=== PATIENT | female | born 1995 | race African-American/Black ===

== ENCOUNTER 2020-01-11 21:43 | Emergency (ER) | payer OTHER ==
[2020-01-11 22:11] LABS: BILIRUBIN,URINE NEGATIVE (NEGATIVE); GLUCOSE, URINE (UA) NEGATIVE (NEGATIVE); KETONES,URINE (UA) NEGATIVE (NEGATIVE); LEUKOCYTE ESTERASE, URINE NEGATIVE (NEGATIVE); NITRITE,URINE NEGATIVE (NEGATIVE); OCCULT BLOOD,URINE NEGATIVE (NEGATIVE); PROTEIN,URINE NEGATIVE (NEGATIVE); UROBILINOGEN,URINE 0.2 (NORMAL) E.U./dL (NORMAL)
[2020-01-11 22:16] LABS: CLARITY,URINE CLEAR (CLEAR); HCG UR QUAL NEGATIVE
[2020-01-11 22:24] LABS: RBC,URINE None Seen /HPF (0-5)
[2020-01-11 22:25] LABS: BACTERIA,URINE None Seen /HPF (None Seen); SQUAMOUS EPITHELIAL CELL,UR MANY Squamous (<= Few)
--- NOTE | 2020-01-11 22:37 | ED Physician Documentation ---
PD HPI FEMALE - Stated complaint Stated Complaint: FEM /CRAMPING - Chief complaint Chief Complaint: Abd Pain - History obtained from History obtained from: Patient - Additional information Additional information: Patient comes emergency department complaining of lower abdominal crampy discomfort and nausea for about the last week. She denies any dysuria. She states she has a little bit of low back pain. She denies localization of the pain to one side or the other. No fevers. The patient states that she began her last menstrual period on December 26 and ended on the . She states that on that day, she had sexual intercourse with her partner and that her symptoms began a few days after that. The patient states thatShe is concerned that she may be , due to the feeling of nausea and tiredness. She states she took a test at home and this was negative. She states she has had urinary tract infections before and that this does not feel like 1 of those. She states she has not been vomiting and has not had any diarrhea. If anything, she states she has had some mild constipation recently, which she defines as harder stools, but still going regularly. Patient states that she is otherwise healthy. She has not had any known or direct sick contacts. No other complaints at this time. Review of Systems Ten Systems: 10 systems reviewed and negative Constitutional: reports: Reviewed and negative Eyes: reports: Reviewed and negative Ears: reports: Reviewed and negative Nose: reports: Reviewed and negative Throat: reports: Reviewed and negative Cardiac: reports: Reviewed and negative Respiratory: reports: Reviewed and negative GI: reports: Abdominal Pain, Nausea : reports: Reviewed and negative Skin: reports: Reviewed and negative Musculoskeletal: reports: Reviewed and negative Neurologic: reports: Reviewed and negative Psychiatric: reports: Reviewed and negative Endocrine: reports: Reviewed and negative Immunocompromised: reports: Reviewed and negative PD PAST MEDICAL HISTORY - Past Medical History Past Medical History: No - Past Surgical History Past Surgical History: Yes General: Hiatal hernia repair - Allergies Allergies/Adverse Reactions: Allergies Allergy/AdvReac Type Severity Reaction Status Date / Time sulfamethoxazole Allergy Anaphylaxis Verified 01/11/20 21:52 [From Bactrim] trimethoprim [From Bactrim] Allergy Anaphylaxis Verified 01/11/20 21:52 - Social History Does the pt smoke?: No Smoking Status: Never smoker Does the pt drink ETOH?: Yes Does the pt have substance abuse?: No - Immunizations Immunizations are current?: No - POLST Patient has POLST: No PD ED PE NORMAL - Vitals Vital signs reviewed: Yes - General General: Alert and oriented X 3, No acute distress - HEENT HEENT: PERRL - Neck Neck: Supple, no meningeal sign - Cardiac Cardiac: RRR, No murmur - Respiratory Respiratory: Clear bilaterally - Abdomen Abdomen: Soft, Non distended, Other (Mild diffuse tenderness lower abdomen; no rebound or guarding) - Derm Derm: Warm and dry - Extremities Extremities: No deformity - Neuro Neuro: Alert and oriented X 3 - Psych Psych: Normal mood, Normal affect Results - Vitals Vitals: Vital Signs - 24 hr 01/11/20 21:48 Temperature 37.2 C Heart Rate 85 Respiratory 16 Rate Blood Pressure 138/66 H O2 Saturation 99 Oxygen O2 Source Room air - Labs Labs: Laboratory Tests 01/11/20 21:02 Urine Color LIGHT YELLOW Urine Clarity CLEAR Urine pH 7.0 Ur Specific [place] <=1.005 Urine Protein NEGATIVE Urine Glucose (UA) NEGATIVE Urine Ketones NEGATIVE Urine Occult Blood NEGATIVE Urine Nitrite NEGATIVE Urine Bilirubin NEGATIVE Urine Urobilinogen 0.2 (NORMAL) Ur Leukocyte Esterase NEGATIVE Urine RBC None Seen Urine WBC 0-3 Ur Squamous Epith Cells MANY Squamous H Urine Bacteria None Seen Urine Culture Comments NOT INDICATED Urine HCG, Qual NEGATIVE PD MEDICAL DECISION MAKING - ED course Complexity details: reviewed results, re-evaluated patient, considered diffe carlottatial, d/w patient ED course: Patient was worked up with urinalysis and test, both of which were found to be negative.I discussed with the patient that at this point, it is very unlikely that she would have any hormones of in her system whatsoever, as she is only 2-1/2 weeks out from First day of her last.. I have discussed with her that she may have 1 of the viral illnesses that is going around and causing GI upset. Some of the discomfort may be from the constipation she has had recently. She does not have a urinary tract infection and does not feel that she has an STD and does not wish to be tested at this time. We have discussed that if she develops copious foul-smelling discharge especially with fever, she should be reevaluated and tested. However, at this time, she feels her discharge is within normal limits. We have also discussed retesting for if she misses her period. Departure - Departure Disposition: 01 Home, Self Care Clinical Impression: Abdominal pain Qualifiers: Abdominal location: lower abdomen, unspecified Qualified Code(s): R10.30 - Lower abdominal pain, unspecified Condition: Good Instructions: ED Abdominal Pain Unkn Cause Comments: Your urinalysis and test are both negative. It is too early at this point, given your last menstrual period and 26 December, for hormones to be in your system, even if you are in the early stages of a . In general, it would be another week before a fertilized egg would be implanted in your uterine lining, and it is only at this point that hormones are produced. If you miss your next., And continue to have symptoms, then you should take another test, [place]. At this point in time, there is no evidence of an STD. However, if you begin to develop heavy vaginal discharge that smells bad, or if you begin to notice increasing pain throughout your pelvis, especially with fever, then you should be checked. There are many viral gastrointestinal illnesses going around right now and these can sometimes cause just a vague sense of intestinal discomfort and nausea. If this is the cause of your symptoms, it will blow over on its own in the next week.
[2020-01-11 22:46] VITALS: BP 128/82
== END 2020-01-11 22:45 | disposition home or self-care (01) ==
LOC: ED 21:43
DX: R10.30 Lower abdominal pain, unspecified (principal)
CPT/HCPCS: 81001; 81025; 87086; 99282; 99283

== ENCOUNTER 2020-06-30 15:36 | Emergency (ER) | payer OTHER ==
[2020-06-30 15:55] VITALS: BP 109/64
[2020-06-30 17:21] LABS: BILIRUBIN,URINE NEGATIVE (NEGATIVE); GLUCOSE, URINE (UA) NEGATIVE (NEGATIVE); KETONES,URINE (UA) NEGATIVE (NEGATIVE); LEUKOCYTE ESTERASE, URINE NEGATIVE (NEGATIVE); NITRITE,URINE NEGATIVE (NEGATIVE); OCCULT BLOOD,URINE NEGATIVE (NEGATIVE); PH,URINE 6.5 PH (5.0-7.5); PROTEIN,URINE NEGATIVE (NEGATIVE); UROBILINOGEN,URINE 0.2 (NORMAL) E.U./dL (NORMAL)
[2020-06-30 17:27] LABS: CLARITY,URINE CLEAR (CLEAR); HCG UR QUAL NEGATIVE
--- NOTE | 2020-06-30 18:05 | ED Physician Documentation ---
History of Present Illness - Stated complaint Stated Complaint: FEMALE - Chief complaint Chief Complaint: Abd Pain - Additonal information Additional information: 24-year-old female presents to the emergency department for evaluation of ab normal vaginal discharge. She reports that approximately 5 days ago she completed a weeklong prescription of Flagyl for bacterial vaginosis. She did follow-up at the [facility] but a repeat pelvic exam was not completed. She felt that the symptoms had improved until yesterday when she began having pelvic cramping and discolored discharge. She denies dysuria, fevers or flank pain. Review of Systems Constitutional: denies: Fever, Chills Nose: denies: Rhinorrhea / runny nose, Reviewed and negative Throat: denies: Dental pain / toothache, Oral lesions / sores, Sore throat Cardiac: denies: Chest pain / pressure, Palpitations, Pedal edema Respiratory: denies: Dyspnea, Cough GI: denies: Abdominal Pain, Nausea, Vomiting : reports: Discharge. denies: Dysuria, Frequency, LMP, Vaginal bleeding, Irregular menses Skin: denies: Rash Musculoskeletal: denies: Neck pain, Back pain PD PAST MEDICAL HISTORY - Past Surgical History Past Surgical History: Yes General: Hiatal hernia repair - Allergies Allergies/Adverse Reactions: Allergies Allergy/AdvReac Type Severity Reaction Status Date / Time sulfamethoxazole Allergy Anaphylaxis Verified 06/30/20 15:55 [From Bactrim] trimethoprim [From Bactrim] Allergy Anaphylaxis Verified 06/30/20 15:55 - Social History Does the pt smoke?: No Smoking Status: Never smoker Does the pt drink ETOH?: Yes Does the pt have substance abuse?: No - Immunizations Immunizations are current?: No - POLST Patient has POLST: No PD ED PE NORMAL - General General: Alert and oriented X 3, No acute distress - Cardiac Cardiac: RRR, No murmur - Respiratory Respiratory: No respiratory distress - Abdomen Abdomen: Normal bowel sounds, Soft - Female Female : Telecommunicator Supervisor present, Other (Normal female external exam. No discharge. Speculum pelvic exam reveals no discharge. No CMT or adnexal tenderness.) Results - Vitals Vitals: Vital Signs - 24 hr 06/30/20 15:51 Temperature 36.5 C Heart Rate 72 Respiratory 16 Rate Blood Pressure 109/64 O2 Saturation 100 Oxygen O2 Source Room air - Labs Labs: Laboratory Tests 06/30/20 17:08 Urine Color YELLOW Urine Clarity CLEAR Urine pH 6.5 Ur Specific [place] 1.010 Urine Protein NEGATIVE Urine Glucose (UA) NEGATIVE Urine Ketones NEGATIVE Urine Occult Blood NEGATIVE Urine Nitrite NEGATIVE Urine Bilirubin NEGATIVE Urine Urobilinogen 0.2 (NORMAL) Ur Leukocyte Esterase NEGATIVE Ur Microscopic Review NOT INDICATED Urine Culture Comments NOT INDICATED Urine HCG, Qual NEGATIVE PD MEDICAL DECISION MAKING - ED course Complexity details: d/w patient ED course: 24-year-old female comes to the ER for evaluation of what she reported as vaginal discharge. She recently completed a course of Flagyl for bacterial vaginosis. Her urine today is unremarkable she is not and it shows no signs of infection. I did do a pelvic exam. She had no abnormal vaginal discharge. There was nothing to suggest yeast infection. There was no CMT or adnexal tenderness. A wet prep was sent. But I will defer any further antibiotics or treatment unless that wet prep is positive. Given how busy the emergency department is at this time she will be discharged without final results but I will follow-up on them tomorrow Departure - Departure Disposition: 01 Home, Self Care Clinical Impression: Vaginal discharge Condition: Stable Record reviewed to determine appropriate education?: Yes Comments: Katey your pelvic exam was essentially normal. You did not appear to have any abnormal vaginal discharge. I have sent what is called a wet prep to the lab to check for yeast or a return of bacterial vaginosis. You will be notified tomorrow if it is positive and you require further treatment.
== END 2020-06-30 18:30 | disposition home or self-care (01) ==
LOC: ED 15:36
DX: N89.8 Other specified noninflammatory disorders of vagina (principal)
CPT/HCPCS: 81001; 81003; 81025; 87086; 87210; 99282; 99283

== ENCOUNTER 2020-07-16 11:26 | Emergency (ER) | payer OTHER ==
--- NOTE | 2020-07-16 12:14 | ED Physician Documentation ---
History of Present Illness - Stated complaint Stated Complaint: FEMALE - Chief complaint Chief Complaint: General - History obtained from History obtained from: Patient - Additonal information Additional information: 24yo Woman presents to the emergency department with 2 weeks worth of grayish thick vaginal discharge associated with vaginal itching and mild dysuria. Also had some spots of vaginal bleeding off cycle. Has had BV in the past and this feels similar. She says she had negative testing for STDs within a month and a half. 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 : None HEENT: None Psych: None Musculoskeletal: None Derm: None - Past Surgical History Past Surgical History: Yes General: Hiatal hernia repair - Present Medications Home Medications: Ambulatory Orders Medication Instructions Recorded Confirmed metroNIDAZOLE [Flagyl] 500 mg PO BID #14 tablet 07/16/20 - Allergies Allergies/Adverse Reactions: Allergies Allergy/AdvReac Type Severity Reaction Status Date / Time sulfamethoxazole Allergy Anaphylaxis Verified 06/30/20 15:55 [From Bactrim] trimethoprim [From Bactrim] Allergy Anaphylaxis Verified 06/30/20 15:55 - Social History Does the pt smoke?: No Smoking Status: Never smoker Does the pt drink ETOH?: Yes ETOH Use: Wine, Beer, Liquor Does the pt have substance abuse?: No - Immunizations Immunizations are current?: Yes - POLST Patient has POLST: No PD ED PE NORMAL - Vitals Vital signs reviewed: Yes - General General: Alert and oriented X 3, No acute distress - Abdomen Abdomen: Soft, Non tender - Female Female : Other (Pelvic exam done with Argelia Andrade RN present and chaperoning. She has some folliculitis from waxing, thin white discharge in the vault with mild cervicitis but no cervical motion or adnexal tenderness.) - Back Back: No CVA TTP - Neuro Neuro: Alert and oriented X 3, Normal speech Results - Vitals Vitals: Vital Signs - 24 hr 07/16/20 11:32 Temperature 36.9 C Heart Rate 68 Respiratory 16 Rate Blood Pressure 106/60 O2 Saturation 100 Oxygen O2 Source Room air - Labs Labs: Microbiology 07/16/20 12:34 Wet Prep - Final Vaginal Laboratory Tests 07/16/20 12:25 Urine Color YELLOW Urine Clarity CLOUDY Urine pH 7.0 Ur Specific [place] 1.020 Urine Protein NEGATIVE Urine Glucose (UA) NEGATIVE Urine Ketones NEGATIVE Urine Occult Blood NEGATIVE Urine Nitrite NEGATIVE Urine Bilirubin NEGATIVE Urine Urobilinogen 0.2 (NORMAL) Ur Leukocyte Esterase MODERATE H Urine RBC 0-5 Urine WBC >25 H Ur Squamous Epith Cells MANY Squamous H Urine Bacteria Many H Ur Microscopic Review INDICATED Urine Culture Comments NOT INDICATED Urine HCG, Qual NEGATIVE Departure - Departure Disposition: 01 Home, Self Care Clinical Impression: Bacterial vaginosis Condition: Good Record reviewed to determine appropriate education?: Yes Instructions: ED Vaginosis Bacterial Prescriptions: metroNIDAZOLE [Flagyl] 500 mg PO BID #14 tablet Comments: Call your doctor to arrange a follow-up appointment, make the next available appointment. In the interim, return anytime if worse or if new symptoms develop.
[2020-07-16 12:32] LABS: BILIRUBIN,URINE NEGATIVE (NEGATIVE); GLUCOSE, URINE (UA) NEGATIVE (NEGATIVE); KETONES,URINE (UA) NEGATIVE (NEGATIVE); LEUKOCYTE ESTERASE, URINE MODERATE (NEGATIVE); NITRITE,URINE NEGATIVE (NEGATIVE); OCCULT BLOOD,URINE NEGATIVE (NEGATIVE); PROTEIN,URINE NEGATIVE (NEGATIVE); UROBILINOGEN,URINE 0.2 (NORMAL) E.U./dL (NORMAL)
[2020-07-16 12:35] LABS: CLARITY,URINE CLOUDY (CLEAR); HCG UR QUAL NEGATIVE
[2020-07-16 12:38] LABS: BACTERIA,URINE Many /HPF (None Seen); RBC,URINE 0-5 /HPF (0-5); SQUAMOUS EPITHELIAL CELL,UR MANY Squamous (<= Few)
[2020-07-16 13:11] VITALS: BP 111/66
[2020-07-16 16:35] LABS: CANDIDA GROUP DNA POSITIVE (NEGATIVE); CANDIDA KRUSEI DNA NEGATIVE (NEGATIVE); TRICHOMONAS VAGINALIS DNA NEGATIVE (NEGATIVE)
== END 2020-07-16 13:15 | disposition home or self-care (01) ==
LOC: ED 11:26
DX: N76.0 Acute vaginitis (principal); B96.89 Other specified bacterial agents as the cause of diseases classified elsewhere
CPT/HCPCS: 81001; 81003; 81025; 81599; 87086; 87210; 87491; 87591; 87661; 87801; 99283; 99284

== ENCOUNTER 2020-09-23 13:23 | Emergency (ER) | payer OTHER ==
[2020-09-23] MEDS ORDERED: cephALEXin 250 MG CAPSULE PO STA (13:47)
[2020-09-23] MEDS ORDERED: predniSONE 20 MG TABLET PO STA (13:47)
[2020-09-23] MEDS ORDERED: FLUCONAZOLE 100 MG TABLET PO STA (13:47)
--- NOTE | 2020-09-23 13:49 | ED Physician Documentation ---
History of Present Illness - Stated complaint Stated Complaint: SWOLLEN LIPS - Chief complaint Chief Complaint: Heent - History obtained from History obtained from: Patient - Additonal information Additional information: She is on day 5 of ciprofloxacin for UTI, still has mild dysuria but now has some discharge as well feeling like a yeast infection and she noted a sore on the left side of the upper lip. She has had that sore before, a few months ago she had a UTI and was on the same attic, but at that time she was also getting Flagyl for bacterial vaginosis and something for yeast infection as well. This time she is only on the Cipro so she is convinced that the lip sore is due to the Cipro. 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 : None HEENT: None Psych: None Musculoskeletal: None Derm: None - Past Surgical History Past Surgical History: Yes General: Hiatal hernia repair - Present Medications Home Medications: Ambulatory Orders Medication Instructions Recorded Confirmed metroNIDAZOLE [Flagyl] 500 mg PO BID #14 tablet 07/16/20 Cephalexin [Keflex] 500 mg PO Q6H #20 capsule 09/23/20 predniSONE [Deltasone] 60 mg PO DAILY 5 Days #15 tablet 09/23/20 - Allergies Allergies/Adverse Reactions: Allergies Allergy/AdvReac Type Severity Reaction Status Date / Time sulfamethoxazole Allergy Anaphylaxis Verified 09/23/20 13:30 [From Bactrim] trimethoprim [From Bactrim] Allergy Anaphylaxis Verified 09/23/20 13:30 - Social History Does the pt smoke?: No Smoking Status: Never smoker Does the pt drink ETOH?: Yes Does the pt have substance abuse?: No - Immunizations Immunizations are current?: Yes - POLST Patient has POLST: No PD ED PE NORMAL - Vitals Vital signs reviewed: Yes - General General: Alert and oriented X 3, No acute distress - HEENT HEENT: Other (There is ulcerated lesion measuring about 3 mm x 1 cm to the inner upper lip with mild swelling. No fluctuance.) - Derm Derm: No rash - Neuro Neuro: Alert and oriented X 3, Normal speech Results - Vitals Vitals: Vital Signs - 24 hr 09/23/20 13:30 Temperature 36.5 C Heart Rate 80 Respiratory 18 Rate Blood Pressure 114/84 H O2 Saturation 100 Oxygen O2 Source Room air PD MEDICAL DECISION MAKING - ED course ED course: 25-year-old woman with apparent medication reaction causing lip sore to Cipro. Also symptoms of a yeast infection. She is administered Diflucan here for that and prednisone and her antibiotics were changed. Departure - Departure Disposition: 01 Home, Self Care Clinical Impression: Vaginal discharge Medication reaction Qualifiers: Encounter type: initial encounter Qualified Code(s): T50.905A - Adverse effect of unspecified drugs, medicaments and biological substances, initial encounter Condition: Good Record reviewed to determine appropriate education?: Yes Prescriptions: predniSONE [Deltasone] 60 mg PO DAILY 5 Days #15 tablet Cephalexin [Keflex] 500 mg PO Q6H #20 capsule Comments: Probably better to avoid ciprofloxacin in the future. Returning if worse. I am changing your antibiotics for the next few days given persistent UTI symptoms.
[2020-09-23 14:02] VITALS: BP 107/71
== END 2020-09-23 14:02 | disposition home or self-care (01) ==
LOC: ED 13:23
DX: N89.8 Other specified noninflammatory disorders of vagina (principal); K13.0 Diseases of lips; T50.905A Adverse effect of unspecified drugs, medicaments and biological substances, initial encounter
CPT/HCPCS: 99282; 99283; A9270; J7512

== ENCOUNTER 2020-09-25 13:24 | Emergency (ER) | payer OTHER ==
[2020-09-25 13:34] VITALS: BP 100/56
[2020-09-25] MEDS ORDERED: LIDOCAINE VISCOUS 2% 15 ML UDC MM STA (13:54)
--- NOTE | 2020-09-25 13:57 | ED Physician Documentation ---
PD HPI SKIN - Stated complaint Stated Complaint: MOUTH/LIP SWELLING - Chief complaint Chief Complaint: Allergic Rx - History obtained from History obtained from: Patient (Recently on Cipro for UTI, the last time she was on Cipro she developed an oral ulcer and lip swelling. This happened again. 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 HEENT: None Psych: None Musculoskeletal: None Derm: None - Past Surgical History Past Surgical History: Yes General: Hiatal hernia repair - Present Medications Home Medications: Ambulatory Orders Medication Instructions Recorded Confirmed metroNIDAZOLE [Flagyl] 500 mg PO BID #14 tablet 07/16/20 Cephalexin [Keflex] 500 mg PO Q6H #20 capsule 09/23/20 predniSONE [Deltasone] 60 mg PO DAILY 5 Days #15 tablet 09/23/20 Compounded Mixture 1 ml TOP Q2H PRN #50 ml 09/25/20 - Allergies Allergies/Adverse Reactions: Allergies Allergy/AdvReac Type Severity Reaction Status Date / Time sulfamethoxazole Allergy Anaphylaxis Verified 09/25/20 13:30 [From Bactrim] trimethoprim [From Bactrim] Allergy Anaphylaxis Verified 09/25/20 13:30 - Social History Does the pt smoke?: No Smoking Status: Never smoker Does the pt drink ETOH?: Yes Does the pt have substance abuse?: No - Immunizations Immunizations are current?: Yes - POLST Patient has POLST: No PD ED PE NORMAL - Vitals Vital signs reviewed: Yes - General General: Alert and oriented X 3, No acute distress (Ulcer on the inner surface of the upper left lip. The swelling has improved significantly. Bedside ultrasound shows no fluid collection.) - Neck Neck: Supple, no meningeal sign, No bony TTP - Neuro Neuro: Alert and oriented X 3, Normal speech Results - Vitals Vitals: Vital Signs - 24 hr 09/25/20 13:30 Temperature 36.5 C Heart Rate 70 Respiratory 16 Rate Blood Pressure 100/56 L O2 Saturation 100 Oxygen O2 Source Room air Departure - Departure Disposition: Home, Self Care Clinical Impression: Oral ulcer Condition: Good Record reviewed to determine appropriate education?: Yes Instructions: ED Berta Sore Prescriptions: Compounded Mixture 1 ml TOP Q2H PRN #50 ml PRN Reason: mouth pain Comments: Should start improving soon, the mixture will help with the pain and inflammation. Return if worsening. Forms: Activity restrictions
== END 2020-09-25 14:03 | disposition home or self-care (01) ==
LOC: ED 13:24
DX: K12.1 Other forms of stomatitis (principal)
CPT/HCPCS: 99282; 99283

== ENCOUNTER 2020-12-05 13:30 | Emergency (ER) | payer OTHER ==
--- NOTE | 2020-12-05 13:58 | ED Physician Documentation ---
PD HPI FEMALE - Stated complaint Stated Complaint: LOW BACK/ABD PX - Chief complaint Chief Complaint: UTI - History obtained from History obtained from: Patient - Additional information Additional information: She has frequent UTIs, she estimates 8/year. Has a pending what sounds like a VCUG with urology next month. Recent course of Macrobid for UTI and about 5 days after stopping Macrobid, about 5 days ago developed urinary frequency, dysuria, right flank pain, foul-smelling urine. No fevers. 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 : None HEENT: None Psych: None Musculoskeletal: None Derm: None - Past Surgical History Past Surgical History: Yes General: Hiatal hernia repair - Present Medications Home Medications: Ambulatory Orders Medication Instructions Recorded Confirmed HYDROcod/ACETAM 5/325 [[place] 5/325] 1 - 2 tab PO Q6H PRN #15 tablet 12/05/20 Phenazopyridine HCl [Pyridium] 200 mg PO TID PRN #6 tablet 12/05/20 cephALEXin [Keflex] 500 mg PO Q6H #40 capsule 12/05/20 - Allergies Allergies/Adverse Reactions: Allergies Allergy/AdvReac Type Severity Reaction Status Date / Time ciprofloxacin [From Cipro] Allergy Edema Verified 12/05/20 14:55 sulfamethoxazole Allergy Anaphylaxis Verified 12/05/20 13:39 [From Bactrim] trimethoprim [From Bactrim] Allergy Anaphylaxis Verified 12/05/20 13:39 - Social History Does the pt smoke?: No Smoking Status: Never smoker Does the pt drink ETOH?: Yes Does the pt have substance abuse?: No - Immunizations Immunizations are current?: Yes - POLST Patient has POLST: No PD ED PE NORMAL - Vitals Vital signs reviewed: Yes - General General: Alert and oriented X 3, No acute distress - Abdomen Abdomen: Soft, Non tender - Back Back: Other (Mild right flank tenderness) - Neuro Neuro: Alert and oriented X 3, Normal speech Results - Vitals Vitals: Vital Signs - 24 hr 12/05/20 12/05/20 12/05/20 13:39 14:13 14:29 Temperature 36.6 C 36.2 C L Heart Rate 74 67 Respiratory 16 18 Rate Blood Pressure 99/55 L 99/63 O2 Saturation 99 98 Oxygen O2 Source Room air - Labs Labs: Laboratory Tests 12/05/20 13:51 Urine Color YELLOW Urine Clarity CLOUDY Urine pH 6.0 Ur Specific [place] 1.025 Urine Protein 100 H Urine Glucose (UA) NEGATIVE Urine Ketones 15 H Urine Occult Blood MODERATE H Urine Nitrite POSITIVE H Urine Bilirubin NEGATIVE Urine Urobilinogen 0.2 (NORMAL) Ur Leukocyte Esterase MODERATE H Urine RBC 11-25 H Urine WBC 11-25 H Urine WBC Clumps PRESENT Ur Squamous Epith Cells MANY Squamous H Urine Bacteria Many H Ur Microscopic Review INDICATED Urine Culture Comments NOT INDICATED Urine HCG, Qual NEGATIVE PD MEDICAL DECISION MAKING - ED course ED course: 25-year-old woman with pyelonephritis. Her allergy list showed cephalexin and Bactrim as allergies. Subsequently she took a first dose of Cipro and then verified that she was allergic to Cipro with a reaction of lip swelling and has had Keflex in the past without issue. Departure - Departure Disposition: 01 Home, Self Care Clinical Impression: Pyelonephritis Condition: Good Record reviewed to determine appropriate education?: Yes Instructions: Pyelonephritis Dc Prescriptions: cephALEXin [Keflex] 500 mg PO Q6H #40 capsule HYDROcod/ACETAM 5/325 [[place] 5/325] 1 - 2 tab PO Q6H PRN #15 tablet PRN Reason: Pain Phenazopyridine HCl [Pyridium] 200 mg PO TID PRN #6 tablet PRN Reason: dysuria Comments: We will culture your urine, the results should be done in 48-72 hours. If an antibiotic change is necessary we will call you. Return if worse in the meantime, especially if you develop increasing flank pain, fevers, or cannot keep down the medication. Forms: Activity restrictions
[2020-12-05 14:16] LABS: BILIRUBIN,URINE NEGATIVE (NEGATIVE); GLUCOSE, URINE (UA) NEGATIVE (NEGATIVE); KETONES,URINE (UA) 15 mg/dL (NEGATIVE); LEUKOCYTE ESTERASE, URINE MODERATE (NEGATIVE); NITRITE,URINE POSITIVE (NEGATIVE); OCCULT BLOOD,URINE MODERATE (NEGATIVE); PROTEIN,URINE 100 mg/dL (NEGATIVE); UROBILINOGEN,URINE 0.2 (NORMAL) E.U./dL (NORMAL)
[2020-12-05 14:18] LABS: CLARITY,URINE CLOUDY (CLEAR); HCG UR QUAL NEGATIVE
[2020-12-05] MEDS ORDERED: CIPROFLOXACIN 250 MG TABLET PO STA (14:21)
[2020-12-05 14:29] VITALS: BP 99/63
[2020-12-05 14:53] LABS: BACTERIA,URINE Many /HPF (None Seen); SQUAMOUS EPITHELIAL CELL,UR MANY Squamous (<= Few); WBC CLUMPS,URINE PRESENT
[2020-12-05] MEDS ORDERED: PHENAZOPYRIDINE 100 MG TABLET PO STA (15:04)
== END 2020-12-05 15:16 | disposition home or self-care (01) ==
LOC: ED 13:30
DX: N12 Tubulo-interstitial nephritis, not specified as acute or chronic (principal); Z88.1 Allergy status to other antibiotic agents
CPT/HCPCS: 81001; 81025; 99283; A9270; 81003; 87086

== ENCOUNTER 2021-04-18 15:19 | Emergency (ER) | payer OTHER ==
[2021-04-18 15:30] VITALS: BP 112/70
[2021-04-18] MEDS ORDERED: PHENAZOPYRIDINE 100 MG TABLET PO STA (15:38)
--- NOTE | 2021-04-18 15:39 | ED Physician Documentation ---
PD HPI ABD PAIN - Stated complaint Stated Complaint: FEMALE - Chief complaint Chief Complaint: UTI - History obtained from History obtained from: Patient (25-year-old woman with frequent UTIs has been worked up by urology without positive findings. 4 days of typical symptoms including dysuria, low back pain, mild nausea, cloudy urine. 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 HEENT: None Psych: None Musculoskeletal: None Derm: None - Past Surgical History Past Surgical History: Yes General: Hiatal hernia repair - Present Medications Home Medications: Ambulatory Orders Medication Instructions Recorded Confirmed Nitrofurantoin [Macrobid] 1 cap PO BID #10 cap 04/18/21 Phenazopyridine HCl [Pyridium] 200 mg PO TID PRN #6 tablet 04/18/21 - Allergies Allergies/Adverse Reactions: Allergies Allergy/AdvReac Type Severity Reaction Status Date / Time ciprofloxacin [From Cipro] Allergy Edema Verified 04/18/21 15:26 sulfamethoxazole Allergy Anaphylaxis Verified 04/18/21 15:26 [From Bactrim] trimethoprim [From Bactrim] Allergy Anaphylaxis Verified 04/18/21 15:26 - Social History Does the pt smoke?: No Smoking Status: Never smoker Does the pt drink ETOH?: Yes Does the pt have substance abuse?: No - Immunizations Immunizations are current?: Yes - POLST Patient has POLST: No PD ED PE NORMAL - Vitals Vital signs reviewed: Yes - General General: Alert and oriented X 3, No acute distress - Abdomen Abdomen: Soft, Non tender - Back Back: No CVA TTP - Derm Derm: Normal color, Warm and dry - Neuro Neuro: Alert and oriented X 3, Normal speech Results - Vitals Vitals: Vital Signs - 24 hr 04/18/21 15:27 Temperature 36.9 C Heart Rate 75 Respiratory 16 Rate Blood Pressure 112/70 O2 Saturation 100 Oxygen O2 Source Room air - Labs Labs: Laboratory Tests 04/18/21 15:35 Urine Color YELLOW Urine Clarity SL. CLOUDY Urine pH 7.0 Ur Specific [place] 1.020 Urine Protein NEGATIVE Urine Glucose (UA) NEGATIVE Urine Ketones NEGATIVE Urine Occult Blood NEGATIVE Urine Nitrite POSITIVE H Urine Bilirubin NEGATIVE Urine Urobilinogen 1 (NORMAL) Ur Leukocyte Esterase SMALL H Urine RBC None Seen Urine WBC 11-25 H Ur Squamous Epith Cells FEW Squamous Urine Bacteria Moderate H Ur Microscopic Review INDICATED Urine Culture Comments INDICATED Urine HCG, Qual NEGATIVE Departure - Departure Disposition: 01 Home, Self Care Clinical Impression: Cystitis Condition: Good Record reviewed to determine appropriate education?: Yes Instructions: ED UTI Cystitis Female Prescriptions: Nitrofurantoin [Macrobid] 1 cap PO BID #10 cap Phenazopyridine HCl [Pyridium] 200 mg PO TID PRN #6 tablet PRN Reason: dysuria Comments: Follow-up with the urologist next month as scheduled. Return for new or worsening symptoms. We will culture your urine, the results should be done in 48-72 hours. If an antibiotic change is necessary we will call you. Return if worse in the meantime, especially if you develop increasing flank pain, fevers, or cannot keep down the medication. Discharge Date/Time: 04/18/21 16:03
--- OUTSIDE RECORDS SUMMARY | 2021-04-18 15:47 | EXTERNAL MEDICAL SUMMARY RPT | Continuity of Care Document ---
:1995 Demographics Phone Unavailable Preferred Language Unknown Marital Status Unknown Jew Affiliation Unknown Race Unknown Ethnic Group Unknown Author Organization [facility] Address [address] [phone] Phone Allergies Encounters Medications Problems Results
[2021-04-18 15:50] LABS: BILIRUBIN,URINE NEGATIVE (NEGATIVE); GLUCOSE, URINE (UA) NEGATIVE (NEGATIVE); KETONES,URINE (UA) NEGATIVE (NEGATIVE); LEUKOCYTE ESTERASE, URINE SMALL (NEGATIVE); NITRITE,URINE POSITIVE (NEGATIVE); OCCULT BLOOD,URINE NEGATIVE (NEGATIVE); PROTEIN,URINE NEGATIVE (NEGATIVE); UROBILINOGEN,URINE 1 (NORMAL) E.U./dL (NORMAL)
[2021-04-18 15:52] LABS: CLARITY,URINE SL. CLOUDY (CLEAR); HCG UR QUAL NEGATIVE
[2021-04-18] MEDS ORDERED: NITROFURANTOIN MACRO 100 MG CAPSULE PO STA (15:57)
[2021-04-18 16:23] LABS: BACTERIA,URINE Moderate /HPF (None Seen); RBC,URINE None Seen /HPF (0-5); SQUAMOUS EPITHELIAL CELL,UR FEW Squamous (<= Few)
== END 2021-04-18 16:03 | disposition home or self-care (01) ==
LOC: ED 15:19
DX: N30.90 Cystitis, unspecified without hematuria (principal)
CPT/HCPCS: 81001; 81025; 87086; 99283; 99284; A9270; 81003; 87077; 87181

== ENCOUNTER 2021-07-25 16:07 | Emergency (ER) | payer OTHER ==
--- NOTE | 2021-07-25 16:46 | XRAY Report ---
PROCEDURE: Chest 1 View X-Ray INDICATIONS: dyspnea TECHNIQUE: One view of the chest was acquired. COMPARISON: None. FINDINGS: Surgical changes and devices: None. Lungs and pleura: No pleural effusions or pneumothorax. Lungs are clear. Mediastinum: Mediastinal contours appear normal. Heart size is normal. Bones and chest wall: No suspicious bony lesions. Overlying soft tissues appear unremarkable. IMPRESSION: Chest without acute cardiopulmonary abnormalities. No focal consolidations. Reviewed by: Vamsi Luis MD on 07/25/2021 4:45 PM PDT Approved by: Vamsi Luis MD on 07/25/2021 4:45 PM PDT Station ID: [id number]
[2021-07-25 16:52] LABS: BASOPHILS % (AUTO) 0.2 %; EOSINOPHILS % (AUTO) 0.5 %; HCT - HEMATOCRIT 35.6 % (37.0-47.0); HGB - HEMOGLOBIN 11.3 g/dL (12.0-16.0); LYMPHOCYTES # (AUTO) 1.5 10^3/uL (1.5-3.5); LYMPHOCYTES % (AUTO) 37.1 %; MEAN CORPUSCULAR HEMOGLOBIN 29.4 pg (27.0-31.0); MEAN CORPUSCULAR HGB CONC 31.7 g/dL (32.0-36.0); MEAN CORPUSCULAR VOLUME 92.7 fL (81.0-99.0); MEAN PLATELET VOLUME 9.5 fL (7.9-10.8); MONOCYTES # (AUTO) 0.3 10^3/uL (0.0-1.0); MONOCYTES % (AUTO) 7.3 %; NEUTROPHILS # (AUTO) 2.3 10^3/uL (1.5-6.6); NEUTROPHILS % (AUTO) 54.9 %; PLT - PLATELET COUNT 265 10^3/uL (130-450); RED BLOOD COUNT 3.84 10^6/uL (4.20-5.40); WHITE BLOOD COUNT 4.1 x10^3/uL (4.8-10.8)
[2021-07-25 17:04] LABS: ALBUMIN 4.4 g/dL (3.2-5.5); ALBUMIN/GLOBULIN RATIO 1.1 (1.0-2.2); BILIRUBIN,TOTAL 0.7 mg/dL (0.2-1.0); CALCIUM 9.6 mg/dL (8.5-10.3); CREATININE 0.7 mg/dL (0.4-1.0); POTASSIUM 3.3 mmol/L (3.5-5.0); TOTAL PROTEIN 8.4 g/dL (6.7-8.2)
--- NOTE | 2021-07-25 17:21 | ED Physician Documentation ---
PD HPI CHEST PAIN - Stated complaint Stated Complaint: SOA/CHEST PX - Chief complaint Chief Complaint: Cardiac - History obtained from History obtained from: Patient - History of Present Illness Timing - onset: Today Timing - onset during: Light activity Timing - details: Abrupt onset Pain level max: 5 Pain level now: 2 Quality: Pressure, Sharp Location: Left chest Radiation: No: Jaw, Neck, Back, Abdominal, Left upper extremity, Right upper extremity Improved by: Rest Worsened by: Exertion Associated symptoms: Shortness of air. No: Diaphoresis, Nausea, Vomiting, Feeling faint / dizzy, Palpitations Similar symptoms before: Has not had sx before Recently seen: Not recently seen - Additional information Additional information: Patient is a 25-year-old female who states that she felt tired after walking up a flight of stairs today, felt like there was a sharp pain in her chest and felt like she was short of air with exertion. Nothing made it better or worse. She states there is now a dull pressure in the chest. Initially it was sharp. No recent travel, no recent surgeries. No history of blood clots. Better with rest, worse with exertion. 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 HEENT: None Psych: None Musculoskeletal: None Derm: None - Past Surgical History Past Surgical History: Yes General: Hiatal hernia repair - Present Medications Home Medications: Ambulatory Orders Medication Instructions Recorded Confirmed Albuterol Sulf [Ventolin Hfa 1 - 2 puffs INH Q4HR PRN #1 inhaler 07/25/21 Inhaler] Nitrofurantoin [Macrobid] 1 cap PO DAILY 07/25/21 - Allergies Allergies/Adverse Reactions: Allergies Allergy/AdvReac Type Severity Reaction Status Date / Time ciprofloxacin [From Cipro] Allergy Edema Verified 07/25/21 16:25 sulfamethoxazole Allergy Anaphylaxis Verified 07/25/21 16:25 [From Bactrim] trimethoprim [From Bactrim] Allergy Anaphylaxis Verified 07/25/21 16:25 - Social History Does the pt smoke?: No Smoking Status: Never smoker Does the pt drink ETOH?: Yes Does the pt have substance abuse?: No - Immunizations Immunizations are current?: Yes - POLST Patient has POLST: No PD ED PE NORMAL - Vitals Vital signs reviewed: Yes - General General: Alert and oriented X 3, No acute distress - HEENT HEENT: Moist mucous membranes - Neck Neck: Supple, no meningeal sign - Cardiac Cardiac: RRR - Respiratory Respiratory: No respiratory distress, Clear bilaterally - Abdomen Abdomen: Soft, Non tender, Non distended - Derm Derm: Warm and dry - Extremities Extremities: No edema, No calf tenderness / cord - Neuro Neuro: Alert and oriented X 3 - Psych Psych: Normal mood, Normal affect Results - Vitals Vitals: Oxygen O2 Source Room air - EKG (time done) 1614 Rate: Rate (enter#) (71) Rhythm: NSR [place]: Normal Intervals: Normal [place] QRS: Normal Ischemia: Normal ST segments - Labs Labs: Laboratory Tests 07/25/21 07/25/21 07/25/21 16:47 16:47 16:47 WBC 4.1 L RBC 3.84 L Hgb 11.3 L Hct 35.6 L MCV 92.7 MCH 29.4 MCHC 31.7 L RDW 13.0 Plt Count 265 MPV 9.5 Neut # (Auto) 2.3 Lymph # (Auto) 1.5 [place] # (Auto) 0.3 Eos # (Auto) 0.0 Baso # (Auto) 0.0 Absolute Nucleated RBC 0.00 Nucleated RBC % 0.0 D-Dimer 299.9 H Sodium 138 Potassium 3.3 L Chloride 101 Carbon Dioxide 26 Anion Gap 11.0 BUN 8 Creatinine 0.7 Estimated GFR (MDRD) 122 Glucose 87 Calcium 9.6 Total Bilirubin 0.7 AST 20 ALT 16 Alkaline Phosphatase 71 Troponin I High Sens Total Protein 8.4 H Albumin 4.4 Globulin 4.0 Albumin/Globulin Ratio 1.1 Lipase 30 07/25/21 16:47 WBC RBC Hgb Hct MCV MCH MCHC RDW Plt Count MPV Neut # (Auto) Lymph # (Auto) [place] # (Auto) Eos # (Auto) Baso # (Auto) Absolute Nucleated RBC Nucleated RBC % D-Dimer Sodium Potassium Chloride Carbon Dioxide Anion Gap BUN Creatinine Estimated GFR (MDRD) Glucose Calcium Total Bilirubin AST ALT Alkaline Phosphatase Troponin I High Sens < 2.3 L Total Protein Albumin Globulin Albumin/Globulin Ratio Lipase - Rads (name of study) cxr Radiology: Final report received, EMP read contemporaneously, See rad report (no acute abnormality) ct pulmonary angio Radiology: Final report received, EMP read contemporaneously, See rad report (no acute abnormality, no PE) PD MEDICAL DECISION MAKING - ED course Complexity details: reviewed results, re-evaluated patient, considered differential, d/w patient ED course: 25-year-old female with chest pain of unclear etiology. No acute findings on laboratory testing, chest x-ray, CT pulmonary angiogram or EKG. Feels slightly better with an inhaler. No evidence of pericarditis or myocarditis. We will have the patient follow-up with her doctor for further care. Patient counseled regarding signs and symptoms for which I believe and urgent re-evaluation would be necessary. Patient with good understanding of and agreement to plan and is comfortable going home at this time This document was made in part using voice recognition software. While efforts are made to proofread this document, sound alike and grammatical errors may occur. Departure - Departure Disposition: 01 Home, Self Care Clinical Impression: Chest pain Qualifiers: Chest pain type: unspecified Qualified Code(s): R07.9 - Chest pain, unspecified Condition: Good Instructions: ED Chest Pain Atypical Unkn Cause Follow-Up: your,doctor in 3 days [Other] Prescriptions: Albuterol Sulf [Ventolin Hfa Inhaler] 1 - 2 puffs INH Q4HR PRN #1 inhaler PRN Reason: Shortness Of Air/Wheezing Comments: The cause of your symptoms is unclear. Your testing does not show any acute abnormalities. Please follow-up with your doctor for further care. Return if you worsen. [facility] to [facility] in [place]. Discharge Date/Time: 07/25/21 21:52
[2021-07-25] MEDS ORDERED: IOPAMIDOL-300 100 ML VIAL ONE (18:23)
[2021-07-25] MEDS ORDERED: ONDANSETRON 4 MG/2 ML VIAL IVP STA (19:26)
[2021-07-25] MEDS ORDERED: IOPAMIDOL-300 100 ML VIAL IVP ONE (19:31)
[2021-07-25] MEDS ORDERED: ALBUTEROL 1 PUFF INH STA (19:49)
--- NOTE | 2021-07-25 20:22 | CT Report ---
PROCEDURE: ANGIO CHEST W/WO INDICATIONS: elevated d-dimer, pleuritic cp CONTRAST: IV CONTRAST: Isovue 300 ml: 80 PO CONTRAST: *NO PO CONTRAST TECHNIQUE: After the administration of intravenous contrast, images were acquired from the pulmonary apices to t he posterior costophrenic angles. 3-dimensional maximum intensity projection (MIP) coronal and sagit huyen reformats were then acquired through the thorax. For radiation dose reduction, the following was used: automated exposure control, adjustment of mA and/or kV according to patient size. COMPARISON: Chest x-ray 07/25/2021 FINDINGS: Image quality: Excellent. Pulmonary arteries: Pulmonary arteries are normal in size, and demonstrate no intraluminal filling d efects to suggest central pulmonary embolism. Lungs and pleura: Lungs are clear. No pleural effusions or pneumothorax. Central and peripheral ai rways are patent. Mediastinum: Heart size is normal, without pericardial effusion. No mediastinal or hilar adenopathy . Thoracic aorta is normal in caliber and enhancement. Esophagus is normal in caliber, without hiat al hernia. Bones and chest wall: No suspicious bony lesions. Ribs and thoracic spine appear intact throughout. No axillary or supraclavicular adenopathy. The thyroid is normal in size and there are no incident al findings. Abdomen: Visualized upper abdominal solid organs appear normal in the early arterial phase of enhanc ement. IMPRESSION: Lungs are clear. 2. No pulmonary embolism. CLINICAL RECOMMENDATION STATEMENTS: In patients <35 years with an ITN detected on CT, MRI, or extrathyroidal ultrasound, the Committee re commends further evaluation with dedicated thyroid ultrasound if the nodule is ?1 cm and has no suspi cious imaging features, and if the patient has normal life expectancy. In patients ?35 years with an ITN detected on CT, MRI, or extrathyroidal ultrasound, the Committee re commends further evaluation with dedicated thyroid ultrasound if the nodule is ?1.5 cm and has no jeremias picious imaging features, and if the patient has normal life expectancy. (ACR, 2014) Reviewed by: Lottie Coleman MD on 07/25/2021 8:21 PM PDT Approved by: Lottie Coleman MD on 07/25/2021 8:21 PM PDT Station ID: [id number]
[2021-07-25 21:54] VITALS: BP 118/69
== END 2021-07-25 21:52 | disposition home or self-care (01) ==
LOC: ED 16:07
DX: R07.1 Chest pain on breathing (principal)
CPT/HCPCS: 36415; 71045; 71275; 80053; 83690; 84484; 85025; 85379; 93005; 94640; 96374; 99284; Q9967

== ENCOUNTER 2021-12-08 16:02 | Emergency (ER) | payer OTHER ==
[2021-12-08 16:46] LABS: BASOPHILS % (AUTO) 0.5 %; EOSINOPHILS # (AUTO) 0.1 10^3/uL (0.0-0.7); EOSINOPHILS % (AUTO) 1.4 %; HCT - HEMATOCRIT 35.4 % (37.0-47.0); HGB - HEMOGLOBIN 11.4 g/dL (12.0-16.0); LYMPHOCYTES # (AUTO) 1.4 10^3/uL (1.5-3.5); LYMPHOCYTES % (AUTO) 32.3 %; MEAN CORPUSCULAR HEMOGLOBIN 29.5 pg (27.0-31.0); MEAN CORPUSCULAR HGB CONC 32.2 g/dL (32.0-36.0); MEAN CORPUSCULAR VOLUME 91.7 fL (81.0-99.0); MEAN PLATELET VOLUME 9.4 fL (7.9-10.8); MONOCYTES # (AUTO) 0.4 10^3/uL (0.0-1.0); MONOCYTES % (AUTO) 9.8 %; NEUTROPHILS # (AUTO) 2.5 10^3/uL (1.5-6.6); NEUTROPHILS % (AUTO) 55.8 %; PLT - PLATELET COUNT 250 10^3/uL (130-450); RED BLOOD COUNT 3.86 10^6/uL (4.20-5.40); RED CELL DISTRIBUTION WIDTH 13.2 % (12.0-15.0); WHITE BLOOD COUNT 4.4 x10^3/uL (4.8-10.8)
[2021-12-08 17:04] LABS: ALBUMIN 4.1 g/dL (3.2-5.5); ALBUMIN/GLOBULIN RATIO 1.1 (1.0-2.2); BILIRUBIN,TOTAL 0.4 mg/dL (0.2-1.0); CALCIUM 8.7 mg/dL (8.5-10.3); CREATININE 0.7 mg/dL (0.4-1.0); POTASSIUM 3.4 mmol/L (3.5-5.0); TOTAL PROTEIN 7.7 g/dL (6.7-8.2)
[2021-12-08 18:06] LABS: BILIRUBIN,URINE NEGATIVE (NEGATIVE); GLUCOSE, URINE (UA) NEGATIVE (NEGATIVE); KETONES,URINE (UA) NEGATIVE (NEGATIVE); LEUKOCYTE ESTERASE, URINE TRACE (NEGATIVE); NITRITE,URINE NEGATIVE (NEGATIVE); OCCULT BLOOD,URINE LARGE (NEGATIVE); PROTEIN,URINE TRACE mg/dL (NEGATIVE); UROBILINOGEN,URINE 0.2 (NORMAL) E.U./dL (NORMAL)
[2021-12-08 18:10] LABS: CLARITY,URINE CLEAR (CLEAR); HCG UR QUAL NEGATIVE
[2021-12-08 18:25] LABS: BACTERIA,URINE Few /HPF (None Seen); RBC,URINE 0-5 /HPF (0-5); SQUAMOUS EPITHELIAL CELL,UR MANY Squamous (<= Few); WBC,URINE 0-3 /HPF (0-5)
--- NOTE | 2021-12-08 18:57 | ED Physician Documentation ---
History of Present Illness - Stated complaint Stated Complaint: ABD AND BACK PAIN - Chief complaint Chief Complaint: Abd Pain - Additonal information Additional information: 26-year-old female presents the emergency department for evaluation of painful menorrhagia. She started her menstrual cycle yesterday. Reports that she is passing more blood clots than normal and having more cramps. She did take 400 of ibuprofen without relief. Patient states that over the last few months her periods have become heavier and more painful. She is not on any OCP, nor did she have an IUD in place. Denies any chest pain nausea vomiting fevers shortness of air or urinary discomfort. No pertinent past surgical history. Review of Systems Constitutional: reports: Reviewed and negative Eyes: reports: Reviewed and negative Ears: reports: Reviewed and negative Nose: reports: Reviewed and negative Throat: reports: Reviewed and negative Cardiac: reports: Reviewed and negative Respiratory: reports: Reviewed and negative GI: reports: Abdominal Pain, Nausea. 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 HEENT: None Psych: None Musculoskeletal: None Derm: None - Past Surgical History Past Surgical History: Yes General: Hiatal hernia repair - Present Medications Home Medications: Ambulatory Orders Medication Instructions Recorded Confirmed Albuterol Sulf [Ventolin Hfa 1 - 2 puffs INH Q4HR PRN #1 inhaler 07/25/21 Inhaler] Nitrofurantoin [Macrobid] 1 cap PO DAILY 07/25/21 - Allergies Allergies/Adverse Reactions: Allergies Allergy/AdvReac Type Severity Reaction Status Date / Time ciprofloxacin [From Cipro] Allergy Edema Verified 12/08/21 16:25 sulfamethoxazole Allergy Anaphylaxis Verified 12/08/21 16:25 [From Bactrim] trimethoprim [From Bactrim] Allergy Anaphylaxis Verified 12/08/21 16:25 - Social History Does the pt smoke?: No Smoking Status: Never smoker Does the pt drink ETOH?: Yes Does the pt have substance abuse?: No - Immunizations Immunizations are current?: Yes - POLST Patient has POLST: No PD ED PE NORMAL - General General: Alert and oriented X 3, No acute distress - HEENT HEENT: PERRL - Neck Neck: Supple, no meningeal sign, No adenopathy - Cardiac Cardiac: RRR, No murmur - Respiratory Respiratory: No respiratory distress - Abdomen Abdomen: Normal bowel sounds, Soft. No: Non tender (Pelvic cramping lower abdomen. non focal. 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 Eye Opening: Spontaneous Motor: Obeys Commands Verbal: Oriented GCS Score: 15 Results - Vitals Vitals: Vital Signs - 24 hr 12/08/21 12/08/21 16:21 18:11 Temperature 36.1 C L Heart Rate 71 69 Respiratory 16 20 Rate Blood Pressure 118/59 L 118/71 O2 Saturation 100 100 Oxygen O2 Source Room air - Labs Labs: Laboratory Tests 12/08/21 12/08/21 12/08/21 16:41 16:41 Unknown WBC 4.4 L RBC 3.86 L Hgb 11.4 L Hct 35.4 L MCV 91.7 MCH 29.5 MCHC 32.2 RDW 13.2 Plt Count 250 MPV 9.4 Neut # (Auto) 2.5 Lymph # (Auto) 1.4 L [place] # (Auto) 0.4 Eos # (Auto) 0.1 Baso # (Auto) 0.0 Absolute Nucleated RBC 0.00 Nucleated RBC % 0.0 Sodium 133 L Potassium 3.4 L Chloride 99 L Carbon Dioxide 26 Anion Gap 8.0 BUN 8 Creatinine 0.7 Estimated GFR (MDRD) 121 Glucose 94 Calcium 8.7 Total Bilirubin 0.4 AST 24 ALT 19 Alkaline Phosphatase 61 Total Protein 7.7 Albumin 4.1 Globulin 3.6 Albumin/Globulin Ratio 1.1 Lipase 40 Urine Color LT RED Urine Clarity CLEAR Urine pH 6.0 Ur Specific [place] <=1.005 Urine Protein TRACE Urine Glucose (UA) NEGATIVE Urine Ketones NEGATIVE Urine Occult Blood LARGE H Urine Nitrite NEGATIVE Urine Bilirubin NEGATIVE Urine Urobilinogen 0.2 (NORMAL) Ur Leukocyte Esterase TRACE H Urine RBC 0-5 Urine WBC 0-3 Ur Squamous Epith Cells MANY Squamous H Urine Bacteria Few Ur Microscopic Review INDICATED Urine Culture Comments NOT INDICATED Urine HCG, Qual NEGATIVE - Rads (name of study) pelvic US Radiology: Final report received (No torsion. Left ovarian appears shifted tow ards the right adnexa. 2 x 3 cm hemorrhagic left ovarian cyst.) PD MEDICAL DECISION MAKING - ED course Complexity details: reviewed results, re-evaluated patient, considered differential, d/w patient ED course: 26-year-old female presents emergency department for evaluation of a painful menstrual cycle. Symptoms began 2 days ago with the onset of her menses. She reports that over the last few months her cycles have become heavier and more painful. She is taken 400 of ibuprofen without relief of symptoms. She has no fevers, no vomiting. On exam there was some mild nonfocal lower pelvic tenderness. Negative McBurney's. Screening labs were without acute worrisome abnormalities including CBC and electrolytes. She is not . Pelvic ultrasound reveals no ovarian torsion. She does have a left ovarian hemorrhagic cyst measuring 2.8 cm in greatest diameter. Patient was given Toradol here in the emergency department. We discussed that the routine treatment of menorrhagia usually includes conservative therapy with ibuprofen. If not markedly better may benefit from trial of OCP. Patient will schedule with [facility] in follow-up. Emergent return precautions otherwise discussed. Departure - Departure Disposition: 01 Home, Self Care Clinical Impression: Menorrhagia Qualifiers: Menorrhagia type: with regular cycle Qualified Code(s): N92.0 - Excessive and frequent menstruation with regular cycle Condition: Stable Record reviewed to determine appropriate education?: Yes Instructions: ED Cramping Menstrual Comments: Fariba you were seen in the emergency department today for increasingly painful and heavier menstrual cycles. Your screening labs today did not show any worrisome findings. We did do a pelvic ultrasound that did not show findings of a uterine fibroid. You do have a left ovarian cyst. Typically initial management of painful menstrual cycles is [id number] medication such as ibuprofen 600 mg with food 3 times a day or 500 mg of tylenol 3 times a day. If you find that the ibuprofen or Tylenol does not improve the symptoms with your cycles. You may benefit from follow-up with your OB. Sometimes starting oral contraceptive therapy can help reduce painful and lengthy menstrual cycles. Return to the ER if you have fevers, uncontrolled vomiting severe or different abdominal pain.
[2021-12-08] MEDS ORDERED: KETOROLAC 30 MG/ML VIAL IVP STA (20:21)
--- NOTE | 2021-12-08 20:23 | Ultrasound Report ---
PROCEDURE: Pelvic w/Transvag+Doppler Comp INDICATIONS: pelvic pain, R TECHNIQUE: Real-time scanning was performed of the pelvic organs, with image documentation. Additional endovagi nal scanning was necessary due to incomplete visualization of the adnexal and endometrial structures by transabdominal scanning. COMPARISON: None. FINDINGS: No pathologic free abdominal or pelvic fluid. Uterus: Uterus is normal in size at 6.7 x 3.0 x 4.4 cm. The endometrium measures 4.9 mm in combined thickness. Ovaries: Right ovary measures 3.0 x 2.0 x 3.9 cm, volume 12.4 cc. Thel left ovary measures 4.1 x 2.8 x 3.7 cm, volume 21.9 cc. There is a focus of complex echogenicity within the left ovary measuring 2 .2 x 1.8 x 2.8 cm. Vascular flow is present within the ovaries bilaterally. Free fluid is noted withi n the cul-de-sac. IMPRESSION: Complex focus of echogenicity within the left ovary suggestive of hemorrhagic cyst. Reviewed by: Lottie Coleman MD on 12/08/2021 8:22 PM PST Approved by: Lottie Coleman MD on 12/08/2021 8:22 PM PST Station ID: [id number]
[2021-12-08 20:30] VITALS: BP 117/64
== END 2021-12-08 20:40 | disposition home or self-care (01) ==
LOC: ED 16:02
DX: N92.0 Excessive and frequent menstruation with regular cycle (principal)
CPT/HCPCS: 36415; 80053; 81001; 81003; 81025; 83690; 85025; 87086; 93975; 96374; 99282

== ENCOUNTER 2021-12-25 16:18 | Emergency (ER) | payer OTHER ==
[2021-12-25 16:38] LABS: BILIRUBIN,URINE NEGATIVE (NEGATIVE); CLARITY,URINE CLOUDY (CLEAR); GLUCOSE, URINE (UA) NEGATIVE (NEGATIVE); KETONES,URINE (UA) NEGATIVE (NEGATIVE); LEUKOCYTE ESTERASE, URINE LARGE (NEGATIVE); NITRITE,URINE POSITIVE (NEGATIVE); OCCULT BLOOD,URINE SMALL (NEGATIVE); PROTEIN,URINE 30 mg/dL (NEGATIVE); UROBILINOGEN,URINE 0.2 (NORMAL) E.U./dL (NORMAL)
[2021-12-25 16:39] LABS: HCG UR QUAL NEGATIVE
[2021-12-25 16:52] LABS: BACTERIA,URINE Many /HPF (None Seen); SQUAMOUS EPITHELIAL CELL,UR MANY Squamous (<= Few); WBC CLUMPS,URINE PRESENT; WBC,URINE >25 /HPF (0-5)
[2021-12-25] MEDS ORDERED: IBUPROFEN 600 MG TABLET PO STA (16:59)
[2021-12-25] MEDS ORDERED: PHENAZOPYRIDINE 100 MG TABLET PO STA (16:59)
[2021-12-25] MEDS ORDERED: cephALEXin 250 MG CAPSULE PO STA (16:59)
[2021-12-25] MEDS ORDERED: CEPHALEXIN 250 MG Prepack 8 CAP BOTTLE PO STA (17:31)
[2021-12-25] MEDS ORDERED: PHENAZOPYRIDINE 100 MG TABLETS (Prepack) PO PRN (17:31)
--- NOTE | 2021-12-25 17:35 | ED Physician Documentation ---
PD HPI FEMALE - Stated complaint Stated Complaint: FEMALE - Chief complaint Chief Complaint: UTI - History obtained from History obtained from: Patient - History of Present Illness Associated symptoms: Dysuria, Urinary frequency. No: Fever, Vaginal discharge, Genital sore/lesion Contributing factors: No: , Exposed to STD Similar symptoms before: Diagnosis (several prior UTIs, treated and symptoms resolved between episodes.) Recently seen: Clinic (seen at [facility] clinic and had UA c/w UTI and given fosfomycin single dose. SHe states has not had improvement in symptoms now 3 days later. HAs not heard on her urine culture result since [facility] closed for weekend and holiday tomorrow.) Review of Systems Constitutional: denies: Fever, Chills : reports: Dysuria, Frequency Skin: reports: Other (she also has had a small lump left suprascauplar area for week or more that has gotten tender and red. 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 : None HEENT: None Psych: None Musculoskeletal: None Derm: None - Past Surgical History Past Surgical History: Yes General: Hiatal hernia repair - Present Medications Home Medications: Ambulatory Orders Medication Instructions Recorded Confirmed Albuterol Sulf [Ventolin Hfa 1 - 2 puffs INH Q4HR PRN #1 inhaler 07/25/21 Inhaler] Nitrofurantoin [Macrobid] 1 cap PO DAILY 07/25/21 Phenazopyridine HCl [Pyridium] 100 mg PO TID PRN #15 tablet 12/25/21 cephALEXin [Keflex] 500 mg PO TID 5 Days #15 cap 12/25/21 - Allergies Allergies/Adverse Reactions: Allergies Allergy/AdvReac Type Severity Reaction Status Date / Time ciprofloxacin [From Cipro] Allergy Edema Verified 12/25/21 16:22 sulfamethoxazole Allergy Anaphylaxis Verified 12/25/21 16:22 [From Bactrim] trimethoprim [From Bactrim] Allergy Anaphylaxis Verified 12/25/21 16:22 - Social History Does the pt smoke?: No Smoking Status: Never smoker Does the pt drink ETOH?: Yes Does the pt have substance abuse?: No - Immunizations Immunizations are current?: Yes - POLST Patient has POLST: No PD ED PE NORMAL - Vitals Vital signs reviewed: Yes - General General: Alert and oriented X 3, Well developed/nourished - Female Female : Deferred - Back Back: No CVA TTP - Derm Derm: Normal color, Warm and dry, Other (left suprascapular area with 1.5 cm diameter area of raised swelling and tenderness, with central pointing. SMall induration without obvious fluctuance. Bedside U/S though, shows small fluid collection 4 mm diameter.) - Extremities Extremities: Normal ROM s pain Results - Vitals Vitals: Vital Signs - 24 hr 12/25/21 12/25/21 16:19 17:42 Temperature 36 C L Heart Rate 65 64 Respiratory 14 18 Rate Blood Pressure 112/70 110/72 O2 Saturation 99 98 Oxygen O2 Source Room air - Labs Labs: Laboratory Tests 12/25/21 16:29 Urine Color YELLOW Urine Clarity CLOUDY Urine pH 6.0 Ur Specific [place] 1.025 Urine Protein 30 H Urine Glucose (UA) NEGATIVE Urine Ketones NEGATIVE Urine Occult Blood SMALL H Urine Nitrite POSITIVE H Urine Bilirubin NEGATIVE Urine Urobilinogen 0.2 (NORMAL) Ur Leukocyte Esterase LARGE H Urine RBC 6-10 H Urine WBC >25 H Urine WBC Clumps PRESENT Ur Squamous Epith Cells MANY Squamous H Urine Bacteria Many H Ur Microscopic Review INDICATED Urine Culture Comments NOT INDICATED Urine HCG, Qual NEGATIVE Procedures - Abscess I&D (location) left thoracic suprascapular area Preparation: Confirmed with ultrasound, Marcaine 0.5% Incision: Incised with scalpel, Purulent drainage (with plug of thicker materail c/w sebaceum.) Other: Pt tolerated well PD MEDICAL DECISION MAKING - ED course Complexity details: considered differential (UA is c/w UTI and she has had urine test/culture few days ago at [facility], so she will be able to find out culture result sooner waiting for that clinic to open AM than for us to get new culture. We do not have access to [facility] labs at this time. ), d/w patient Departure - Departure Disposition: 01 Home, Self Care Clinical Impression: Infected sebaceous cyst of skin UTI (urinary tract infection) Qualifiers: Urinary tract infection type: acute cystitis Hematuria presence: without hematuria Qualified Code(s): N30.00 - Acute cystitis without hematuria Condition: Stable Record reviewed to determine appropriate education?: Yes Instructions: ED UTI Cystitis Female Follow-Up: COLT ROSARIO DO [Primary Care Provider] - Prescriptions: cephALEXin [Keflex] 500 mg PO TID 5 Days #15 cap Phenazopyridine HCl [Pyridium] 100 mg PO TID PRN #15 tablet PRN Reason: Abdominal Pain Comments: Regarding the urinary tract infection, stay well-hydrated and use Tylenol or ibuprofen if needed for discomfort. Consider some ibuprofen actually 3 times a day for the next several days to reduce inflammation of the urethra. You can also use phenazopyridine to help with urinary discomfort. We will try cephalexin antibiotic 3 times a day for the next 6 days for the infection. [facility] [place] see if they have the culture results from last week to help direct antibiotic choice further. Regarding the upper back abscess, use some warm moist towels to the area periodically to help promote further drainage and try to massage around it to promote drainage tonight and tomorrow. It should improve better with the purulence out from the incision and also with the antibiotics for the bladder as well. I transmitted your prescriptions to [facility] pharmacy. Forms: Activity restrictions Discharge Date/Time: 12/25/21 17:45
[2021-12-25 17:43] VITALS: BP 110/72
== END 2021-12-25 17:45 | disposition home or self-care (01) ==
LOC: ED 16:18
DX: L72.3 Sebaceous cyst (principal); N30.00 Acute cystitis without hematuria
CPT/HCPCS: 10060; 81001; 81025; 99282; 99283; A9270; 81003; 87086

== ENCOUNTER 2022-01-19 08:00 | Outpatient (CLI) | payer OTHER | END 2022-01-19 23:59 | LOC: LAB.N 08:00 | PROVIDERS: ATTEND Family Medicine | DX: N39.0 Urinary tract infection, site not specified (principal) | CPT/HCPCS: 87086 ==

== ENCOUNTER 2022-02-20 14:24 | Emergency (ER) | payer OTHER ==
--- OUTSIDE RECORDS SUMMARY | 2022-02-20 14:35 | EXTERNAL MEDICAL SUMMARY RPT | Continuity of Care Document ---
:1995 Author Organization [place] Address [address] [place] [address] Phone Care Team Providers Name Role Phone Deon VELÁZQUEZ Unavailable Unavailable Allergies No information. Encounters No information. Medications date description facility 20220118 cephalexin All 20220118 fluconazole All Problems date description facility 20220213 Dysuria [facility] 20220118 Urine C&S All 20220118 Urinary tract infectious disease All 20220118 Urinary tract infection, site not speci fied All Procedures date description facility 20220213 [facility] 20220118 POC URINALYSIS DIP All 20220118 Urine C&S All Results test status date ordered by attending specimen misael e Urobilinogen_Presence_ unknown 20220118 unknown unknown unknown in_Urine_by_Test_strip Specific_gravity_of_Ur unknown 20220118 unknown unknown unknown ine_by_Test_strip pH_of_Urine_by_Test_st unknown [id number] unknown unknown unknown rip Nitrite_Presence_in_Ur unknown [id number] unknown unknown unknown ine_by_Test_strip Leukocyte_esterase_Pre unknown [id number] unknown unknown unknown sence_in_Urine_by_Test_ strip Ketones_Mass_volume_in unknown [id number] unknown unknown unknown _Urine_by_Test_strip Glucose_Mass_volume_in unknown [id number] unknown unknown unknown _Urine_by_Test_strip Color_of_Urine unknown [id number] unknown unknown unknown Bilirubin.total_Presen unknown [id number] unknown unknown unknown ce_in_Urine_by_Test_str ip Appearance_of_Urine unknown [id number] unknown unknown unk nown urinalysis_routine unknown [id number] unknown unknown unkn own appearance_urine unknown [id number] unknown unknown unknow n leukocyte_esterase_uri unknown [id number] unknown unknown unknown ne_by_dipstick urobilinogen_urine_sem unknown [id number] unknown unknown unknown iquantitative_dipstick_ specific_gravity_urine unknown [id number] unknown unknown unknown pH_urine_semiquantitat unknown 20220118 unknown unknown unknown vanessa nitrite_urine_semiquan unknown 20220118 unknown unknown unknown titative ketones_urine_by_test_ unknown 20220118 unknown unknown unknown strip bilirubin_urine unknown 20220118 unknown unknown unknown urine_color unknown 20220118 unknown unknown unknown Albumin_Presence_in_Ur unknown 20220118 unknown unknown unknown ine RBC_urine_dipstick unknown 20220118 unknown unknown unkn own Erythrocytes_area_in_U unknown 20220118 unknown unknown unknown rine_sediment_by_Micros copy_high_power_field glucose_urine_semiquan unknown 20220118 unknown unknown unknown titative protein_urine_semiquan unknown 20220118 unknown unknown unknown titative_dipstick_ DIPSTICK_URINE_STRIP_L unknown 20220118 unknown unknown unknown OT_NUMBER facility observation status value reference units lab abnor mal line range code notes All Urobilinogen unknown negative unknown _5818 unkno wn unknown _Presence_in_ -0 Urine_by_Test _strip All Specific_gra unknown 1.015 unknown _5811 unknown unknown vity_of_Urine -5 _by_Test_stri p All pH_of_Urine_ unknown 6 unknown _5803 unknown unknown by_Test_strip -2 All Nitrite_Pres unknown negative unknown _5802 unkno wn unknown ence_in_Urine -4 _by_Test_stri p All Leukocyte_es unknown 2+ unknown _5799 unknown unknown terase_Presen -2 ce_in_Urine_b y_Test_strip All Ketones_Mass unknown negative unknown _5797 unkno wn unknown _volume_in_Ur -6 ine_by_Test_s trip All Glucose_Mass unknown negative unknown _5792 unkno wn unknown _volume_in_Ur -7 ine_by_Test_s trip All Color_of_Uri unknown yellow unknown _5778 unknown unknown ne -6 All Bilirubin.to unknown negative unknown _5770 unkno wn unknown tal_Presence_ -3 in_Urine_by_T est_strip All Appearance_o unknown clear unknown _5767 unknown unknown f_Urine -9 All urinalysis_r unknown Clean unknown _47 unknown unknown outine Catch All appearance_u unknown clear unknown _328 unknown unknown rine All leukocyte_es unknown 2+ unknown _327 unknown unknown terase_urine_ by_dipstick All urobilinogen unknown negative unknown _326 unkno wn unknown _urine_semiqu antitative_di pstick_ All specific_gra unknown 1.015 unknown _325 unknown unknown vity_urine All pH_urine_sem unknown 6 unknown _324 unknown unknown iquantitative All nitrite_urin unknown negative unknown _323 unkno wn unknown e_semiquantit ative All ketones_urin unknown negative unknown _322 unkno wn unknown e_by_test_str ip All bilirubin_ur unknown negative unknown _319 unkno wn unknown ine All urine_color unknown yellow unknown _2751 unknown unknown All Albumin_Pres unknown negative unknown _1753 unkno wn unknown ence_in_Urine -3 All RBC_urine_di unknown 1+ unknown _1700 unknown unknown pstick 005 All Erythrocytes unknown 1+ unknown _1394 unknown unknown _area_in_Urin 5-1 e_sediment_by _Microscopy_h igh_power_fie ld All glucose_urin unknown negative unknown _123 unkno wn unknown e_semiquantit ative All protein_urin unknown negative unknown _118 unkno wn unknown e_semiquantit ative_dipstic k_ All DIPSTICK_URI unknown [id number] unknown _1014 unknown unknown NE_STRIP_LOT_ 00 NUMBER Vital Signs date measurement value source 20220118 weight_standard 136 lb 20220118 weight_metric 61.69 kg 20220118 temperature_standard 98.8 F 20220118 temperature_metric 37.11 C 20220118 respiration_rate 16 /min 20220118 heart_rate 67 /min 20220118 BP_systolic 104 mm[Hg] 20220118 BP_diastolic 64 mm[Hg] 20220213 weight_standard 110.98 lb 20220213 weight_metric 50.34 kg 20220213 respiration_rate 16 /min 20220213 height_standard 59 in 20220213 height_metric 149.86 cm 20220213 heart_rate 72 /min 20220213 BP_systolic 102 mm[Hg] 20220213 BP_diastolic 70 mm[Hg] 20220213 BMI 22.4 kg/m2
[2022-02-20 15:04] LABS: BILIRUBIN,URINE NEGATIVE (NEGATIVE); LEUKOCYTE ESTERASE, URINE TRACE (NEGATIVE); OCCULT BLOOD,URINE NEGATIVE (NEGATIVE); PROTEIN,URINE 100 mg/dL (NEGATIVE)
[2022-02-20 15:12] LABS: HCG UR QUAL NEGATIVE
[2022-02-20 15:36] LABS: CLARITY,URINE CLEAR (CLEAR)
[2022-02-20 15:39] LABS: BACTERIA,URINE Rare /HPF (None Seen); RBC,URINE 0-5 /HPF (0-5); SQUAMOUS EPITHELIAL CELL,UR FEW Squamous (<= Few)
[2022-02-20] MEDS ORDERED: FLUCONAZOLE 100 MG TABLET PO STA (16:16)
--- NOTE | 2022-02-20 16:21 | ED Physician Documentation ---
History of Present Illness - Stated complaint Stated Complaint: female gu - Chief complaint Chief Complaint: UTI - History obtained from History obtained from: Patient - Additonal information Additional information: Patient comes to the emergency department chief complaint of vaginal pain and burningAfter being on amoxicillin for 4 days for urinary tract infection. Patient states that she has a history of frequent UTIs and has had yeast infections before and this feels the same. She reports some mild increase in discharge. No fevers or chills. She states she still has some back pain. She has been taking ibuprofen for the symptoms. No abdominal pain. No other complaints at this time. Review of Systems Ten Systems: 10 systems reviewed and negative Constitutional: reports: Reviewed and negative Eyes: reports: Reviewed and negative Ears: reports: Reviewed and negative Nose: reports: Reviewed and negative Throat: reports: Reviewed and negative Cardiac: reports: Reviewed and negative Respiratory: reports: Reviewed and negative GI: reports: Reviewed and negative : reports: Discharge, Other (Vaginal discomfort) Skin: reports: Reviewed and negative Musculoskeletal: reports: Back pain Neurologic: reports: Reviewed and negative Psychiatric: reports: Reviewed and negative Endocrine: reports: Reviewed and negative Immunocompromised: reports: Reviewed and negative PD PAST MEDICAL HISTORY - Past Medical History Cardiovascular: None Respiratory: None Neuro: None Endocrine/Autoimmune: None GI: None [employer]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 : Chronic bladder infection HEENT: None Psych: None Musculoskeletal: None Derm: None - Past Surgical History Past Surgical History: Yes General: Hiatal hernia repair - Present Medications Home Medications: Ambulatory Orders Medication Instructions Recorded Confirmed Phenazopyridine HCl [Pyridium] 100 mg PO TID PRN #15 tablet 12/25/21 02/20/22 Amoxicillin 500 mg PO TID 02/20/22 02/20/22 Fluconazole [Diflucan] 1 tablet PO ONCE 1 Days #1 tablet 02/20/22 - Allergies Allergies/Adverse Reactions: Allergies Allergy/AdvReac Type Severity Reaction Status Date / Time ciprofloxacin [From Cipro] Allergy Edema Verified 02/20/22 14:31 sulfamethoxazole Allergy Anaphylaxis Verified 02/20/22 14:31 [From Bactrim] trimethoprim [From Bactrim] Allergy Anaphylaxis Verified 02/20/22 14:31 - Social History Does the pt smoke?: No Smoking Status: Never smoker Does the pt drink ETOH?: Yes Does the pt have substance abuse?: No - Immunizations Immunizations are current?: Yes - POLST Patient has POLST: No PD ED PE NORMAL - Vitals Vital signs reviewed: Yes - General General: Alert and oriented X 3, No acute distress, Well developed/nourished - HEENT HEENT: Atraumatic, PERRL, EOMI, Moist mucous membranes - Neck Neck: Supple, no meningeal sign - Cardiac Cardiac: RRR, No murmur, Strong equal pulses - Respiratory Respiratory: No respiratory distress, Clear bilaterally - Abdomen Abdomen: Soft, Non tender, Non distended - Derm Derm: Normal color, Warm and dry, No rash - Extremities Extremities: No deformity, No edema - Neuro Neuro: Alert and oriented X 3, 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, Normal speech - Psych Psych: Normal mood, Normal affect Results - Vitals Vitals: Vital Signs - 24 hr 02/20/22 14:28 Temperature 36.6 C Heart Rate 73 Respiratory 16 Rate Blood Pressure 119/64 O2 Saturation 100 Oxygen O2 Source Room air - Labs Labs: Laboratory Tests 02/20/22 14:41 Urine Color ORANGE Urine Clarity CLEAR Urine pH 5.0 Ur Specific [place] 1.020 Urine Protein 100 H Urine Glucose (UA) Urine Ketones Urine Occult Blood NEGATIVE Urine Nitrite Urine Bilirubin NEGATIVE Urine Urobilinogen Ur Leukocyte Esterase TRACE H Urine RBC 0-5 Urine WBC 11-25 H Ur Squamous Epith Cells FEW Squamous Urine Bacteria Rare Ur Microscopic Review INDICATED Urine Culture Comments INDICATED Urine HCG, Qual NEGATIVE PD MEDICAL DECISION MAKING - ED course Complexity details: considered differential, d/w patient ED course: The patient was given a dose of Diflucan here and instructed to sheepskin pickler another dose of the pharmacy to take in a couple of days. We have discussed that she may also use vaginal suppository if she would like. She should finish her antibiotic course. We have discussed the usual indications for return. Departure - Departure Disposition: 01 Home, Self Care Clinical Impression: Vaginal candidiasis Condition: Stable Instructions: ED Vaginal Infec Fungal [place] Prescriptions: Fluconazole [Diflucan] 1 tablet PO ONCE 1 Days #1 tablet Comments: You have been given your first dose of Diflucan here in the emergency department, and should take your second dose in 2 days. Forms: Activity restrictions
[2022-02-20 16:26] VITALS: BP 122/77
[2022-02-20 18:12] LABS: BACTERIAL VAGINOSIS DNA NEGATIVE (NEGATIVE); CANDIDA GLABRATA DNA POSITIVE (NEGATIVE); CANDIDA GROUP DNA NEGATIVE (NEGATIVE); CANDIDA KRUSEI DNA NEGATIVE (NEGATIVE); TRICHOMONAS VAGINALIS DNA NEGATIVE (NEGATIVE)
[2022-02-20 23:22] LABS: CHLAMYDIA TRACHOMATIS DNA NEGATIVE (NEGATIVE); NEISSERIA GONORRHOEAE DNA NEGATIVE (NEGATIVE)
== END 2022-02-20 16:35 | disposition home or self-care (01) ==
LOC: ED 14:24
DX: B37.3 Candidiasis of vulva and vagina (principal)
CPT/HCPCS: 81001; 81025; 81514; 87077; 87086; 87491; 87591; 99282; 99283; A9270; 81003; 87661

== ENCOUNTER 2022-03-02 16:20 | Emergency (ER) | payer OTHER ==
[2022-03-02 16:36] VITALS: BP 130/81
--- OUTSIDE RECORDS SUMMARY | 2022-03-02 16:42 | EXTERNAL MEDICAL SUMMARY RPT | Continuity of Care Document ---
:1995 Author Organization [place] Address [address] [place] [address] Phone Care Team Providers Name Role Phone MD Unavailable Unavailable Allergies No information. Encounters No information. Medications date description facility 20220118 cephalexin All 20220118 fluconazole All Problems date description facility 20220213 [facility] 20220118 Urine C&S All 20220118 Urinary tract infectious disease All 20220118 Urinary tract infection, site not speci fied All Procedures date description facility 20220213 [facility] 20220118 POC URINALYSIS DIP All 20220118 Urine C&S All Results test status date ordered by attending specimen misael e Urobilinogen_Presence_ unknown 20220118 unknown unknown unknown in_Urine_by_Test_strip Specific_gravity_of_Ur unknown [id number] unknown unknown unknown ine_by_Test_strip pH_of_Urine_by_Test_st unknown [id number] unknown unknown unknown rip Nitrite_Presence_in_Ur unknown [id number] unknown unknown unknown ine_by_Test_strip Leukocyte_esterase_Pre unknown 81608212 unknown unknown unknown sence_in_Urine_by_Test_ strip Ketones_Mass_volume_in unknown [id number] unknown unknown unknown _Urine_by_Test_strip Glucose_Mass_volume_in unknown 45668209 unknown unknown unknown _Urine_by_Test_strip Color_of_Urine unknown 78211062 unknown unknown unknown Bilirubin.total_Presen unknown 44100880 unknown unknown unknown ce_in_Urine_by_Test_str ip Appearance_of_Urine unknown [id number] unknown unknown unk nown urinalysis_routine unknown 20919780 unknown unknown unkn own appearance_urine unknown 25546953 unknown unknown unknow n leukocyte_esterase_uri unknown 07824452 unknown unknown unknown ne_by_dipstick urobilinogen_urine_sem unknown 15439644 unknown unknown unknown iquantitative_dipstick_ specific_gravity_urine unknown 24273922 unknown unknown unknown pH_urine_semiquantitat unknown 19819460 unknown unknown unknown vanessa nitrite_urine_semiquan unknown 20220118 [...] unknown e_semiquantit ative_dipstic k_ All DIPSTICK_URI unknown 285429 unknown _1014 unknown unknown NE_STRIP_LOT_ 00 NUMBER [...]
[2022-03-02 16:57] LABS: BILIRUBIN,URINE NEGATIVE (NEGATIVE); GLUCOSE, URINE (UA) NEGATIVE (NEGATIVE); KETONES,URINE (UA) 15 mg/dL (NEGATIVE); LEUKOCYTE ESTERASE, URINE NEGATIVE (NEGATIVE); NITRITE,URINE NEGATIVE (NEGATIVE); OCCULT BLOOD,URINE LARGE (NEGATIVE); PROTEIN,URINE NEGATIVE (NEGATIVE); UROBILINOGEN,URINE 0.2 (NORMAL) E.U./dL (NORMAL)
[2022-03-02 16:59] LABS: CLARITY,URINE SL. CLOUDY (CLEAR); HCG UR QUAL NEGATIVE
[2022-03-02 17:01] LABS: BASOPHILS % (AUTO) 0.4 %; EOSINOPHILS % (AUTO) 0.4 %; HGB - HEMOGLOBIN 11.8 g/dL (12.0-16.0); LYMPHOCYTES # (AUTO) 1.4 10^3/uL (1.5-3.5); LYMPHOCYTES % (AUTO) 27.1 %; MEAN CORPUSCULAR HEMOGLOBIN 28.9 pg (27.0-31.0); MEAN CORPUSCULAR HGB CONC 31.9 g/dL (32.0-36.0); MEAN CORPUSCULAR VOLUME 90.5 fL (81.0-99.0); MEAN PLATELET VOLUME 9.8 fL (7.9-10.8); MONOCYTES # (AUTO) 0.3 10^3/uL (0.0-1.0); MONOCYTES % (AUTO) 6.6 %; NEUTROPHILS # (AUTO) 3.4 10^3/uL (1.5-6.6); NEUTROPHILS % (AUTO) 65.3 %; PLT - PLATELET COUNT 267 10^3/uL (130-450); RED BLOOD COUNT 4.09 10^6/uL (4.20-5.40); RED CELL DISTRIBUTION WIDTH 13.4 % (12.0-15.0); WHITE BLOOD COUNT 5.2 x10^3/uL (4.8-10.8)
[2022-03-02 17:07] LABS: BACTERIA,URINE Few /HPF (None Seen); RBC,URINE TNTC /HPF (0-5); SQUAMOUS EPITHELIAL CELL,UR MANY Squamous (<= Few); WBC,URINE 0-3 /HPF (0-5)
[2022-03-02 17:18] LABS: ALBUMIN 4.4 g/dL (3.2-5.5); ALBUMIN/GLOBULIN RATIO 1.1 (1.0-2.2); BILIRUBIN,TOTAL 0.6 mg/dL (0.2-1.0); CALCIUM 9.2 mg/dL (8.5-10.3); CREATININE 0.8 mg/dL (0.4-1.0); POTASSIUM 3.7 mmol/L (3.5-5.0); TOTAL PROTEIN 8.4 g/dL (6.7-8.2)
--- NOTE | 2022-03-02 17:41 | ED Physician Documentation ---
History of Present Illness - Stated complaint Stated Complaint: FEMALE - Chief complaint Chief Complaint: Abd Pain - History obtained from History obtained from: Patient - History of Present Illness Pain level max: 0 Pain level now: 0 - Additonal information Additional information: Patient is a 26-year-old female who presents to the emergency department with abdominal pain. She states that she has chronic urinary tract infections. She states that she has been on several antibiotics recently. She is now complaining of lower pelvic pain. Had a CT scan today at the [facility]. She states the results will be available in 24 to 48 hours. No fevers. No chills. Mild diarrhea. No constipation. She states that she is still having dysuria despite the recent antibiotics. She states the bacterial vaginitis is felt similar in the past. Review of Systems Constitutional: denies: Fever, Chills Respiratory: denies: Cough GI: reports: Diarrhea (Mild). denies: Vomiting, Hematemesis, Bloody / black stool : reports: Dysuria. 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 : Chronic bladder infection HEENT: None Psych: None Musculoskeletal: None Derm: None - Past Surgical History Past Surgical History: Yes General: Hiatal hernia repair - Present Medications Home Medications: Ambulatory Orders Medication Instructions Recorded Confirmed Phenazopyridine HCl [Pyridium] 100 mg PO TID PRN #15 tablet 12/25/21 02/20/22 Amoxicillin 500 mg PO TID 02/20/22 02/20/22 Fluconazole [Diflucan] 1 tablet PO ONCE 1 Days #1 tablet 02/20/22 - Allergies Allergies/Adverse Reactions: Allergies Allergy/AdvReac Type Severity Reaction Status Date / Time ciprofloxacin [From Cipro] Allergy Edema Verified 03/02/22 16:33 sulfamethoxazole Allergy Anaphylaxis Verified 03/02/22 16:33 [From Bactrim] trimethoprim [From Bactrim] Allergy Anaphylaxis Verified 03/02/22 16:33 - Social History Does the pt smoke?: No Smoking Status: Never smoker Does the pt drink ETOH?: Yes Does the pt have substance abuse?: No - Immunizations Immunizations are current?: Yes - POLST Patient has POLST: No PD ED PE NORMAL - Vitals Vital signs reviewed: Yes - General General: Alert and oriented X 3, No acute distress - HEENT HEENT: Moist mucous membranes - Neck Neck: Supple, no meningeal sign - Cardiac Cardiac: RRR - Respiratory Respiratory: No respiratory distress, Clear bilaterally - Abdomen Abdomen: Soft, Non distended, Other (Mild diffuse tenderness to palpation without peritoneal signs.) - Female Female : Pt declined - Derm Derm: Warm and dry - Neuro Neuro: Alert and oriented X 3 Results - Vitals Vitals: Vital Signs - 24 hr 03/02/22 16:33 Temperature 36.5 C Heart Rate 72 Respiratory 16 Rate Blood Pressure 130/81 H O2 Saturation 99 Oxygen O2 Source Room air - Labs Labs: Laboratory Tests 03/02/22 03/02/22 03/02/22 16:45 16:57 16:57 WBC 5.2 RBC 4.09 L Hgb 11.8 L Hct 37.0 MCV 90.5 MCH 28.9 MCHC 31.9 L RDW 13.4 Plt Count 267 MPV 9.8 Neut # (Auto) 3.4 Lymph # (Auto) 1.4 L Winston # (Auto) 0.3 Eos # (Auto) 0.0 Baso # (Auto) 0.0 Absolute Nucleated RBC 0.00 Nucleated RBC % 0.0 Sodium 136 Potassium 3.7 Chloride 101 Carbon Dioxide 23 Anion Gap 12.0 BUN 8 Creatinine 0.8 Estimated GFR (MDRD) 104 Glucose 89 Calcium 9.2 Total Bilirubin 0.6 AST 22 ALT 15 Alkaline Phosphatase 65 Total Protein 8.4 H Albumin 4.4 Globulin 4.0 Albumin/Globulin Ratio 1.1 Lipase 39 Urine Color YELLOW Urine Clarity SL. CLOUDY Urine pH 7.0 Ur Specific Riesel <=1.005 Urine Protein NEGATIVE Urine Glucose (UA) NEGATIVE Urine Ketones 15 H Urine Occult Blood LARGE H Urine Nitrite NEGATIVE Urine Bilirubin NEGATIVE Urine Urobilinogen 0.2 (NORMAL) Ur Leukocyte Esterase NEGATIVE Urine RBC TNTC H Urine WBC 0-3 Ur Squamous Epith Cells MANY Squamous H Urine Bacteria Few Ur Microscopic Review INDICATED Urine Culture Comments NOT INDICATED Urine HCG, Qual NEGATIVE C. glabrata (PCR) C. krusei (PCR) Loraine species DNA T. vaginalis (PCR) Bact Vaginosis (PCR) 03/02/22 17:44 WBC RBC Hgb Hct MCV MCH MCHC RDW Plt Count MPV Neut # (Auto) Lymph # (Auto) Winston # (Auto) Eos # (Auto) Baso # (Auto) Absolute Nucleated RBC Nucleated RBC % Sodium Potassium Chloride Carbon Dioxide Anion Gap BUN Creatinine Estimated GFR (MDRD) Glucose Calcium Total Bilirubin AST ALT Alkaline Phosphatase Total Protein Albumin Globulin Albumin/Globulin Ratio Lipase Urine Color Urine Clarity Urine pH Ur Specific R[place] Urine Protein Urine Glucose (UA) Urine Ketones Urine Occult Blood Urine Nitrite Urine Bilirubin Urine Urobilinogen Ur Leukocyte Esterase Urine RBC Urine WBC Ur Squamous Epith Cells Urine Bacteria Ur Microscopic Review Urine Culture Comments Urine HCG, Qual C. glabrata (PCR) POSITIVE A C. krusei (PCR) NEGATIVE Loraine species DNA NEGATIVE T. vaginalis (PCR) NEGATIVE Bact Vaginosis (PCR) NEGATIVE PD MEDICAL DECISION MAKING - ED course Complexity details: reviewed results, re-evaluated patient, considered differential, d/w patient ED course: Patient with continued dysuria, her urinalysis appears contaminated. She declines a pelvic examination, but did agree to self swab for gonorrhea, chlamydia and bacterial vaginitis/bacterial vaginosis. We will call her with the results. Her vaginal swab is positive for Loraine glabrata, at this species has a low vaginal virulence, therefore we will await the remainder of her swabs before determining treatment. This document was made in part using voice recognition software. While efforts are made to proofread this document, sound alike and grammatical errors may occur. Departure - Departure Disposition: 01 Home, Self Care Clinical Impression: Abdominal pain Qualifiers: Abdominal location: unspecified location Qualified Code(s): R10.9 - Unspecified abdominal pain Condition: Good Instructions: ED Abdominal Pain Female Non-Specific Abdominal Pain Follow-Up: CLEO DICK MD [Primary Care Provider] - Within 3 Days Comments: We will follow-up with you regarding the results of your testing when the resul ts are back. If any prescriptions are needed, I will send them to [facility] in [place]. Most of your testing should be back tonight, but may not be back until tomorrow. Discharge Date/Time: 03/02/22 17:54
[2022-03-02 19:49] LABS: BACTERIAL VAGINOSIS DNA NEGATIVE (NEGATIVE); CANDIDA GLABRATA DNA POSITIVE (NEGATIVE); CANDIDA GROUP DNA NEGATIVE (NEGATIVE); CANDIDA KRUSEI DNA NEGATIVE (NEGATIVE); TRICHOMONAS VAGINALIS DNA NEGATIVE (NEGATIVE)
[2022-03-02 23:00] LABS: CHLAMYDIA TRACHOMATIS DNA NEGATIVE (NEGATIVE); NEISSERIA GONORRHOEAE DNA NEGATIVE (NEGATIVE)
== END 2022-03-02 17:54 | disposition home or self-care (01) ==
LOC: ED 16:20
DX: R10.9 Unspecified abdominal pain (principal); B37.3 Candidiasis of vulva and vagina
CPT/HCPCS: 36415; 80053; 81001; 81003; 81025; 81514; 83690; 85025; 87086; 87491; 87591; 87661; 99282; 99283

== ENCOUNTER 2022-03-22 08:00 | Outpatient (CLI) | payer OTHER ==
[2022-03-22 22:16] LABS: BACTERIAL VAGINOSIS DNA NEGATIVE (NEGATIVE); CANDIDA GLABRATA DNA POSITIVE (NEGATIVE); CANDIDA GROUP DNA NEGATIVE (NEGATIVE); CANDIDA KRUSEI DNA NEGATIVE (NEGATIVE); TRICHOMONAS VAGINALIS DNA NEGATIVE (NEGATIVE)
[2022-03-22 23:18] LABS: CHLAMYDIA TRACHOMATIS DNA NEGATIVE (NEGATIVE); NEISSERIA GONORRHOEAE DNA NEGATIVE (NEGATIVE)
== END 2022-03-23 21:31 | disposition home or self-care (01) ==
LOC: LAB.N 08:00
PROVIDERS: ATTEND Nurse Practitioner
DX: N39.0 Urinary tract infection, site not specified (principal); N89.8 Other specified noninflammatory disorders of vagina
CPT/HCPCS: 81514; 87077; 87086; 87181; 87491; 87591; 87661

== ENCOUNTER 2022-05-11 14:40 | Emergency (ER) | payer OTHER ==
[2022-05-11 14:49] VITALS: BP 108/63
--- OUTSIDE RECORDS SUMMARY | 2022-05-11 15:27 | EXTERNAL MEDICAL SUMMARY RPT | Continuity of Care Document ---
:1995 Author Organization [place] Address [address] [place] [address] Phone Allergies No information. Encounters No information. Functional Status No information. Immunizations No information. Medications date description facility [id number] ondansetron hcl All [id number]+0000 phenazopyridine All [id number]+0000 cefdinir 300 MG Oral Capsule [facility]ital [id number]+0000 Amoxicillin 500 MG Oral Capsule [facility] [id number]+0000 nitrofurantoin monohyd/m-cryst All [id number]+0000 nitrofurantoin monohyd/m-cryst All [id number]+0000 phenazopyridine All [id number]+0000 Tamsulosin hydrochloride 0.4 MG Oral C [facility] Problems No information. Procedures date description facility [id number]+0000 [facility] [id number]+0000 [facility] [id number]+0000 [facility] [id number]+0000 POC URINALYSIS DIP All [id number]+0000 POC HCG All Results/Labs test date author facility value unit interpret ation Result panel 1 (unknown) (no (unknown) (unknown) (no value) (units (unk nown) date) unknown) (unknown) (no (unknown) (unknown) (no value) (units (unk nown) date) unknown) (unknown) (no (unknown) (unknown) [place] (units ( unknown) date) [id number] unknown) (unknown) (no (unknown) (unknown) [place] (units (unkno wn) date) unknown) (unknown) (no (unknown) (unknown) [facility] (units (unknown) date) unknown) (unknown) (no (unknown) (unknown) Urology Office (units (unknown) date) Visit unknown) (unknown) (no (unknown) (unknown) (no value) (units (unk nown) date) unknown) (unknown) (no (unknown) (unknown) 02/13/22 (units (unkno wn) date) unknown) (unknown) (no (unknown) (unknown) 26 y/o F presents (units (unknown) date) to clinic as a unknown) New Patient. Acute cystitis without hematuria. (unknown) (no (unknown) (unknown) [id number] (units (unkno wn) date) unknown) (unknown) (no (unknown) (unknown) Age/Sex: 26 / F (units (unknown) date) Date of unknown) Service: (unknown) (no (unknown) (unknown) Attending Dr: (units ( unknown) date) Sudeep Pelaez MD unknown) (unknown) (no (unknown) (unknown) : 1995 (units (unknown) date) Acct:[id number] unknown) (unknown) (no (unknown) (unknown) Dept at (units (unkno wn) date) . unknown) (unknown) (no (unknown) (unknown) Documented By: (units (unknown) date) Sudeep Pelaez MD unknown) 02/13/22 1411 (unknown) (no (unknown) (unknown) Intake (units (unkno wn) date) unknown) (unknown) (no (unknown) (unknown) Intake Note: (units (u nknown) date) unknown) (unknown) (no (unknown) (unknown) Loc: [facility] (units (unkno wn) date) unknown) (unknown) (no (unknown) (unknown) Patient: (units (unkno wn) date) Fariba Hernandez unknown) MR#: [id number] (unknown) (no (unknown) (unknown) Reason For Visit (units (unknown) date) unknown) (unknown) (no (unknown) (unknown) Signed By: (units (unk nown) date) unknown) (unknown) (no (unknown) (unknown) This note may (units ( unknown) date) have been all or unknown) partially generated using voice recognition (unknown) (no (unknown) (unknown) Visit Reasons: (units (unknown) date) TITLE EXAMINER-Acute cystitis unknown) w/o hematuria/ppwk (unknown) (no (unknown) (unknown) have occurred. (units (unknown) date) If there are any unknown) questions, please contact the Medical Records (unknown) (no (unknown) (unknown) may occur. (units (unk nown) date) Occasional unknown) wrong-word or 'sound-alike' substitutions may have (unknown) (no (unknown) (unknown) occurred due to (units (unknown) date) the inherent unknown) limitations of voice recognition software. Please (unknown) (no (unknown) (unknown) read the note (units ( unknown) date) carefully and unknown) recognize, using context, where these substitutions (unknown) (no (unknown) (unknown) software. (units (unkn own) date) Although every unknown) effort is made to edit content, livestock farm workers errors Result panel 2 (unknown) (no (unknown) (unknown) (no value) (units (unk nown) date) unknown) (unknown) (no (unknown) (unknown) Orders: (units (unkno wn) date) unknown) (unknown) (no (unknown) (unknown) (no value) (units (unk nown) date) unknown) (unknown) (no (unknown) (unknown) [place] (units ( unknown) date) [id number] unknown) (unknown) (no (unknown) (unknown) [place] (units (unkno wn) date) unknown) (unknown) (no (unknown) (unknown) [facility] (units (unknown) date) unknown) (unknown) (no (unknown) (unknown) Kidney stones (units ( unknown) date) unknown) (unknown) (no (unknown) (unknown) UTI (urinary (units (u nknown) date) tract infection), unknown) uncomplicated (unknown) (no (unknown) (unknown) Urology Office (units (unknown) date) Visit unknown) (unknown) (no (unknown) (unknown) (no value) (units (unk nown) date) unknown) (unknown) (no (unknown) (unknown) 02/13/22 (units (unkno wn) date) unknown) (unknown) (no (unknown) (unknown) 26 y/o F presents (units (unknown) date) to clinic as a unknown) New Patient. Acute cystitis without hematuria. (unknown) (no (unknown) (unknown) [id number] (units (unkno wn) date) unknown) (unknown) (no (unknown) (unknown) Age/Sex: 26 / F (units (unknown) date) Date of unknown) Service: (unknown) (no (unknown) (unknown) Anemia (units (unkno wn) date) unknown) (unknown) (no (unknown) (unknown) Assessment + (units (u nknown) date) Plan unknown) (unknown) (no (unknown) (unknown) Attending Dr: (units ( unknown) date) Sudeep Pelaez MD unknown) (unknown) (no (unknown) (unknown) Billing- Post (units ( unknown) date) Void Residual: unknown) Post Void Residual- 15441 (unknown) (no (unknown) (unknown) Bladder volume: (units (unknown) date) PVR = unknown) (unknown) (no (unknown) (unknown) Chronic UTI (units (un known) date) unknown) (unknown) (no (unknown) (unknown) : 1995 (units (unknown) date) Acct:[id number] unknown) (unknown) (no (unknown) (unknown) Dept at (units (unkno wn) date) . unknown) (unknown) (no (unknown) (unknown) Documented By: (units (unknown) date) Sudeep Pelaez MD unknown) 02/13/22 1411 (unknown) (no (unknown) (unknown) Family History (units (unknown) date) (Updated 02/13/22 unknown) @ 14:14 by Wendy Davenport RN) (unknown) (no (unknown) (unknown) Family/Other (units (u nknown) date) Hypertension unknown) (unknown) (no (unknown) (unknown) Father Hx of (units (unknown) date) migraines unknown) (unknown) (no (unknown) (unknown) Grandmother (units (un known) date) Hypertension unknown) (unknown) (no (unknown) (unknown) Hx of migraines (units (unknown) date) unknown) (unknown) (no (unknown) (unknown) Intake (units (unkno wn) date) unknown) (unknown) (no (unknown) (unknown) Intake Note: (units (u nknown) date) unknown) (unknown) (no (unknown) (unknown) Loc: [facility] (units (unkno wn) date) unknown) (unknown) (no (unknown) (unknown) Medical History (units (unknown) date) (Updated 02/13/22 unknown) @ 14:13 by Wendy Davenport RN) (unknown) (no (unknown) (unknown) Mother (units (unkno wn) date) Hypertension unknown) (unknown) (no (unknown) (unknown) Office (units (unkno wn) date) Procedures unknown) (unknown) (no (unknown) (unknown) Orders (units (unkno wn) date) unknown) (unknown) (no (unknown) (unknown) PFSH (units (unkno wn) date) unknown) (unknown) (no (unknown) (unknown) POC Urine Dip (units ( unknown) date) Today R30.0 - unknown) Dysuria (unknown) (no (unknown) (unknown) Patient: (units (unkno wn) date) Fariba Hernandez unknown) MR#: [id number] (unknown) (no (unknown) (unknown) Reason For Visit (units (unknown) date) unknown) (unknown) (no (unknown) (unknown) Residual: post (units (unknown) date) void unknown) (unknown) (no (unknown) (unknown) Signed By: (units (unk nown) date) unknown) (unknown) (no (unknown) (unknown) Social History (units (unknown) date) (Updated 02/13/22 unknown) @ 14:15 by Wendy Davenport RN) (unknown) (no (unknown) (unknown) This note may (units ( unknown) date) have been all or unknown) partially generated using voice recognition (unknown) (no (unknown) (unknown) Type(s) of (units (unk nown) date) exercise: none unknown) (unknown) (no (unknown) (unknown) Visit Reasons: (units (unknown) date) TITLE EXAMINER-Acute cystitis unknown) w/o hematuria/ppwk (unknown) (no (unknown) (unknown) have occurred. (units (unknown) date) If there are any unknown) questions, please contact the Medical Records (unknown) (no (unknown) (unknown) marital status: (units (unknown) date) unmarried,single unknown) (unknown) (no (unknown) (unknown) may occur. (units (unk nown) date) Occasional unknown) wrong-word or 'sound-alike' substitutions may have (unknown) (no (unknown) (unknown) occurred due to (units (unknown) date) the inherent unknown) limitations of voice recognition software. Please (unknown) (no (unknown) (unknown) read the note (units ( unknown) date) carefully and unknown) recognize, using context, where these substitutions (unknown) (no (unknown) (unknown) software. (units (unkn own) date) Although every unknown) effort is made to edit content, livestock farm workers errors Result panel 3 (unknown) (no (unknown) (unknown) (no value) (units (unk nown) date) unknown) (unknown) (no (unknown) (unknown) Orders: (units (unkno wn) date) unknown) (unknown) (no (unknown) (unknown) (no value) (units (unk nown) date) unknown) (unknown) (no (unknown) (unknown) 02/13/22 (units (unkno wn) date) unknown) (unknown) (no (unknown) (unknown) 14:24 (units (unkno wn) date) unknown) (unknown) (no (unknown) (unknown) [place] (units ( unknown) date) [id number] unknown) (unknown) (no (unknown) (unknown) [facility] (units (unkno wn) date) unknown) (unknown) (no (unknown) (unknown) [facility] (units (unknown) date) unknown) (unknown) (no (unknown) (unknown) Kidney stones (units ( unknown) date) unknown) (unknown) (no (unknown) (unknown) UTI (urinary (units (u nknown) date) tract infection), unknown) uncomplicated (unknown) (no (unknown) (unknown) Urology Office (units (unknown) date) Visit unknown) (unknown) (no (unknown) (unknown) (no value) (units (unk nown) date) unknown) (unknown) (no (unknown) (unknown) 02/13/22 (units (unkno wn) date) unknown) (unknown) (no (unknown) (unknown) 26 y/o F presents (units (unknown) date) to clinic as a unknown) New Patient. Acute cystitis without hematuria. (unknown) (no (unknown) (unknown) [id number] (units (unkno wn) date) unknown) (unknown) (no (unknown) (unknown) Age/Sex: 26 / F (units (unknown) date) Date of unknown) Service: (unknown) (no (unknown) (unknown) Anemia (units (unkno wn) date) unknown) (unknown) (no (unknown) (unknown) Assessment + (units (u nknown) date) Plan unknown) (unknown) (no (unknown) (unknown) Attending Dr: (units ( unknown) date) Sudeep Pelaez MD unknown) (unknown) (no (unknown) (unknown) BMI 22.4 (units (un known) date) unknown) (unknown) (no (unknown) (unknown) BP 102/70 (units (u nknown) date) unknown) (unknown) (no (unknown) (unknown) Billing- Post (units ( unknown) date) Void Residual: unknown) Post Void Residual- 54805 (unknown) (no (unknown) (unknown) Bladder volume: (units (unknown) date) PVR = 91ml unknown) (unknown) (no (unknown) (unknown) Blood Pressure (units (unknown) date) Location Lt unknown) brachial (unknown) (no (unknown) (unknown) Chronic UTI (units (un known) date) unknown) (unknown) (no (unknown) (unknown) : 1995 (units (unknown) date) Acct:[id number] unknown) (unknown) (no (unknown) (unknown) Dept at (units (unkno wn) date) . unknown) (unknown) (no (unknown) (unknown) Documented By: (units (unknown) date) Sudeep Pelaez MD unknown) 02/13/22 1411 (unknown) (no (unknown) (unknown) Family History (units (unknown) date) (Updated 02/13/22 unknown) @ 14:14 by Wendy Davenport RN) (unknown) (no (unknown) (unknown) Family/Other (units (u nknown) date) Hypertension unknown) (unknown) (no (unknown) (unknown) Father Hx of (units (unknown) date) migraines unknown) (unknown) (no (unknown) (unknown) Grandmother (units (un known) date) Hypertension unknown) (unknown) (no (unknown) (unknown) Height 4 ft (units (unknown) date) 11 in unknown) (unknown) (no (unknown) (unknown) Hx of migraines (units (unknown) date) unknown) (unknown) (no (unknown) (unknown) Intake (units (unkno wn) date) unknown) (unknown) (no (unknown) (unknown) Intake Note: (units (u nknown) date) unknown) (unknown) (no (unknown) (unknown) Loc: [facility] (units (unkno wn) date) unknown) (unknown) (no (unknown) (unknown) Medical History (units (unknown) date) (Updated 02/13/22 unknown) @ 14:13 by Wendy Davenport RN) (unknown) (no (unknown) (unknown) Mother (units (unkno wn) date) Hypertension unknown) (unknown) (no (unknown) (unknown) Office (units (unkno wn) date) Procedures unknown) (unknown) (no (unknown) (unknown) Orders (units (unkno wn) date) unknown) (unknown) (no (unknown) (unknown) Oxygen Delivery (units (unknown) date) Method room unknown) air (unknown) (no (unknown) (unknown) PFSH (units (unkno wn) date) unknown) (unknown) (no (unknown) (unknown) POC Urine Dip (units ( unknown) date) Today R30.0 - unknown) Dysuria (unknown) (no (unknown) (unknown) Patient: (units (unkno wn) date) Fariba Hernandez unknown) MR#: [id number] (unknown) (no (unknown) (unknown) Position (units (unkno wn) date) Sitting unknown) (unknown) (no (unknown) (unknown) Pulse 72 (units (un known) date) unknown) (unknown) (no (unknown) (unknown) Pulse Oximetry (units (unknown) date) (%) 100 unknown) (unknown) (no (unknown) (unknown) Pulse Source (units (u nknown) date) Monitor unknown) (unknown) (no (unknown) (unknown) Reason For Visit (units (unknown) date) unknown) (unknown) (no (unknown) (unknown) Residual: post (units (unknown) date) void unknown) (unknown) (no (unknown) (unknown) Respiration (units (un known) date) 16 unknown) (unknown) (no (unknown) (unknown) Signed By: (units (unk nown) date) unknown) (unknown) (no (unknown) (unknown) Social History (units (unknown) date) (Updated 02/13/22 unknown) @ 14:15 by Wendy Davenport RN) (unknown) (no (unknown) (unknown) This note may (units ( unknown) date) have been all or unknown) partially generated using voice recognition (unknown) (no (unknown) (unknown) Type(s) of (units (unk nown) date) exercise: none unknown) (unknown) (no (unknown) (unknown) Urine Culture (units ( unknown) date) Today R30.0 - unknown) Dysuria (unknown) (no (unknown) (unknown) Visit Reasons: (units (unknown) date) TITLE EXAMINER-Acute cystitis unknown) w/o hematuria/ppwk (unknown) (no (unknown) (unknown) Vitals (units (unkno wn) date) unknown) (unknown) (no (unknown) (unknown) Weight 111 lb (units (unknown) date) unknown) (unknown) (no (unknown) (unknown) have occurred. (units (unknown) date) If there are any unknown) questions, please contact the Medical Records (unknown) (no (unknown) (unknown) marital status: (units (unknown) date) unmarried,single unknown) (unknown) (no (unknown) (unknown) may occur. (units (unk nown) date) Occasional unknown) wrong-word or 'sound-alike' substitutions may have (unknown) (no (unknown) (unknown) occurred due to (units (unknown) date) the inherent unknown) limitations of voice recognition software. Please (unknown) (no (unknown) (unknown) read the note (units ( unknown) date) carefully and unknown) recognize, using context, where these substitutions (unknown) (no (unknown) (unknown) software. (units (unkn own) date) Although every unknown) effort is made to edit content, livestock farm workers errors Result panel 4 (unknown) (no (unknown) (unknown) (no value) (units (unk nown) date) unknown) (unknown) (no (unknown) (unknown) Orders: (units (unkno wn) date) unknown) (unknown) (no (unknown) (unknown) (no value) (units (unk nown) date) unknown) (unknown) (no (unknown) (unknown) 02/13/22 (units (unkno wn) date) unknown) (unknown) (no (unknown) (unknown) 14:24 (units (unkno wn) date) unknown) (unknown) (no (unknown) (unknown) [place], [place] (units ( unknown) date) [id number] unknown) (unknown) (no (unknown) (unknown) [facility] (units (unkno wn) date) unknown) (unknown) (no (unknown) (unknown) [facility] (units (unknown) date) unknown) (unknown) (no (unknown) (unknown) Kidney stones (units ( unknown) date) unknown) (unknown) (no (unknown) (unknown) UTI (urinary (units (u nknown) date) tract infection), unknown) uncomplicated (unknown) (no (unknown) (unknown) Urology Office (units (unknown) date) Visit unknown) (unknown) (no (unknown) (unknown) (no value) (units (unk nown) date) unknown) (unknown) (no (unknown) (unknown) Urine Appearance (units (unknown) date) Clear Last unknown) Edit by Wendy Davenport RN on 02/13/22 14:29 (unknown) (no (unknown) (unknown) Urine Bilirubin (units (unknown) date) Negative Last unknown) Edit by Wendy Davenport RN on 02/13/22 14:29 (unknown) (no (unknown) (unknown) Urine Blood 2+ (units (unknown) date) 80 Anthony/uL unknown) Last Edit by Wendy Davenport RN on 02/13/22 14:29 (unknown) (no (unknown) (unknown) Urine Color (units (un known) date) Yellow Last unknown) Edit by Wendy Davenport RN on 02/13/22 14:29 (unknown) (no (unknown) (unknown) Urine Glucose (units ( unknown) date) Negative mg/dL unknown) Last Edit by Wendy Davenport RN on 02/13/22 14: (unknown) (no (unknown) (unknown) Urine Ketones (units ( unknown) date) Negative Last unknown) Edit by Wendy Davenport RN on 02/13/22 14:29 (unknown) (no (unknown) (unknown) Urine Leukocyte (units (unknown) date) Esterase 3+ 500 unknown) Anmol/uL Last Edit by Wendy Davenport RN on (unknown) (no (unknown) (unknown) Urine Nitrate (units ( unknown) date) Negative Last unknown) Edit by Wendy Davenport RN on 02/13/22 14:29 (unknown) (no (unknown) (unknown) Urine Protein +- (units (unknown) date) 15 mg/dL Last unknown) Edit by Wendy Davenport RN on 02/13/22 14:29 (unknown) (no (unknown) (unknown) Urine Specific (units (unknown) date) [place] 1.015 unknown) Last Edit by Wendy Davenport RN on 02/13/22 14 (unknown) (no (unknown) (unknown) Urine (units (unkno wn) date) Urobilinogen - unknown) 0.2 mg/dL Last Edit by Wendy Davenport RN on (unknown) (no (unknown) (unknown) Urine pH 6.0 (units (unknown) date) Last Edit by unknown) Wendy Davenport RN on 02/13/22 14:29 (unknown) (no (unknown) (unknown) 02/13/22 (units (unkno wn) date) unknown) (unknown) (no (unknown) (unknown) 02/13/22 14:29 (units (unknown) date) unknown) (unknown) (no (unknown) (unknown) 14:29 (units (unkno wn) date) unknown) (unknown) (no (unknown) (unknown) 2 (units (unkno wn) date) unknown) (unknown) (no (unknown) (unknown) 26 y/o F presents (units (unknown) date) to clinic as a unknown) New Patient. Acute cystitis without hematuria. (unknown) (no (unknown) (unknown) 29 (units (unkno wn) date) unknown) (unknown) (no (unknown) (unknown) [id number] (units (unkno wn) date) unknown) (unknown) (no (unknown) (unknown) :29 (units (unkno wn) date) unknown) (unknown) (no (unknown) (unknown) Age/Sex: 26 / F (units (unknown) date) Date of unknown) Service: (unknown) (no (unknown) (unknown) Anemia (units (unkno wn) date) unknown) (unknown) (no (unknown) (unknown) Assessment + (units (u nknown) date) Plan unknown) (unknown) (no (unknown) (unknown) Attending Dr: (units ( unknown) date) Sudeep Pelaez MD unknown) (unknown) (no (unknown) (unknown) BMI 22.4 (units (un known) date) unknown) (unknown) (no (unknown) (unknown) BP 102/70 (units (u nknown) date) unknown) (unknown) (no (unknown) (unknown) Billing- Post (units ( unknown) date) Void Residual: unknown) Post Void Residual- 96471 (unknown) (no (unknown) (unknown) Bladder volume: (units (unknown) date) PVR = 91ml unknown) (unknown) (no (unknown) (unknown) Blood Pressure (units (unknown) date) Location Lt unknown) brachial (unknown) (no (unknown) (unknown) Chronic UTI (units (un known) date) unknown) (unknown) (no (unknown) (unknown) : 1995 (units (unknown) date) Acct:[id number] unknown) (unknown) (no (unknown) (unknown) Dept at (units (unkno wn) date) . unknown) (unknown) (no (unknown) (unknown) Documented By: (units (unknown) date) Sudeep Pelaez MD unknown) 02/13/22 1411 (unknown) (no (unknown) (unknown) Family History (units (unknown) date) (Updated 02/13/22 unknown) @ 14:14 by Wendyjoy Davenport RN) (unknown) (no (unknown) (unknown) Family/Other (units (u nknown) date) Hypertension unknown) (unknown) (no (unknown) (unknown) Father Hx of (units (unknown) date) migraines unknown) (unknown) (no (unknown) (unknown) Grandmother (units (un known) date) Hypertension unknown) (unknown) (no (unknown) (unknown) Height 4 ft (units (unknown) date) 11 in unknown) (unknown) (no (unknown) (unknown) Hx of migraines (units (unknown) date) unknown) (unknown) (no (unknown) (unknown) Intake (units (unkno wn) date) unknown) (unknown) (no (unknown) (unknown) Intake Note: (units (u nknown) date) unknown) (unknown) (no (unknown) (unknown) Loc: [facility] (units (unkno wn) date) unknown) (unknown) (no (unknown) (unknown) Medical History (units (unknown) date) (Updated 02/13/22 unknown) @ 14:13 by Wendy Davenport RN) (unknown) (no (unknown) (unknown) Mother (units (unkno wn) date) Hypertension unknown) (unknown) (no (unknown) (unknown) Office (units (unkno wn) date) Procedures unknown) (unknown) (no (unknown) (unknown) Orders (units (unkno wn) date) unknown) (unknown) (no (unknown) (unknown) Oxygen Delivery (units (unknown) date) Method room unknown) air (unknown) (no (unknown) (unknown) PFSH (units (unkno wn) date) unknown) (unknown) (no (unknown) (unknown) POC Urine Dip (units ( unknown) date) Today R30.0 - unknown) Dysuria (unknown) (no (unknown) (unknown) Patient: (units (unkno wn) date) Fariba Hernandez unknown) MR#: [id number] (unknown) (no (unknown) (unknown) Position (units (unkno wn) date) Sitting unknown) (unknown) (no (unknown) (unknown) Pulse 72 (units (un known) date) unknown) (unknown) (no (unknown) (unknown) Pulse Oximetry (units (unknown) date) (%) 100 unknown) (unknown) (no (unknown) (unknown) Pulse Source (units (u nknown) date) Monitor unknown) (unknown) (no (unknown) (unknown) Reason For Visit (units (unknown) date) unknown) (unknown) (no (unknown) (unknown) Residual: post (units (unknown) date) void unknown) (unknown) (no (unknown) (unknown) Respiration (units (un known) date) 16 unknown) (unknown) (no (unknown) (unknown) Results (units (unkno wn) date) unknown) (unknown) (no (unknown) (unknown) Signed By: (units (unk nown) date) unknown) (unknown) (no (unknown) (unknown) Social History (units (unknown) date) (Updated 02/13/22 unknown) @ 14:15 by Wendy Davenport RN) (unknown) (no (unknown) (unknown) This note may (units ( unknown) date) have been all or unknown) partially generated using voice recognition (unknown) (no (unknown) (unknown) Type(s) of (units (unk nown) date) exercise: none unknown) (unknown) (no (unknown) (unknown) Urine Culture (units ( unknown) date) Today R30.0 - unknown) Dysuria (unknown) (no (unknown) (unknown) Urine Dipstick (units (unknown) date) unknown) (unknown) (no (unknown) (unknown) Visit Reasons: (units (unknown) date) TITLE EXAMINER-Acute cystitis unknown) w/o hematuria/ppwk (unknown) (no (unknown) (unknown) Vitals (units (unkno wn) date) unknown) (unknown) (no (unknown) (unknown) Weight 111 lb (units (unknown) date) unknown) (unknown) (no (unknown) (unknown) have occurred. (units (unknown) date) If there are any unknown) questions, please contact the Medical Records (unknown) (no (unknown) (unknown) marital status: (units (unknown) date) unmarried,single unknown) (unknown) (no (unknown) (unknown) may occur. (units (unk nown) date) Occasional unknown) wrong-word or 'sound-alike' substitutions may have (unknown) (no (unknown) (unknown) occurred due to (units (unknown) date) the inherent unknown) limitations of voice recognition software. Please (unknown) (no (unknown) (unknown) read the note (units ( unknown) date) carefully and unknown) recognize, using context, where these substitutions (unknown) (no (unknown) (unknown) software. (units (unkn own) date) Although every unknown) effort is made to edit content, livestock farm workers errors Result panel 5 (unknown) (no (unknown) (unknown) >100,000 CFU/ml (unkno wn) date) (unknown) (no (unknown) (unknown) GenericComposite[ (units (unknown) date) GNB^Gram negative unknown) bacilli] (unknown) (no (unknown) (unknown) Identification (units (unknown) date) and Sensitivity to unknown) Follow Result panel 6 (unknown) (no (unknown) (unknown) (no value) (units (unk nown) date) unknown) (unknown) (no (unknown) (unknown) Code(s): (units (unkno wn) date) unknown) (unknown) (no (unknown) (unknown) Orders: (units (unkno wn) date) unknown) (unknown) (no (unknown) (unknown) Status: Acute (units ( unknown) date) unknown) (unknown) (no (unknown) (unknown) (no value) (units (unk nown) date) unknown) (unknown) (no (unknown) (unknown) 02/13/22 (units (unkno wn) date) unknown) (unknown) (no (unknown) (unknown) 02/14/22 1228 (units ( unknown) date) unknown) (unknown) (no (unknown) (unknown) 14:24 (units (unkno wn) date) unknown) (unknown) (no (unknown) (unknown) KATTY Walton (units ( unknown) date) [id number] unknown) (unknown) (no (unknown) (unknown) [facility] (units (unknown) date) unknown) (unknown) (no (unknown) (unknown) Kidney stones (units ( unknown) date) unknown) (unknown) (no (unknown) (unknown) Signed (units (unkno wn) date) unknown) (unknown) (no (unknown) (unknown) UTI (urinary (units (u nknown) date) tract infection), unknown) uncomplicated (unknown) (no (unknown) (unknown) Urology Office (units (unknown) date) Visit unknown) (unknown) (no (unknown) (unknown) (no value) (units (unk nown) date) unknown) (unknown) (no (unknown) (unknown) Urine Appearance (units (unknown) date) Clear Last unknown) Edit by Wendy Davenport RN on 02/13/22 14:29 (unknown) (no (unknown) (unknown) Urine Bilirubin (units (unknown) date) Negative Last unknown) Edit by Wendy Davenport RN on 02/13/22 14:29 (unknown) (no (unknown) (unknown) Urine Blood 2+ (units (unknown) date) 80 Anthony/uL unknown) Last Edit by Wendy Davenport RN on 02/13/22 14:29 (unknown) (no (unknown) (unknown) Urine Color (units (un known) date) Yellow Last unknown) Edit by Wendy Davenport RN on 02/13/22 14:29 (unknown) (no (unknown) (unknown) Urine Glucose (units ( unknown) date) Negative mg/dL unknown) Last Edit by Wendy Davenport RN on 02/13/22 14: (unknown) (no (unknown) (unknown) Urine Ketones (units ( unknown) date) Negative Last unknown) Edit by Wendy Davenport RN on 02/13/22 14:29 (unknown) (no (unknown) (unknown) Urine Leukocyte (units (unknown) date) Esterase 3+ 500 unknown) Anmol/uL Last Edit by Wendy Davenport RN on (unknown) (no (unknown) (unknown) Urine Nitrate (units ( unknown) date) Negative Last unknown) Edit by Wendy Davenport RN on 02/13/22 14:29 (unknown) (no (unknown) (unknown) Urine Protein +- (units (unknown) date) 15 mg/dL Last unknown) Edit by Wendy Davenport RN on 02/13/22 14:29 (unknown) (no (unknown) (unknown) Urine Specific (units (unknown) date) [place] 1.015 unknown) Last Edit by Wendy Davenport RN on 02/13/22 14 (unknown) (no (unknown) (unknown) Urine (units (unkno wn) date) Urobilinogen - unknown) 0.2 mg/dL Last Edit by Wendy Davenport RN on (unknown) (no (unknown) (unknown) Urine pH 6.0 (units (unknown) date) Last Edit by unknown) Wendy Davenport RN on 02/13/22 14:29 (unknown) (no (unknown) (unknown) (1) Recurrent (units ( unknown) date) urinary tract unknown) infection: (unknown) (no (unknown) (unknown) 02/13/22 (units (unkno wn) date) unknown) (unknown) (no (unknown) (unknown) 02/13/22 14:29 (units (unknown) date) unknown) (unknown) (no (unknown) (unknown) 14:29 (units (unkno wn) date) unknown) (unknown) (no (unknown) (unknown) 2 (units (unkno wn) date) unknown) (unknown) (no (unknown) (unknown) 26 y/o F presents (units (unknown) date) to clinic as a unknown) New Patient. Acute cystitis without hematuria. (unknown) (no (unknown) (unknown) 29 (units (unkno wn) date) unknown) (unknown) (no (unknown) (unknown) [id number] (units (unkno wn) date) unknown) (unknown) (no (unknown) (unknown) :29 (units (unkno wn) date) unknown) (unknown) (no (unknown) (unknown) Abdominal exam: (units (unknown) date) Soft, nontender, unknown) without palpable mass or hepatosplenomegal y, (unknown) (no (unknown) (unknown) Acute cystitis (units (unknown) date) without unknown) hematuria, antibiotic allergies (unknown) (no (unknown) (unknown) Add'l Complaint: (units (unknown) date) unknown) (unknown) (no (unknown) (unknown) Age/Sex: 26 / F (units (unknown) date) Date of unknown) Service: (unknown) (no (unknown) (unknown) All systems (units (un known) date) reviewed + are unknown) unremarkable except as noted in HPI and below (And (unknown) (no (unknown) (unknown) Anemia (units (unkno wn) date) unknown) (unknown) (no (unknown) (unknown) Assessment + (units (u nknown) date) Plan unknown) (unknown) (no (unknown) (unknown) Assessment and (units (unknown) date) plan: Recurring unknown) urinary tract infections. Urine currently (unknown) (no (unknown) (unknown) Attending Dr: (units ( unknown) date) Sudeep Pelaez MD unknown) (unknown) (no (unknown) (unknown) BMI 22.4 (units (un known) date) unknown) (unknown) (no (unknown) (unknown) BP 102/70 (units (u nknown) date) unknown) (unknown) (no (unknown) (unknown) Back: Without (units (unknown) date) CVA or flank unknown) tenderness to percussion (unknown) (no (unknown) (unknown) Billing- Post (units ( unknown) date) Void Residual: unknown) Post Void Residual- 40538 (unknown) (no (unknown) (unknown) Bladder volume: (units (unknown) date) PVR = 91ml unknown) (unknown) (no (unknown) (unknown) Blood Pressure (units (unknown) date) Location Lt unknown) brachial (unknown) (no (unknown) (unknown) CT abdomen (units (unk nown) date) pelvis wo/w con 1 unknown) Week N39.0 - Urinary tract infection, site not (unknown) (no (unknown) (unknown) Cardiovascular (units (unknown) date) exam: Regular unknown) rate and rhythm without murmur (unknown) (no (unknown) (unknown) Chief Complaint (units (unknown) date) unknown) (unknown) (no (unknown) (unknown) Chief Complaint: (units (unknown) date) Recurring urinary unknown) tract infection (unknown) (no (unknown) (unknown) Chronic UTI (units (un known) date) unknown) (unknown) (no (unknown) (unknown) Const (units (unkno wn) date) unknown) (unknown) (no (unknown) (unknown) Counseling and (units (unknown) date) educating the unknown) patient/family/ca regiver: 13 (unknown) (no (unknown) (unknown) : 1995 (units (unknown) date) Acct:[id number] unknown) (unknown) (no (unknown) (unknown) Dept at (units (unkno wn) date) . unknown) (unknown) (no (unknown) (unknown) Details: (units (unkno wn) date) unknown) (unknown) (no (unknown) (unknown) Documented By: (units (unknown) date) Sudeep Pelaez MD unknown) 02/13/22 1411 (unknown) (no (unknown) (unknown) Exam (units (unkno wn) date) unknown) (unknown) (no (unknown) (unknown) Exam Narrative (units (unknown) date) unknown) (unknown) (no (unknown) (unknown) Exam Narrative: (units (unknown) date) unknown) (unknown) (no (unknown) (unknown) Family History (units (unknown) date) (Reviewed unknown) 02/14/22 @ 12:23 by Sudeep Pelaez MD) (unknown) (no (unknown) (unknown) Family/Other (units (u nknown) date) Hypertension unknown) (unknown) (no (unknown) (unknown) Father Hx of (units (unknown) date) migraines unknown) (unknown) (no (unknown) (unknown) General: This (units (unknown) date) is an awake, unknown) alert, oriented female who appears (unknown) (no (unknown) (unknown) Genitourinary (units ( unknown) date) exam: Deferred to unknown) flexible cystoscopy (unknown) (no (unknown) (unknown) Grandmother (units (un known) date) Hypertension unknown) (unknown) (no (unknown) (unknown) HPI (units (unkno wn) date) unknown) (unknown) (no (unknown) (unknown) Height 4 ft (units (unknown) date) 11 in unknown) (unknown) (no (unknown) (unknown) Hx of migraines (units (unknown) date) unknown) (unknown) (no (unknown) (unknown) Intake (units (unkno wn) date) unknown) (unknown) (no (unknown) (unknown) Intake Note: (units (u nknown) date) unknown) (unknown) (no (unknown) (unknown) Loc: [facility] (units (unkno wn) date) unknown) (unknown) (no (unknown) (unknown) Lungs: Clear (units ( unknown) date) full and equal unknown) (unknown) (no (unknown) (unknown) Medical History (units (unknown) date) (Reviewed unknown) 02/14/22 @ 12:23 by Sudeep Pelaez MD) (unknown) (no (unknown) (unknown) Mother (units (unkno wn) date) Hypertension unknown) (unknown) (no (unknown) (unknown) N39.0 - Urinary (units (unknown) date) tract infection, unknown) site not specified (unknown) (no (unknown) (unknown) Neurologic exam: (units (unknown) date) Grossly intact unknown) (unknown) (no (unknown) (unknown) Obtaining and/or (units (unknown) date) reviewing unknown) separately obtained history: 10 (unknown) (no (unknown) (unknown) Office (units (unkno wn) date) Procedures unknown) (unknown) (no (unknown) (unknown) Ordering (units (unkno wn) date) medications, unknown) tests, or procedures: 5 (unknown) (no (unknown) (unknown) Orders (units (unkno wn) date) unknown) (unknown) (no (unknown) (unknown) Oxygen Delivery (units (unknown) date) Method room unknown) air (unknown) (no (unknown) (unknown) PFSH (units (unkno wn) date) unknown) (unknown) (no (unknown) (unknown) POC Urine Dip (units ( unknown) date) 02/13/22 R30.0 - unknown) Dysuria (unknown) (no (unknown) (unknown) Patient: (units (unkno wn) date) Fariba Hernandez unknown) MR#: [id number] (unknown) (no (unknown) (unknown) Performing a (units (u nknown) date) medically unknown) appropriate exam and/or evaluation: 4 (unknown) (no (unknown) (unknown) Plan (units (unkno wn) date) unknown) (unknown) (no (unknown) (unknown) Position (units (unkno wn) date) Sitting unknown) (unknown) (no (unknown) (unknown) Preparing to see (units (unknown) date) the patient, unknown) i.e., chart review, review of tests: 11 (unknown) (no (unknown) (unknown) Pulse 72 (units (un known) date) unknown) (unknown) (no (unknown) (unknown) Pulse Oximetry (units (unknown) date) (%) 100 unknown) (unknown) (no (unknown) (unknown) Pulse Source (units (u nknown) date) Monitor unknown) (unknown) (no (unknown) (unknown) ROS (units (unkno wn) date) unknown) (unknown) (no (unknown) (unknown) Reason For Visit (units (unknown) date) unknown) (unknown) (no (unknown) (unknown) Recurrent (units (unkn own) date) urinary tract unknown) infection (unknown) (no (unknown) (unknown) Residual: post (units (unknown) date) void unknown) (unknown) (no (unknown) (unknown) Respiration (units (un known) date) 16 unknown) (unknown) (no (unknown) (unknown) Results (units (unkno wn) date) unknown) (unknown) (no (unknown) (unknown) She has not had (units (unknown) date) a workup. 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 [employer] and (unknown) (no (unknown) (unknown) This 26-year-old (units (unknown) date) female comes unknown) [facility]rology Clinic as a new patient with complaint of (unknown) (no (unknown) (unknown) This note may (units ( unknown) date) have been all or unknown) partially generated using voice recognition (unknown) (no (unknown) (unknown) Time Coding (units (un known) date) Minutes Spent: unknown) (must be on same date of service/appointme nt) (unknown) (no (unknown) (unknown) Time Spent (units (unk nown) date) unknown) (unknown) (no (unknown) (unknown) Total Time: 45 (units (unknown) date) unknown) (unknown) (no (unknown) (unknown) Type(s) of (units (unk nown) date) exercise: none unknown) (unknown) (no (unknown) (unknown) Urine Culture (units ( unknown) date) 02/13/22 R30.0 - unknown) Dysuria (unknown) (no (unknown) (unknown) Urine Dipstick (units (unknown) date) unknown) (unknown) (no (unknown) (unknown) Visit Reasons: (units (unknown) date) 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 She has been given cepha (unknown) (no (unknown) (unknown) appearing (units (unkn own) date) infected plan unknown) would be to culture urine and treat with culture (unknown) (no (unknown) (unknown) better or worse (units (unknown) date) and voices unknown) appropriate you I preventative behavior. (unknown) (no (unknown) (unknown) chills sign or (units (unknown) date) symptom systemic unknown) infectious illness she is to call. We will (unknown) (no (unknown) (unknown) cystoscopy once (units (unknown) date) the patient is on unknown) antibiotics and recovering. (unknown) (no (unknown) (unknown) eliminated all (units (unknown) date) of the unknown) infections. She is unsure of anything that makes it (unknown) (no (unknown) (unknown) frequency, (units (unk nown) date) dysuria, urgency unknown) and occasionally in of odor as well as low back (unknown) (no (unknown) (unknown) given (units (unkno wn) date) antibiotics and unknown) did not have workup. Which he has infection she has (unknown) (no (unknown) (unknown) had 6 date (units (unk nown) date) infections and unknown) thus far in 2021 she feels she has had 8 infections. (unknown) (no (unknown) (unknown) have occurred. (units (unknown) date) If there are any unknown) questions, please contact the Medical Records (unknown) (no (unknown) (unknown) infection today (units (unknown) date) and her urine unknown) does in fact look infected and will be cultured. (unknown) (no (unknown) (unknown) lexin to take (units ( unknown) date) after intercourse unknown) and has done this but finds that it has not (unknown) (no (unknown) (unknown) makes her tongue (units (unknown) date) swelling gives unknown) her hives, Cipro gave her oral blisters. She (unknown) (no (unknown) (unknown) marital status: (units (unknown) date) unmarried,single unknown) (unknown) (no (unknown) (unknown) may occur. (units (unk nown) date) Occasional unknown) wrong-word or 'sound-alike' substitutions may have (unknown) (no (unknown) (unknown) obtain a CT scan (units (unknown) date) abdomen pelvis unknown) with and without contrast performed flexible (unknown) (no (unknown) (unknown) occurred due to (units (unknown) date) the inherent unknown) limitations of voice recognition software. Please (unknown) (no (unknown) (unknown) pain. Patient (units (unknown) date) denies hematuria unknown) or history of stone. She reports that Bactrim (unknown) (no (unknown) (unknown) problem list) (units ( unknown) date) unknown) (unknown) (no (unknown) (unknown) read the note (units ( unknown) date) carefully and unknown) recognize, using context, where these substitutions (unknown) (no (unknown) (unknown) recurring (units (unkn own) date) urinary tract unknown) infections. She states a feel I have urinary tract (unknown) (no (unknown) (unknown) software. (units (unkn own) date) Although every unknown) effort is made to edit content, [employer] errors (unknown) (no (unknown) (unknown) specific (units (unkno wn) date) antibiotics; the unknown) patient is instructed that if she should develop fever (unknown) (no (unknown) (unknown) specified (units (unkn own) date) unknown) (unknown) (no (unknown) (unknown) that and 2018 (units ( unknown) date) she had 8 unknown) infections in 2019 she had 8 infections in 1999 21 she (unknown) (no (unknown) (unknown) today in no (units (un known) date) apparent unknown) distress. (unknown) (no (unknown) (unknown) without (units (unkno wn) date) peritoneal signs. unknown) Result panel 7 (unknown) (no date) (unknown) (unknown) >100,000 CFU/ml (unkn own) (unknown) (no date) (unknown) (unknown) <=0.12 (units (unkn own) unknown) (unknown) (no date) (unknown) (unknown) <=0.25 (units (unkn own) unknown) (unknown) (no date) (unknown) (unknown) <=0.5 (units (unkn own) unknown) (unknown) (no date) (unknown) (unknown) <=1 (units (unkn own) unknown) (unknown) (no date) (unknown) (unknown) <=16 (units (unkn own) unknown) (unknown) (no date) (unknown) (unknown) <=2 (units (unkn own) unknown) (unknown) (no date) (unknown) (unknown) <=20 (units (unkn own) unknown) (unknown) (no date) (unknown) (unknown) <=4 (units (unkn own) unknown) (unknown) (no date) (unknown) (unknown) 4 (units (unkn own) unknown) (unknown) (no date) (unknown) (unknown) GenericCompos (units (unknown) ite[ESCCOL^Esc unknown) herichia coli] Result panel 8 (unknown) (no (unknown) (unknown) (no value) (units (unk nown) date) unknown) (unknown) (no (unknown) (unknown) Orders: (units (unkno wn) date) unknown) (unknown) (no (unknown) (unknown) (no value) (units (unk nown) date) unknown) (unknown) (no (unknown) (unknown) [place], [place] (units ( unknown) date) [id number] unknown) (unknown) (no (unknown) (unknown) Draft (units (unkno wn) date) unknown) (unknown) (no (unknown) (unknown) [facility] (units (unknown) date) unknown) (unknown) (no (unknown) (unknown) Kidney stones (units ( unknown) date) unknown) (unknown) (no (unknown) (unknown) UTI (urinary tract (units (unknown) date) infection), unknown) uncomplicated (unknown) (no (unknown) (unknown) Urology Office (units (unknown) date) Visit unknown) (unknown) (no (unknown) (unknown) tongue swelling, (units (unknown) date) hives unknown) (unknown) (no (unknown) (unknown) (no value) (units (unk nown) date) unknown) (unknown) (no (unknown) (unknown) 03/22/22 (units (unkno wn) date) unknown) (unknown) (no (unknown) (unknown) 26 y/o F presents (units (unknown) date) to clinic for unknown) flexible cystoscopy. Review CT Scan. (unknown) (no (unknown) (unknown) [id number] (units (unkno wn) date) unknown) (unknown) (no (unknown) (unknown) Age/Sex: 26 / F (units (unknown) date) Date of Service: unknown) (unknown) (no (unknown) (unknown) Allergies (units (unkn own) date) unknown) (unknown) (no (unknown) (unknown) Anemia (units (unkno wn) date) unknown) (unknown) (no (unknown) (unknown) Assessment + Plan (units (unknown) date) unknown) (unknown) (no (unknown) (unknown) Attending Dr: (units ( unknown) date) Sudeep Pelaez MD unknown) (unknown) (no (unknown) (unknown) Billing- Post Void (units (unknown) date) Residual: Post Void unknown) Residual- 42094 (unknown) (no (unknown) (unknown) Bladder volume: (units (unknown) date) PVR = unknown) (unknown) (no (unknown) (unknown) Chronic UTI (units (un known) date) unknown) (unknown) (no (unknown) (unknown) : 1995 (units (unknown) date) Acct:[id number] unknown) (unknown) (no (unknown) (unknown) Dept at (units (unkno wn) date) . unknown) (unknown) (no (unknown) (unknown) Documented By: (units (unknown) date) Sudeep Pelaez MD unknown) 03/22/22 1240 (unknown) (no (unknown) (unknown) Family History (units (unknown) date) (Reviewed 02/14/22 unknown) @ 12:23 by Sudeep Pelaez MD) (unknown) (no (unknown) (unknown) Family/Other (units (u nknown) date) Hypertension unknown) (unknown) (no (unknown) (unknown) Father Hx of (units (unknown) date) migraines unknown) (unknown) (no (unknown) (unknown) Grandmother (units (un known) date) Hypertension unknown) (unknown) (no (unknown) (unknown) Hx of migraines (units (unknown) date) unknown) (unknown) (no (unknown) (unknown) Intake (units (unkno wn) date) unknown) (unknown) (no (unknown) (unknown) Intake Note: (units (u nknown) date) unknown) (unknown) (no (unknown) (unknown) Intake performed (units (unknown) date) by: Wendy Davenport unknown) (unknown) (no (unknown) (unknown) Intake- Clincial (units (unknown) date) Staff unknown) (unknown) (no (unknown) (unknown) Loc: [facility] (units (unkno wn) date) unknown) (unknown) (no (unknown) (unknown) Medical History (units (unknown) date) (Reviewed 02/14/22 unknown) @ 12:23 by Sudeep Pelaez MD) (unknown) (no (unknown) (unknown) Mother (units (unkno wn) date) Hypertension unknown) (unknown) (no (unknown) (unknown) Office Procedures (units (unknown) date) unknown) (unknown) (no (unknown) (unknown) Orders (units (unkno wn) date) unknown) (unknown) (no (unknown) (unknown) PFSH (units (unkno wn) date) unknown) (unknown) (no (unknown) (unknown) POC Urine Dip (units ( unknown) date) Today R30.0 - unknown) Dysuria (unknown) (no (unknown) (unknown) Patient: (units (unkno wn) date) Fariba Hernandez unknown) MR#: [id number] (unknown) (no (unknown) (unknown) Procedure (units (unkn own) date) performed by: unknown) Wendy Davenport (unknown) (no (unknown) (unknown) Reason For Visit (units (unknown) date) unknown) (unknown) (no (unknown) (unknown) Recurrent urinary (units (unknown) date) tract infection unknown) (unknown) (no (unknown) (unknown) Residual: post (units (unknown) date) void unknown) (unknown) (no (unknown) (unknown) Signed By: (units (unk nown) date) unknown) (unknown) (no (unknown) (unknown) Social History (units (unknown) date) (Reviewed 02/14/22 unknown) @ 12:23 by Sudeep Pelaez MD) (unknown) (no (unknown) (unknown) This note may have (units (unknown) date) been all or unknown) partially generated using voice recognition (unknown) (no (unknown) (unknown) Type(s) of (units (unk nown) date) exercise: none unknown) (unknown) (no (unknown) (unknown) Visit Reasons: (units (unknown) date) Flex Cysto review unknown) CT scan - check in at noon (unknown) (no (unknown) (unknown) ciprofloxacin (units ( unknown) date) Allergy (Verified unknown) 02/15/22 11:27) (unknown) (no (unknown) (unknown) have occurred. If (units (unknown) date) there are any unknown) questions, please contact the Medical Records (unknown) (no (unknown) (unknown) marital status: (units (unknown) date) unmarried,single unknown) (unknown) (no (unknown) (unknown) may occur. (units (unk nown) date) Occasional unknown) wrong-word or 'sound-alike' substitutions may have (unknown) (no (unknown) (unknown) occurred due to (units (unknown) date) the inherent unknown) limitations of voice recognition software. Please (unknown) (no (unknown) (unknown) read the note (units ( unknown) date) carefully and unknown) recognize, using context, where these substitutions (unknown) (no (unknown) (unknown) software. Although (units (unknown) date) every effort is unknown) made to edit content, [employer] errors (unknown) (no (unknown) (unknown) sulfamethoxazole (units (unknown) date) [From Bactrim] unknown) Allergy (Severe, Verified 02/15/22 11:27) (unknown) (no (unknown) (unknown) trimethoprim [From (units (unknown) date) Bactrim] Allergy unknown) (Severe, Verified 02/15/22 11:27) Result panel 9 (unknown) (no (unknown) (unknown) (no value) (units (unk nown) date) unknown) (unknown) (no (unknown) (unknown) Orders: (units (unkno wn) date) unknown) (unknown) (no (unknown) (unknown) (no value) (units (unk nown) date) unknown) (unknown) (no (unknown) (unknown) (no value) (units (unk nown) date) unknown) (unknown) (no (unknown) (unknown) [place] (units ( unknown) date) [id number] unknown) (unknown) (no (unknown) (unknown) Draft (units (unkno wn) date) unknown) (unknown) (no (unknown) (unknown) [facility] (units (unknown) date) unknown) (unknown) (no (unknown) (unknown) Kidney stones (units ( unknown) date) unknown) (unknown) (no (unknown) (unknown) UTI (urinary tract (units (unknown) date) infection), unknown) uncomplicated (unknown) (no (unknown) (unknown) Urology Office (units (unknown) date) Visit unknown) (unknown) (no (unknown) (unknown) tongue swelling, (units (unknown) date) hives unknown) (unknown) (no (unknown) (unknown) (no value) (units (unk nown) date) unknown) (unknown) (no (unknown) (unknown) Urine Appearance (units (unknown) date) Slighty Cloudy unknown) Last Edit by Wendy Davenport RN on 03/22/22 (unknown) (no (unknown) (unknown) Urine Bilirubin 3+ (units (unknown) date) 4 mg/dL Last unknown) Edit by Wendy Davenport RN on 03/22/22 12:5 (unknown) (no (unknown) (unknown) Urine Blood (units (un known) date) Negative Last unknown) Edit by Wendy Davenport RN on 03/22/22 12:53 (unknown) (no (unknown) (unknown) Urine Color (units (un known) date) Yellow Last unknown) Edit by Wendy Davenport RN on 03/22/22 12:53 (unknown) (no (unknown) (unknown) Urine Glucose (units ( unknown) date) Negative mg/dL unknown) Last Edit by Wendy Davenport RN on 03/22/22 12: (unknown) (no (unknown) (unknown) Urine Ketones (units ( unknown) date) Negative Last unknown) Edit by Wendy Davenport RN on 03/22/22 12:53 (unknown) (no (unknown) (unknown) Urine Leukocyte (units (unknown) date) Esterase +- 15 unknown) Anmol/uL Last Edit by Wendy Davenport RN on (unknown) (no (unknown) (unknown) Urine Nitrate (units ( unknown) date) Positive Last unknown) Edit by Wendy Davenport RN on 03/22/22 12:53 (unknown) (no (unknown) (unknown) Urine Protein +- (units (unknown) date) 15 mg/dL Last unknown) Edit by Wendy Davenport RN on 03/22/22 12:53 (unknown) (no (unknown) (unknown) Urine Specific (units (unknown) date) [place] 1.025 unknown) Last Edit by Wendy Davenport RN on 03/22/22 12 (unknown) (no (unknown) (unknown) Urine Urobilinogen (units (unknown) date) - 0.2 mg/dL unknown) Last Edit by Wendy Davenport RN on (unknown) (no (unknown) (unknown) Urine pH 6.0 (units (unknown) date) Last Edit by Wendy unknown) ERIC Davenport on 03/22/22 12:53 (unknown) (no (unknown) (unknown) 03/22/22 (units (unkno wn) date) unknown) (unknown) (no (unknown) (unknown) 03/22/22 12:53 (units (unknown) date) unknown) (unknown) (no (unknown) (unknown) 12:53 (units (unkno wn) date) unknown) (unknown) (no (unknown) (unknown) 2 (units (unkno wn) date) unknown) (unknown) (no (unknown) (unknown) 26 y/o F presents (units (unknown) date) to clinic for unknown) flexible cystoscopy. Review CT Scan. (unknown) (no (unknown) (unknown) 3 (units (unkno wn) date) unknown) (unknown) (no (unknown) (unknown) [id number] (units (unkno wn) date) unknown) (unknown) (no (unknown) (unknown) 53 (units (unkno wn) date) unknown) (unknown) (no (unknown) (unknown) :53 (units (unkno wn) date) unknown) (unknown) (no (unknown) (unknown) Age/Sex: 26 / F (units (unknown) date) Date of Service: unknown) (unknown) (no (unknown) (unknown) Allergies (units (unkn own) date) unknown) (unknown) (no (unknown) (unknown) Anemia (units (unkno wn) date) unknown) (unknown) (no (unknown) (unknown) Assessment + Plan (units (unknown) date) unknown) (unknown) (no (unknown) (unknown) Attending Dr: (units ( unknown) date) Sudeep Pelaez MD unknown) (unknown) (no (unknown) (unknown) Billing- Post Void (units (unknown) date) Residual: Post Void unknown) Residual- 21193 (unknown) (no (unknown) (unknown) Bladder volume: (units (unknown) date) PVR = unknown) (unknown) (no (unknown) (unknown) Chronic UTI (units (un known) date) unknown) (unknown) (no (unknown) (unknown) : 1995 (units (unknown) date) Acct:[id number] unknown) (unknown) (no (unknown) (unknown) Dept at (units (unkno wn) date) . unknown) (unknown) (no (unknown) (unknown) Documented By: (units (unknown) date) Sudeep Pelaez MD unknown) 03/22/22 1240 (unknown) (no (unknown) (unknown) Family History (units (unknown) date) (Reviewed 02/14/22 unknown) @ 12:23 by Sudeep Pelaez MD) (unknown) (no (unknown) (unknown) Family/Other (units (u nknown) date) Hypertension unknown) (unknown) (no (unknown) (unknown) Father Hx of (units (unknown) date) migraines unknown) (unknown) (no (unknown) (unknown) Grandmother (units (un known) date) Hypertension unknown) (unknown) (no (unknown) (unknown) Hx of migraines (units (unknown) date) unknown) (unknown) (no (unknown) (unknown) Intake (units (unkno wn) date) unknown) (unknown) (no (unknown) (unknown) Intake Note: (units (u nknown) date) unknown) (unknown) (no (unknown) (unknown) Intake performed (units (unknown) date) by: Wendy Davenport unknown) (unknown) (no (unknown) (unknown) Intake- Clincial (units (unknown) date) Staff unknown) (unknown) (no (unknown) (unknown) Loc: [facility] (units (unkno wn) date) unknown) (unknown) (no (unknown) (unknown) Medical History (units (unknown) date) (Reviewed 02/14/22 unknown) @ 12:23 by Sudeep Pelaez MD) (unknown) (no (unknown) (unknown) Mother (units (unkno wn) date) Hypertension unknown) (unknown) (no (unknown) (unknown) Office Procedures (units (unknown) date) unknown) (unknown) (no (unknown) (unknown) Orders (units (unkno wn) date) unknown) (unknown) (no (unknown) (unknown) PFSH (units (unkno wn) date) unknown) (unknown) (no (unknown) (unknown) POC Urine Dip (units ( unknown) date) Today R30.0 - unknown) Dysuria (unknown) (no (unknown) (unknown) Patient: (units (unkno wn) date) Fariba Hernandez unknown) MR#: [id number] (unknown) (no (unknown) (unknown) Procedure (units (unkn own) date) performed by: unknown) Wendy Davenport (unknown) (no (unknown) (unknown) Reason For Visit (units (unknown) date) unknown) (unknown) (no (unknown) (unknown) Recurrent urinary (units (unknown) date) tract infection unknown) (unknown) (no (unknown) (unknown) Residual: post (units (unknown) date) void unknown) (unknown) (no (unknown) (unknown) Results (units (unkno wn) date) unknown) (unknown) (no (unknown) (unknown) Signed By: (units (unk nown) date) unknown) (unknown) (no (unknown) (unknown) Social History (units (unknown) date) (Reviewed 02/14/22 unknown) @ 12:23 by Sudeep Pelaez MD) (unknown) (no (unknown) (unknown) This note may have (units (unknown) date) been all or unknown) partially generated using voice recognition (unknown) (no (unknown) (unknown) Type(s) of (units (unk nown) date) exercise: none unknown) (unknown) (no (unknown) (unknown) Urine Dipstick (units (unknown) date) unknown) (unknown) (no (unknown) (unknown) Visit Reasons: (units (unknown) date) Flex Cysto review unknown) CT scan - check in at noon (unknown) (no (unknown) (unknown) ciprofloxacin (units ( unknown) date) Allergy (Verified unknown) 02/15/22 11:27) (unknown) (no (unknown) (unknown) have occurred. If (units (unknown) date) there are any unknown) questions, please contact the Medical Records (unknown) (no (unknown) (unknown) marital status: (units (unknown) date) unmarried,single unknown) (unknown) (no (unknown) (unknown) may occur. (units (unk nown) date) Occasional unknown) wrong-word or 'sound-alike' substitutions may have (unknown) (no (unknown) (unknown) occurred due to (units (unknown) date) the inherent unknown) limitations of voice recognition software. Please (unknown) (no (unknown) (unknown) read the note (units ( unknown) date) carefully and unknown) recognize, using context, where these substitutions (unknown) (no (unknown) (unknown) software. Although (units (unknown) date) every effort is unknown) made to edit content, livestock farm workers errors (unknown) (no (unknown) (unknown) sulfamethoxazole (units (unknown) date) [From Bactrim] unknown) Allergy (Severe, Verified 02/15/22 11:27) (unknown) (no (unknown) (unknown) trimethoprim [From (units (unknown) date) Bactrim] Allergy unknown) (Severe, Verified 02/15/22 11:27) Result panel 10 (unknown) (no (unknown) (unknown) (no value) (units (unk nown) date) unknown) (unknown) (no (unknown) (unknown) Orders: (units (unkno wn) date) unknown) (unknown) (no (unknown) (unknown) (no value) (units (unk nown) date) unknown) (unknown) (no (unknown) (unknown) (no value) (units (unk nown) date) unknown) (unknown) (no (unknown) (unknown) KATTY [place] (units ( unknown) date) [id number] unknown) (unknown) (no (unknown) (unknown) Draft (units (unkno wn) date) unknown) (unknown) (no (unknown) (unknown) [facility] (units (unknown) date) unknown) (unknown) (no (unknown) (unknown) Kidney stones (units ( unknown) date) unknown) (unknown) (no (unknown) (unknown) UTI (urinary tract (units (unknown) date) infection), unknown) uncomplicated (unknown) (no (unknown) (unknown) Urology Office (units (unknown) date) Visit unknown) (unknown) (no (unknown) (unknown) tongue swelling, (units (unknown) date) hives unknown) (unknown) (no (unknown) (unknown) (no value) (units (unk nown) date) unknown) (unknown) (no (unknown) (unknown) 03/22/22 (units (unkno wn) date) unknown) (unknown) (no (unknown) (unknown) 26 y/o F presents (units (unknown) date) to clinic for unknown) flexible cystoscopy. Review CT Scan. (unknown) (no (unknown) (unknown) [id number] (units (unkno wn) date) unknown) (unknown) (no (unknown) (unknown) Age/Sex: 26 / F (units (unknown) date) Date of Service: unknown) (unknown) (no (unknown) (unknown) Allergies (units (unkn own) date) unknown) (unknown) (no (unknown) (unknown) Anemia (units (unkno wn) date) unknown) (unknown) (no (unknown) (unknown) Assessment + Plan (units (unknown) date) unknown) (unknown) (no (unknown) (unknown) Attending Dr: (units ( unknown) date) Sudeep Pelaez MD unknown) (unknown) (no (unknown) (unknown) Billing- Post Void (units (unknown) date) Residual: Post Void unknown) Residual- 70609 (unknown) (no (unknown) (unknown) Bladder volume: (units (unknown) date) PVR = unknown) (unknown) (no (unknown) (unknown) Chronic UTI (units (un known) date) unknown) (unknown) (no (unknown) (unknown) : 1995 (units (unknown) date) Acct:[id number] unknown) (unknown) (no (unknown) (unknown) Dept at (units (unkno wn) date) . unknown) (unknown) (no (unknown) (unknown) Documented By: (units (unknown) date) Sudeep Pelaez MD unknown) 03/22/22 1240 (unknown) (no (unknown) (unknown) Family History (units (unknown) date) (Reviewed 02/14/22 unknown) @ 12:23 by Sudeep Pelaez MD) (unknown) (no (unknown) (unknown) Family/Other (units (u nknown) date) Hypertension unknown) (unknown) (no (unknown) (unknown) Father Hx of (units (unknown) date) migraines unknown) (unknown) (no (unknown) (unknown) Grandmother (units (un known) date) Hypertension unknown) (unknown) (no (unknown) (unknown) Hx of migraines (units (unknown) date) unknown) (unknown) (no (unknown) (unknown) Intake (units (unkno wn) date) unknown) (unknown) (no (unknown) (unknown) Intake Note: (units (u nknown) date) unknown) (unknown) (no (unknown) (unknown) Intake performed (units (unknown) date) by: Wendy Davenport unknown) (unknown) (no (unknown) (unknown) Intake- Clincial (units (unknown) date) Staff unknown) (unknown) (no (unknown) (unknown) Loc: [facility] (units (unkno wn) date) unknown) (unknown) (no (unknown) (unknown) Medical History (units (unknown) date) (Reviewed 02/14/22 unknown) @ 12:23 by Sudeep Pelaez MD) (unknown) (no (unknown) (unknown) Mother (units (unkno wn) date) Hypertension unknown) (unknown) (no (unknown) (unknown) Office Procedures (units (unknown) date) unknown) (unknown) (no (unknown) (unknown) Orders (units (unkno wn) date) unknown) (unknown) (no (unknown) (unknown) PFSH (units (unkno wn) date) unknown) (unknown) (no (unknown) (unknown) POC Urine Dip (units ( unknown) date) Today R30.0 - unknown) Dysuria (unknown) (no (unknown) (unknown) Patient: (units (unkno wn) date) Fariba Hernandez unknown) MR#: [id number] (unknown) (no (unknown) (unknown) Procedure (units (unkn own) date) performed by: unknown) Wendy Davenport (unknown) (no (unknown) (unknown) Reason For Visit (units (unknown) date) unknown) (unknown) (no (unknown) (unknown) Recurrent urinary (units (unknown) date) tract infection unknown) (unknown) (no (unknown) (unknown) Residual: post (units (unknown) date) void unknown) (unknown) (no (unknown) (unknown) Signed By: (units (unk nown) date) unknown) (unknown) (no (unknown) (unknown) Social History (units (unknown) date) (Reviewed 02/14/22 unknown) @ 12:23 by Sudeep Pelaez MD) (unknown) (no (unknown) (unknown) This note may have (units (unknown) date) been all or unknown) partially generated using voice recognition (unknown) (no (unknown) (unknown) Type(s) of (units (unk nown) date) exercise: none unknown) (unknown) (no (unknown) (unknown) Urine Culture (units ( unknown) date) Today R30.0 - unknown) Dysuria (unknown) (no (unknown) (unknown) Visit Reasons: (units (unknown) date) Flex Cysto review unknown) CT scan - check in at noon (unknown) (no (unknown) (unknown) ciprofloxacin (units ( unknown) date) Allergy (Verified unknown) 02/15/22 11:27) (unknown) (no (unknown) (unknown) have occurred. If (units (unknown) date) there are any unknown) questions, please contact the Medical Records (unknown) (no (unknown) (unknown) marital status: (units (unknown) date) unmarried,single unknown) (unknown) (no (unknown) (unknown) may occur. (units (unk nown) date) Occasional unknown) wrong-word or 'sound-alike' substitutions may have (unknown) (no (unknown) (unknown) occurred due to (units (unknown) date) the inherent unknown) limitations of voice recognition software. Please (unknown) (no (unknown) (unknown) read the note (units ( unknown) date) carefully and unknown) recognize, using context, where these substitutions (unknown) (no (unknown) (unknown) software. Although (units (unknown) date) every effort is unknown) made to edit content, livestock farm workers errors (unknown) (no (unknown) (unknown) sulfamethoxazole (units (unknown) date) [From Bactrim] unknown) Allergy (Severe, Verified 02/15/22 11:27) (unknown) (no (unknown) (unknown) trimethoprim [From (units (unknown) date) Bactrim] Allergy unknown) (Severe, Verified 02/15/22 11:27) Result panel 11 (unknown) (no (unknown) (unknown) >100,000 CFU/ml (unkno wn) date) (unknown) (no (unknown) (unknown) GenericComposite[ (units (unknown) date) GNB^Gram negative unknown) bacilli] (unknown) (no (unknown) (unknown) Identification (units (unknown) date) and Sensitivity to unknown) Follow Result panel 12 (unknown) (no date) (unknown) (unknown) (no value) (units (un known) unknown) (unknown) (no date) (unknown) (unknown) >100,000 CFU/ml (unkn own) (unknown) (no date) (unknown) (unknown) >=128 (units (unkn own) unknown) (unknown) (no date) (unknown) (unknown) >=64 (units (unkn own) unknown) (unknown) (no date) (unknown) (unknown) <=0.12 (units (unkn own) unknown) (unknown) (no date) (unknown) (unknown) <=0.25 (units (unkn own) unknown) (unknown) (no date) (unknown) (unknown) <=0.5 (units (unkn own) unknown) (unknown) (no date) (unknown) (unknown) <=1 (units (unkn own) unknown) (unknown) (no date) (unknown) (unknown) <=20 (units (unkn own) unknown) (unknown) (no date) (unknown) (unknown) 1 (units (unkn own) unknown) (unknown) (no date) (unknown) (unknown) 16 (units (unkn own) unknown) (unknown) (no date) (unknown) (unknown) 64 (units (unkn own) unknown) (unknown) (no date) (unknown) (unknown) GenericComp (units (u nknown) osite[ENTAER unknown) ^Enterobacte r aerogenes] Result panel 13 (unknown) (no (unknown) (unknown) (no value) (units (unk nown) date) unknown) (unknown) (no (unknown) (unknown) Orders: (units (unkno wn) date) unknown) (unknown) (no (unknown) (unknown) (no value) (units (unk nown) date) unknown) (unknown) (no (unknown) (unknown) (no value) (units (unk nown) date) unknown) (unknown) (no (unknown) (unknown) [place], [place] (units ( unknown) date) [id number] unknown) (unknown) (no (unknown) (unknown) Draft (units (unkno wn) date) unknown) (unknown) (no (unknown) (unknown) [facility] (units (unknown) date) unknown) (unknown) (no (unknown) (unknown) Kidney stones (units ( unknown) date) unknown) (unknown) (no (unknown) (unknown) UTI (urinary tract (units (unknown) date) infection), unknown) uncomplicated (unknown) (no (unknown) (unknown) Urology Office (units (unknown) date) Visit unknown) (unknown) (no (unknown) (unknown) tongue swelling, (units (unknown) date) hives unknown) (unknown) (no (unknown) (unknown) (no value) (units (unk nown) date) unknown) (unknown) (no (unknown) (unknown) 05/10/22 (units (unkno wn) date) unknown) (unknown) (no (unknown) (unknown) 26 y/o F presents (units (unknown) date) to clinic for unknown) flexible cystoscopy. Review CT Scan. (unknown) (no (unknown) (unknown) [id number] (units (unkno wn) date) unknown) (unknown) (no (unknown) (unknown) Age/Sex: 26 / F (units (unknown) date) Date of Service: unknown) (unknown) (no (unknown) (unknown) Allergies (units (unkn own) date) unknown) (unknown) (no (unknown) (unknown) Anemia (units (unkno wn) date) unknown) (unknown) (no (unknown) (unknown) Assessment + Plan (units (unknown) date) unknown) (unknown) (no (unknown) (unknown) Attending Dr: (units ( unknown) date) Sudeep Pelaez MD unknown) (unknown) (no (unknown) (unknown) Billing- Post Void (units (unknown) date) Residual: Post Void unknown) Residual- 85905 (unknown) (no (unknown) (unknown) Bladder volume: (units (unknown) date) PVR = unknown) (unknown) (no (unknown) (unknown) Chronic UTI (units (un known) date) unknown) (unknown) (no (unknown) (unknown) : 1995 (units (unknown) date) Acct:[id number] unknown) (unknown) (no (unknown) (unknown) Dept at (units (unkno wn) date) . unknown) (unknown) (no (unknown) (unknown) Documented By: (units (unknown) date) Sudeep Pelaez MD unknown) 03/22/22 1240 (unknown) (no (unknown) (unknown) Family History (units (unknown) date) (Reviewed 02/14/22 unknown) @ 12:23 by Sudeep Pelaez MD) (unknown) (no (unknown) (unknown) Family/Other (units (u nknown) date) Hypertension unknown) (unknown) (no (unknown) (unknown) Father Hx of (units (unknown) date) migraines unknown) (unknown) (no (unknown) (unknown) Grandmother (units (un known) date) Hypertension unknown) (unknown) (no (unknown) (unknown) Hx of migraines (units (unknown) date) unknown) (unknown) (no (unknown) (unknown) Intake (units (unkno wn) date) unknown) (unknown) (no (unknown) (unknown) Intake Note: (units (u nknown) date) unknown) (unknown) (no (unknown) (unknown) Intake performed (units (unknown) date) by: Wendy Davenport unknown) (unknown) (no (unknown) (unknown) Intake- Clincial (units (unknown) date) Staff unknown) (unknown) (no (unknown) (unknown) Loc: [facility] (units (unkno wn) date) unknown) (unknown) (no (unknown) (unknown) Medical History (units (unknown) date) (Reviewed 02/14/22 unknown) @ 12:23 by Sudeep Pelaez MD) (unknown) (no (unknown) (unknown) Mother (units (unkno wn) date) Hypertension unknown) (unknown) (no (unknown) (unknown) Office Procedures (units (unknown) date) unknown) (unknown) (no (unknown) (unknown) Orders (units (unkno wn) date) unknown) (unknown) (no (unknown) (unknown) PFSH (units (unkno wn) date) unknown) (unknown) (no (unknown) (unknown) POC Urine Dip (units ( unknown) date) 03/22/22 R30.0 - unknown) Dysuria (unknown) (no (unknown) (unknown) Patient: (units (unkno wn) date) Fariba Hernandez unknown) MR#: [id number] (unknown) (no (unknown) (unknown) Procedure (units (unkn own) date) performed by: unknown) Wendy Davenport (unknown) (no (unknown) (unknown) Reason For Visit (units (unknown) date) unknown) (unknown) (no (unknown) (unknown) Recurrent urinary (units (unknown) date) tract infection unknown) (unknown) (no (unknown) (unknown) Residual: post (units (unknown) date) void unknown) (unknown) (no (unknown) (unknown) Signed By: (units (unk nown) date) unknown) (unknown) (no (unknown) (unknown) Social History (units (unknown) date) (Reviewed 02/14/22 unknown) @ 12:23 by Sudeep Pelaez MD) (unknown) (no (unknown) (unknown) This note may have (units (unknown) date) been all or unknown) partially generated using voice recognition (unknown) (no (unknown) (unknown) Type(s) of (units (unk nown) date) exercise: none unknown) (unknown) (no (unknown) (unknown) Urine Culture (units ( unknown) date) 03/22/22 R30.0 - unknown) Dysuria (unknown) (no (unknown) (unknown) Visit Reasons: (units (unknown) date) Flex Cysto review unknown) CT scan - check in at noon (unknown) (no (unknown) (unknown) ciprofloxacin (units ( unknown) date) Allergy (Verified unknown) 02/15/22 11:27) (unknown) (no (unknown) (unknown) have occurred. If (units (unknown) date) there are any unknown) questions, please contact the Medical Records (unknown) (no (unknown) (unknown) marital status: (units (unknown) date) unmarried,single unknown) (unknown) (no (unknown) (unknown) may occur. (units (unk nown) date) Occasional unknown) wrong-word or 'sound-alike' substitutions may have (unknown) (no (unknown) (unknown) occurred due to (units (unknown) date) the inherent unknown) limitations of voice recognition software. Please (unknown) (no (unknown) (unknown) read the note (units ( unknown) date) carefully and unknown) recognize, using context, where these substitutions (unknown) (no (unknown) (unknown) software. Although (units (unknown) date) every effort is unknown) made to edit content, livestock farm workers errors (unknown) (no (unknown) (unknown) sulfamethoxazole (units (unknown) date) [From Bactrim] unknown) Allergy (Severe, Verified 02/15/22 11:27) (unknown) (no (unknown) (unknown) trimethoprim [From (units (unknown) date) Bactrim] Allergy unknown) (Severe, Verified 02/15/22 11:27) Result panel 14 (unknown) (no (unknown) (unknown) (no value) (units (unk nown) date) unknown) (unknown) (no (unknown) (unknown) Medications: (units (u nknown) date) unknown) (unknown) (no (unknown) (unknown) Orders: (units (unkno wn) date) unknown) (unknown) (no (unknown) (unknown) (no value) (units (unk nown) date) unknown) (unknown) (no (unknown) (unknown) (no value) (units (unk nown) date) unknown) (unknown) (no (unknown) (unknown) 05/10/22 (units (unkno wn) date) unknown) (unknown) (no (unknown) (unknown) 14:07 (units (unkno wn) date) unknown) (unknown) (no (unknown) (unknown) [place], [place] (units ( unknown) date) [id number] unknown) (unknown) (no (unknown) (unknown) Draft (units (unkno wn) date) unknown) (unknown) (no (unknown) (unknown) [facility] (units (unknown) date) unknown) (unknown) (no (unknown) (unknown) Kidney stones (units ( unknown) date) unknown) (unknown) (no (unknown) (unknown) UTI (urinary tract (units (unknown) date) infection), unknown) uncomplicated (unknown) (no (unknown) (unknown) Urology Office (units (unknown) date) Visit unknown) (unknown) (no (unknown) (unknown) tongue swelling, (units (unknown) date) hives unknown) (unknown) (no (unknown) (unknown) (no value) (units (unk nown) date) unknown) (unknown) (no (unknown) (unknown) 05/10/22 (units (unkno wn) date) unknown) (unknown) (no (unknown) (unknown) 05/10/22] (units (unkn own) date) unknown) (unknown) (no (unknown) (unknown) 26 y/o F presents (units (unknown) date) to clinic for unknown) flexible cystoscopy. Review CT Scan. (unknown) (no (unknown) (unknown) [id number] (units (unkno wn) date) unknown) (unknown) (no (unknown) (unknown) Add'l Complaint: (units (unknown) date) unknown) (unknown) (no (unknown) (unknown) Age/Sex: 26 / F (units (unknown) date) Date of Service: unknown) (unknown) (no (unknown) (unknown) Allergies (units (unkn own) date) unknown) (unknown) (no (unknown) (unknown) Anemia (units (unkno wn) date) unknown) (unknown) (no (unknown) (unknown) Assessment + Plan (units (unknown) date) unknown) (unknown) (no (unknown) (unknown) Attending Dr: (units ( unknown) date) Sudeep Pelaez MD unknown) (unknown) (no (unknown) (unknown) BP 102/70 (units (u nknown) date) unknown) (unknown) (no (unknown) (unknown) Billing- Post Void (units (unknown) date) Residual: Post Void unknown) Residual- 56888 (unknown) (no (unknown) (unknown) Bladder volume: (units (unknown) date) PVR = 151ml unknown) (unknown) (no (unknown) (unknown) Blood Pressure (units (unknown) date) Location Lt unknown) brachial (unknown) (no (unknown) (unknown) Chief Complaint (units (unknown) date) unknown) (unknown) (no (unknown) (unknown) Chief Complaint: (units (unknown) date) Recurrent urinary unknown) tract infection (unknown) (no (unknown) (unknown) Chronic UTI (units (un known) date) unknown) (unknown) (no (unknown) (unknown) : 1995 (units (unknown) date) Acct:[id number] unknown) (unknown) (no (unknown) (unknown) Dept at (units (unkno wn) date) . unknown) (unknown) (no (unknown) (unknown) Details: (units (unkno wn) date) unknown) (unknown) (no (unknown) (unknown) Documented By: (units (unknown) date) Sudeep Pelaez MD unknown) 05/10/22 1402 (unknown) (no (unknown) (unknown) Family History (units (unknown) date) (Reviewed 02/14/22 unknown) @ 12:23 by Sudeep Pelaez MD) (unknown) (no (unknown) (unknown) Family/Other (units (u nknown) date) Hypertension unknown) (unknown) (no (unknown) (unknown) Father Hx of (units (unknown) date) migraines unknown) (unknown) (no (unknown) (unknown) Grandmother (units (un known) date) Hypertension unknown) (unknown) (no (unknown) (unknown) HPI (units (unkno wn) date) unknown) (unknown) (no (unknown) (unknown) Hx of migraines (units (unknown) date) unknown) (unknown) (no (unknown) (unknown) Intake (units (unkno wn) date) unknown) (unknown) (no (unknown) (unknown) Intake Note: (units (u nknown) date) unknown) (unknown) (no (unknown) (unknown) Intake performed (units (unknown) date) by: Wendy Davenport unknown) (unknown) (no (unknown) (unknown) Intake- Clincial (units (unknown) date) Staff unknown) (unknown) (no (unknown) (unknown) Loc: [facility] (units (unkno wn) date) unknown) (unknown) (no (unknown) (unknown) Medical History (units (unknown) date) (Reviewed 02/14/22 unknown) @ 12:23 by Sudeep Pelaez MD) (unknown) (no (unknown) (unknown) Medications (units (un known) date) unknown) (unknown) (no (unknown) (unknown) Mother (units (unkno wn) date) Hypertension unknown) (unknown) (no (unknown) (unknown) New (units (unkno wn) date) unknown) (unknown) (no (unknown) (unknown) Office Procedures (units (unknown) date) unknown) (unknown) (no (unknown) (unknown) Orders (units (unkno wn) date) unknown) (unknown) (no (unknown) (unknown) Oxygen Delivery (units (unknown) date) Method room air unknown) (unknown) (no (unknown) (unknown) PFSH (units (unkno wn) date) unknown) (unknown) (no (unknown) (unknown) POC Urine Dip (units ( unknown) date) 03/22/22 R30.0 - unknown) Dysuria (unknown) (no (unknown) (unknown) Patient: (units (unkno wn) date) Fariba Hernandez unknown) MR#: [id number] (unknown) (no (unknown) (unknown) Position (units (unkno wn) date) Sitting unknown) (unknown) (no (unknown) (unknown) Procedure (units (unkn own) date) performed by: unknown) Wendy Davenport (unknown) (no (unknown) (unknown) Pulse 77 (units (un known) date) unknown) (unknown) (no (unknown) (unknown) Pulse Oximetry (%) (units (unknown) date) 99 unknown) (unknown) (no (unknown) (unknown) Pulse Source (units (u nknown) date) Monitor unknown) (unknown) (no (unknown) (unknown) Reason For Visit (units (unknown) date) unknown) (unknown) (no (unknown) (unknown) Recurrent urinary (units (unknown) date) tract infection unknown) (unknown) (no (unknown) (unknown) Residual: post (units (unknown) date) void unknown) (unknown) (no (unknown) (unknown) Respiration 16 (units (unknown) date) unknown) (unknown) (no (unknown) (unknown) Retention of (units (u nknown) date) urine, unspecified unknown) (unknown) (no (unknown) (unknown) Signed By: (units (unk nown) date) unknown) (unknown) (no (unknown) (unknown) Social History (units (unknown) date) (Reviewed 02/14/22 unknown) @ 12:23 by Sudeep Pelaez MD) (unknown) (no (unknown) (unknown) This 26-year-old (units (unknown) date) female returns to unknown) urology clinic today for flexible cystoscopy (unknown) (no (unknown) (unknown) This note may have (units (unknown) date) been all or unknown) partially generated using voice recognition (unknown) (no (unknown) (unknown) Type(s) of (units (unk nown) date) exercise: none unknown) (unknown) (no (unknown) (unknown) Urine Culture (units ( unknown) date) 03/22/22 R30.0 - unknown) Dysuria (unknown) (no (unknown) (unknown) Urine from (units (unk nown) date) yesterday shows no unknown) evidence of infection and she reports the (unknown) (no (unknown) (unknown) Visit Reasons: (units (unknown) date) Flex Cysto review unknown) CT scan (unknown) (no (unknown) (unknown) Vitals (units (unkno wn) date) unknown) (unknown) (no (unknown) (unknown) Voiding (units (unkno wn) date) dysfunction, unknown) feeling of incomplete emptying of bladder, new urinary (unknown) (no (unknown) (unknown) and review of her (units (unknown) date) CT scan related to unknown) a history of recurring urinary tract (unknown) (no (unknown) (unknown) antibiotics that (units (unknown) date) were given unknown) previously got rid of her urinary symptoms and she (unknown) (no (unknown) (unknown) ciprofloxacin (units ( unknown) date) Allergy (Verified unknown) 05/10/22 14:03) (unknown) (no (unknown) (unknown) does not feel she (units (unknown) date) has infection unknown) today. (unknown) (no (unknown) (unknown) have occurred. If (units (unknown) date) there are any unknown) questions, please contact the Medical Records (unknown) (no (unknown) (unknown) hesitancy (units (unkn own) date) unknown) (unknown) (no (unknown) (unknown) infections. Today (units (unknown) date) she reports also unknown) that she has had a couple of episodes now (unknown) (no (unknown) (unknown) marital status: (units (unknown) date) unmarried,single unknown) (unknown) (no (unknown) (unknown) may occur. (units (unk nown) date) Occasional unknown) wrong-word or 'sound-alike' substitutions may have (unknown) (no (unknown) (unknown) occurred due to (units (unknown) date) the inherent unknown) limitations of voice recognition software. Please (unknown) (no (unknown) (unknown) procedure, risks, (units (unknown) date) alternatives unknown) discussed patient questions answered and she (unknown) (no (unknown) (unknown) read the note (units ( unknown) date) carefully and unknown) recognize, using context, where these substitutions (unknown) (no (unknown) (unknown) software. Although (units (unknown) date) every effort is unknown) made to edit content, livestock farm workers errors (unknown) (no (unknown) (unknown) sulfamethoxazole (units (unknown) date) [From Bactrim] unknown) Allergy (Severe, Verified 05/10/22 14:03) (unknown) (no (unknown) (unknown) tamsulosin 0.4 mg (units (unknown) date) PO DAILY 30 caps unknown) 6RF N32.0 - Bladder-neck obstruction, R33.9 - (unknown) (no (unknown) (unknown) tamsulosin 0.4 mg (units (unknown) date) capsule 0.4 mg PO unknown) DAILY #30 caps 05/10/22 [Rx Confirmed (unknown) (no (unknown) (unknown) this is been (units (u nknown) date) painful and she unknown) required some straining of. Flexible cystoscopy, (unknown) (no (unknown) (unknown) trimethoprim [From (units (unknown) date) Bactrim] Allergy unknown) (Severe, Verified 05/10/22 14:03) (unknown) (no (unknown) (unknown) where he has had a (units (unknown) date) very difficult time unknown) starting her urine which she has had but (unknown) (no (unknown) (unknown) wished to proceed. (units (unknown) date) The CT scan shows unknown) no significant genitourinary abnormality. Result panel 15 (unknown) (no (unknown) (unknown) (no value) (units (unk nown) date) unknown) (unknown) (no (unknown) (unknown) Medications: (units (u nknown) date) unknown) (unknown) (no (unknown) (unknown) Orders: (units (unkno wn) date) unknown) (unknown) (no (unknown) (unknown) (no value) (units (unk nown) date) unknown) (unknown) (no (unknown) (unknown) (no value) (units (unk nown) date) unknown) (unknown) (no (unknown) (unknown) 05/10/22 (units (unkno wn) date) unknown) (unknown) (no (unknown) (unknown) 05/10/22 1437 (units ( unknown) date) unknown) (unknown) (no (unknown) (unknown) 14:07 (units (unkno wn) date) unknown) (unknown) (no (unknown) (unknown) [place], [place] (units ( unknown) date) [id number] unknown) (unknown) (no (unknown) (unknown) [facility] (units (unknown) date) unknown) (unknown) (no (unknown) (unknown) Kidney stones (units ( unknown) date) unknown) (unknown) (no (unknown) (unknown) Signed (units (unkno wn) date) unknown) (unknown) (no (unknown) (unknown) UTI (urinary tract (units (unknown) date) infection), unknown) uncomplicated (unknown) (no (unknown) (unknown) Urology Office (units (unknown) date) Visit unknown) (unknown) (no (unknown) (unknown) tongue swelling, (units (unknown) date) hives unknown) (unknown) (no (unknown) (unknown) (no value) (units (unk nown) date) unknown) (unknown) (no (unknown) (unknown) - Retention of (units (unknown) date) urine, unspecified unknown) (unknown) (no (unknown) (unknown) 05/10/22 (units (unkno wn) date) unknown) (unknown) (no (unknown) (unknown) 05/10/22] (units (unkn own) date) unknown) (unknown) (no (unknown) (unknown) 26 y/o F presents (units (unknown) date) to clinic for unknown) flexible cystoscopy. Review CT Scan. (unknown) (no (unknown) (unknown) 122120 (units (unkno wn) date) unknown) (unknown) (no (unknown) (unknown) ?narrowing?. The (units (unknown) date) trigone is well unknown) estrogenized ureteral orifices in normal (unknown) (no (unknown) (unknown) Add'l Complaint: (units (unknown) date) unknown) (unknown) (no (unknown) (unknown) Age/Sex: 26 / F (units (unknown) date) Date of Service: unknown) (unknown) (no (unknown) (unknown) Allergies (units (unkn own) date) unknown) (unknown) (no (unknown) (unknown) Anemia (units (unkno wn) date) unknown) (unknown) (no (unknown) (unknown) Anesthetic: 2% (units (unknown) date) viscous lidocaine unknown) per urethra. (unknown) (no (unknown) (unknown) Assessment + Plan (units (unknown) date) unknown) (unknown) (no (unknown) (unknown) Attending Dr: (units ( unknown) date) Sudeep Pelaez MD unknown) (unknown) (no (unknown) (unknown) BP 102/70 (units (u nknown) date) unknown) (unknown) (no (unknown) (unknown) Billing- Post Void (units (unknown) date) Residual: Post Void unknown) Residual- 12343 (unknown) (no (unknown) (unknown) Bladder volume: (units (unknown) date) PVR = 151ml unknown) (unknown) (no (unknown) (unknown) Blood Pressure (units (unknown) date) Location Lt unknown) brachial (unknown) (no (unknown) (unknown) Chief Complaint (units (unknown) date) unknown) (unknown) (no (unknown) (unknown) Chief Complaint: (units (unknown) date) Recurrent urinary unknown) tract infection (unknown) (no (unknown) (unknown) Chronic UTI (units (un known) date) unknown) (unknown) (no (unknown) (unknown) Complications: (units (unknown) date) None unknown) (unknown) (no (unknown) (unknown) Consent signed: (units (unknown) date) Yes unknown) (unknown) (no (unknown) (unknown) : 1995 (units (unknown) date) Acct:[id number] unknown) (unknown) (no (unknown) (unknown) Dept at (units (unkno wn) date) . unknown) (unknown) (no (unknown) (unknown) Details: (units (unkno wn) date) unknown) (unknown) (no (unknown) (unknown) Disposition: (units (u nknown) date) Patient will be unknown) discharged home: (unknown) (no (unknown) (unknown) Documented By: (units (unknown) date) Sudeep Pelaez MD unknown) 05/10/22 1402 (unknown) (no (unknown) (unknown) Family History (units (unknown) date) (Reviewed 02/14/22 unknown) @ 12:23 by Sudeep Pelaez MD) (unknown) (no (unknown) (unknown) Family/Other (units (u nknown) date) Hypertension unknown) (unknown) (no (unknown) (unknown) Father Hx of (units (unknown) date) migraines unknown) (unknown) (no (unknown) (unknown) Findings: (units (unkn own) date) External genitalia unknown) are normal. Urethral meatus seems somewhat (unknown) (no (unknown) (unknown) Grandmother (units (un known) date) Hypertension unknown) (unknown) (no (unknown) (unknown) HPI (units (unkno wn) date) unknown) (unknown) (no (unknown) (unknown) Hx of migraines (units (unknown) date) unknown) (unknown) (no (unknown) (unknown) Impression: (units (un known) date) Recurring urinary unknown) tract infections that may be could happening on (unknown) (no (unknown) (unknown) Informed consent (units (unknown) date) given: Yes unknown) (unknown) (no (unknown) (unknown) Intake (units (unkno wn) date) unknown) (unknown) (no (unknown) (unknown) Intake Note: (units (u nknown) date) unknown) (unknown) (no (unknown) (unknown) Intake performed (units (unknown) date) by: Wendy Davenport unknown) (unknown) (no (unknown) (unknown) Intake- Clincial (units (unknown) date) Staff unknown) (unknown) (no (unknown) (unknown) Loc: [facility] (units (unkno wn) date) unknown) (unknown) (no (unknown) (unknown) Medical History (units (unknown) date) (Reviewed 02/14/22 unknown) @ 12:23 by Sudeep Pelaez MD) (unknown) (no (unknown) (unknown) Medications (units (un known) date) unknown) (unknown) (no (unknown) (unknown) Mother (units (unkno wn) date) Hypertension unknown) (unknown) (no (unknown) (unknown) New (units (unkno wn) date) unknown) (unknown) (no (unknown) (unknown) Office Procedures (units (unknown) date) unknown) (unknown) (no (unknown) (unknown) Orders (units (unkno wn) date) unknown) (unknown) (no (unknown) (unknown) Oxygen Delivery (units (unknown) date) Method room air unknown) (unknown) (no (unknown) (unknown) PFSH (units (unkno wn) date) unknown) (unknown) (no (unknown) (unknown) POC Urine Dip (units ( unknown) date) 03/22/22 R30.0 - unknown) Dysuria (unknown) (no (unknown) (unknown) Patient: (units (unkno wn) date) Fariba Hernandez unknown) MR#: [id number] (unknown) (no (unknown) (unknown) Plan: Trial of (units (unknown) date) tamsulosin to see unknown) if this does not improve flow when emptying (unknown) (no (unknown) (unknown) Position (units (unkno wn) date) Sitting unknown) (unknown) (no (unknown) (unknown) Postoperative (units ( unknown) date) diagnosis: unknown) Recurrent urinary tract infections, question of (unknown) (no (unknown) (unknown) Preoperative (units (u nknown) date) diagnosis: unknown) Recurring urinary tract infections (unknown) (no (unknown) (unknown) Procedure Notes: (units (unknown) date) unknown) (unknown) (no (unknown) (unknown) Procedure Notes: (units (unknown) date) Flexible cystoscopy unknown) note: (unknown) (no (unknown) (unknown) Procedure in (units (u nknown) date) detail: After unknown) informed consent was obtained, the patient was (unknown) (no (unknown) (unknown) Procedure (units (unkn own) date) performed by: unknown) Wendy Davenport (unknown) (no (unknown) (unknown) Procedure (units (unkn own) date) performed: Flexible unknown) cystoscopy (unknown) (no (unknown) (unknown) Pulse 77 (units (un known) date) unknown) (unknown) (no (unknown) (unknown) Pulse Oximetry (%) (units (unknown) date) 99 unknown) (unknown) (no (unknown) (unknown) Pulse Source (units (u nknown) date) Monitor unknown) (unknown) (no (unknown) (unknown) Reason For Visit (units (unknown) date) unknown) (unknown) (no (unknown) (unknown) Recurrent urinary (units (unknown) date) tract infection unknown) (unknown) (no (unknown) (unknown) Residual: post (units (unknown) date) void unknown) (unknown) (no (unknown) (unknown) Respiration 16 (units (unknown) date) unknown) (unknown) (no (unknown) (unknown) Signed By: (units (unk nown) date) <Electronically unknown) signed by Sudeep Pelaez MD> (unknown) (no (unknown) (unknown) Social History (units (unknown) date) (Reviewed 02/14/22 unknown) @ 12:23 by Sudeep Pelaez MD) (unknown) (no (unknown) (unknown) Surgeon: Sudeep Hughes (units (unknown) date) [place] VELÁZQUEZ unknown) (unknown) (no (unknown) (unknown) This 26-year-old (units (unknown) date) female returns to unknown) urology clinic today for flexible cystoscopy (unknown) (no (unknown) (unknown) This note may have (units (unknown) date) been all or unknown) partially generated using voice recognition (unknown) (no (unknown) (unknown) Type(s) of (units (unk nown) date) exercise: none unknown) (unknown) (no (unknown) (unknown) Urine Culture (units ( unknown) date) 03/22/22 R30.0 - unknown) Dysuria (unknown) (no (unknown) (unknown) Urine from (units (unk nown) date) yesterday shows no unknown) evidence of infection and she reports the (unknown) (no (unknown) (unknown) Visit Reasons: (units (unknown) date) Flex Cysto review unknown) CT scan (unknown) (no (unknown) (unknown) Vitals (units (unkno wn) date) unknown) (unknown) (no (unknown) (unknown) Voiding (units (unkno wn) date) dysfunction, unknown) feeling of incomplete emptying of bladder, new urinary (unknown) (no (unknown) (unknown) and may go long (units (unknown) date) wait forward unknown) eliminating recurring urinary tract infections. (unknown) (no (unknown) (unknown) and review of her (units (unknown) date) CT scan related to unknown) a history of recurring urinary tract (unknown) (no (unknown) (unknown) antibiotics that (units (unknown) date) were given unknown) previously got rid of her urinary symptoms and she (unknown) (no (unknown) (unknown) approximately 200. (units (unknown) date) unknown) (unknown) (no (unknown) (unknown) as the procedure (units (unknown) date) proceeded. unknown) (unknown) (no (unknown) (unknown) blockade so will (units (unknown) date) give her a trial of unknown) tamsulosin 0.4 mg per day and have her (unknown) (no (unknown) (unknown) ciprofloxacin (units ( unknown) date) Allergy (Verified unknown) 05/10/22 14:03) (unknown) (no (unknown) (unknown) contraction was (units (unknown) date) noted. Patient's unknown) postvoid residual was 151 after voiding (unknown) (no (unknown) (unknown) cystoscope was (units (unknown) date) inserted in unknown) flexible cystoscopy performed including a retroflex (unknown) (no (unknown) (unknown) does not feel she (units (unknown) date) has infection unknown) today. (unknown) (no (unknown) (unknown) draped in sterile (units (unknown) date) fashion for unknown) flexible cystoscopy. 2% viscous lidocaine was (unknown) (no (unknown) (unknown) have occurred. If (units (unknown) date) there are any unknown) questions, please contact the Medical Records (unknown) (no (unknown) (unknown) hesitancy (units (unkn own) date) unknown) (unknown) (no (unknown) (unknown) identified and (units (unknown) date) brought to the unknown) cystoscopy suite. Patient was then placed in a (unknown) (no (unknown) (unknown) infections. Today (units (unknown) date) she reports also unknown) that she has had a couple of episodes now (unknown) (no (unknown) (unknown) instilled in the (units (unknown) date) urethra and time unknown) allowed for the block set up. Flexible (unknown) (no (unknown) (unknown) maneuver. The (units (unknown) date) cystoscope was unknown) removed there were no complications and the (unknown) (no (unknown) (unknown) marital status: (units (unknown) date) unmarried,single unknown) (unknown) (no (unknown) (unknown) may occur. (units (unk nown) date) Occasional unknown) wrong-word or 'sound-alike' substitutions may have (unknown) (no (unknown) (unknown) medication (units (unk nown) date) potential side unknown) effects were discussed the patient. (unknown) (no (unknown) (unknown) narrowed and there (units (unknown) date) is some resistance unknown) in the mid urethra to passing of the (unknown) (no (unknown) (unknown) occurred due to (units (unknown) date) the inherent unknown) limitations of voice recognition software. Please (unknown) (no (unknown) (unknown) patient tolerated (units (unknown) date) the procedure well. unknown) Findings were discussed with the patient (unknown) (no (unknown) (unknown) position with (units ( unknown) date) clear efflux. unknown) There is a preponderance of flocculent debris (unknown) (no (unknown) (unknown) procedure, risks, (units (unknown) date) alternatives unknown) discussed patient questions answered and she (unknown) (no (unknown) (unknown) read the note (units ( unknown) date) carefully and unknown) recognize, using context, where these substitutions (unknown) (no (unknown) (unknown) resistant to (units (u nknown) date) filling of though a unknown) cannot say that an uninhibited detrusor (unknown) (no (unknown) (unknown) return to clinic (units (unknown) date) in 2 weeks to unknown) re-evaluate check postvoid residual etc. the (unknown) (no (unknown) (unknown) scope. No (units (unk nown) date) definitive unknown) stricture is noted but there does appear to be (unknown) (no (unknown) (unknown) software. Although (units (unknown) date) every effort is unknown) made to edit content, livestock farm workers errors (unknown) (no (unknown) (unknown) sulfamethoxazole (units (unknown) date) [From Bactrim] unknown) Allergy (Severe, Verified 05/10/22 14:03) (unknown) (no (unknown) (unknown) supine position on (units (unknown) date) the table. She was unknown) prepped with a sterilizing prepped and (unknown) (no (unknown) (unknown) tamsulosin 0.4 mg (units (unknown) date) PO DAILY 30 caps unknown) 6RF N32.0 - Bladder-neck obstruction, R33.9 (unknown) (no (unknown) (unknown) tamsulosin 0.4 mg (units (unknown) date) capsule 0.4 mg PO unknown) DAILY #30 caps 05/10/22 [Rx Confirmed (unknown) (no (unknown) (unknown) the basis of (units (u nknown) date) incomplete emptying unknown) of the bladder patient seeming to have a very (unknown) (no (unknown) (unknown) this is been (units (u nknown) date) painful and she unknown) required some straining of. Flexible cystoscopy, (unknown) (no (unknown) (unknown) tight urethra and (units (unknown) date) or bladder neck. unknown) And I think she may benefit from some alpha (unknown) (no (unknown) (unknown) trimethoprim [From (units (unknown) date) Bactrim] Allergy unknown) (Severe, Verified 05/10/22 14:03) (unknown) (no (unknown) (unknown) urethral (units (unkno wn) date) narrowing, unknown) incomplete emptying of bladder (unknown) (no (unknown) (unknown) where he has had a (units (unknown) date) very difficult time unknown) starting her urine which she has had but (unknown) (no (unknown) (unknown) wished to proceed. (units (unknown) date) The CT scan shows unknown) no significant genitourinary abnormality. (unknown) (no (unknown) (unknown) within the (units (unk nown) date) bladder. And there unknown) is severe trabeculation. The bladder was also Result panel 16 (unknown) (no (unknown) (unknown) (no value) (units (unk nown) date) unknown) (unknown) (no (unknown) (unknown) Orders: (units (unkno wn) date) unknown) (unknown) (no (unknown) (unknown) (no value) (units (unk nown) date) unknown) (unknown) (no (unknown) (unknown) (no value) (units (unk nown) date) unknown) (unknown) (no (unknown) (unknown) [place] (units ( unknown) date) [id number] unknown) (unknown) (no (unknown) (unknown) Cancelled (units (unkn own) date) unknown) (unknown) (no (unknown) (unknown) [facility] (units (unknown) date) unknown) (unknown) (no (unknown) (unknown) Kidney stones (units ( unknown) date) unknown) (unknown) (no (unknown) (unknown) UTI (urinary tract (units (unknown) date) infection), unknown) uncomplicated (unknown) (no (unknown) (unknown) Urology Office (units (unknown) date) Visit unknown) (unknown) (no (unknown) (unknown) tongue swelling, (units (unknown) date) hives unknown) (unknown) (no (unknown) (unknown) (no value) (units (unk nown) date) unknown) (unknown) (no (unknown) (unknown) 05/10/22 (units (unkno wn) date) unknown) (unknown) (no (unknown) (unknown) 26 y/o F presents (units (unknown) date) to clinic for unknown) flexible cystoscopy. Review CT Scan. (unknown) (no (unknown) (unknown) [id number] (units (unkno wn) date) unknown) (unknown) (no (unknown) (unknown) Age/Sex: 26 / F (units (unknown) date) Date of Service: unknown) (unknown) (no (unknown) (unknown) Allergies (units (unkn own) date) unknown) (unknown) (no (unknown) (unknown) Anemia (units (unkno wn) date) unknown) (unknown) (no (unknown) (unknown) Assessment + Plan (units (unknown) date) unknown) (unknown) (no (unknown) (unknown) Attending Dr: (units ( unknown) date) Sudeep Pelaez MD unknown) (unknown) (no (unknown) (unknown) Billing- Post Void (units (unknown) date) Residual: Post Void unknown) Residual- 52236 (unknown) (no (unknown) (unknown) Bladder volume: (units (unknown) date) PVR = unknown) (unknown) (no (unknown) (unknown) Chronic UTI (units (un known) date) unknown) (unknown) (no (unknown) (unknown) : 1995 (units (unknown) date) Acct:[id number] unknown) (unknown) (no (unknown) (unknown) Dept at (units (unkno wn) date) . unknown) (unknown) (no (unknown) (unknown) Documented By: (units (unknown) date) Sudeep Pelaez MD unknown) 03/22/22 1240 (unknown) (no (unknown) (unknown) Family History (units (unknown) date) (Reviewed 02/14/22 unknown) @ 12:23 by Sudeep Pelaez MD) (unknown) (no (unknown) (unknown) Family/Other (units (u nknown) date) Hypertension unknown) (unknown) (no (unknown) (unknown) Father Hx of (units (unknown) date) migraines unknown) (unknown) (no (unknown) (unknown) Grandmother (units (un known) date) Hypertension unknown) (unknown) (no (unknown) (unknown) Hx of migraines (units (unknown) date) unknown) (unknown) (no (unknown) (unknown) Intake (units (unkno wn) date) unknown) (unknown) (no (unknown) (unknown) Intake Note: (units (u nknown) date) unknown) (unknown) (no (unknown) (unknown) Intake performed (units (unknown) date) by: Wendy Davenport unknown) (unknown) (no (unknown) (unknown) Intake- Clincial (units (unknown) date) Staff unknown) (unknown) (no (unknown) (unknown) Loc: [facility] (units (unkno wn) date) unknown) (unknown) (no (unknown) (unknown) Medical History (units (unknown) date) (Reviewed 02/14/22 unknown) @ 12:23 by Sudeep Pelaez MD) (unknown) (no (unknown) (unknown) Mother (units (unkno wn) date) Hypertension unknown) (unknown) (no (unknown) (unknown) Office Procedures (units (unknown) date) unknown) (unknown) (no (unknown) (unknown) Orders (units (unkno wn) date) unknown) (unknown) (no (unknown) (unknown) PFSH (units (unkno wn) date) unknown) (unknown) (no (unknown) (unknown) POC Urine Dip (units ( unknown) date) 03/22/22 R30.0 - unknown) Dysuria (unknown) (no (unknown) (unknown) Patient: (units (unkno wn) date) Fariba Hernandez unknown) MR#: [id number] (unknown) (no (unknown) (unknown) Procedure (units (unkn own) date) performed by: unknown) Wendy Davenport (unknown) (no (unknown) (unknown) Reason For Visit (units (unknown) date) unknown) (unknown) (no (unknown) (unknown) Recurrent urinary (units (unknown) date) tract infection unknown) (unknown) (no (unknown) (unknown) Residual: post (units (unknown) date) void unknown) (unknown) (no (unknown) (unknown) Signed By: (units (unk nown) date) unknown) (unknown) (no (unknown) (unknown) Social History (units (unknown) date) (Reviewed 02/14/22 unknown) @ 12:23 by Sudeep Pelaez MD) (unknown) (no (unknown) (unknown) This note may have (units (unknown) date) been all or unknown) partially generated using voice recognition (unknown) (no (unknown) (unknown) Type(s) of (units (unk nown) date) exercise: none unknown) (unknown) (no (unknown) (unknown) Urine Culture (units ( unknown) date) 03/22/22 R30.0 - unknown) Dysuria (unknown) (no (unknown) (unknown) Visit Reasons: (units (unknown) date) Flex Cysto review unknown) CT scan - check in at noon (unknown) (no (unknown) (unknown) ciprofloxacin (units ( unknown) date) Allergy (Verified unknown) 02/15/22 11:27) (unknown) (no (unknown) (unknown) have occurred. If (units (unknown) date) there are any unknown) questions, please contact the Medical Records (unknown) (no (unknown) (unknown) marital status: (units (unknown) date) unmarried,single unknown) (unknown) (no (unknown) (unknown) may occur. (units (unk nown) date) Occasional unknown) wrong-word or 'sound-alike' substitutions may have (unknown) (no (unknown) (unknown) occurred due to (units (unknown) date) the inherent unknown) limitations of voice recognition software. Please (unknown) (no (unknown) (unknown) read the note (units ( unknown) date) carefully and unknown) recognize, using context, where these substitutions (unknown) (no (unknown) (unknown) software. Although (units (unknown) date) every effort is unknown) made to edit content, livestock farm workers errors (unknown) (no (unknown) (unknown) sulfamethoxazole (units (unknown) date) [From Bactrim] unknown) Allergy (Severe, Verified 02/15/22 11:27) (unknown) (no (unknown) (unknown) trimethoprim [From (units (unknown) date) Bactrim] Allergy unknown) (Severe, Verified 02/15/22 11:27) Social History No information. Vital Signs date measurement value units [id number]+0000 BMI BMI 22.4 kg/m2 51168967188653+0000 BP_diastolic BP_diastolic 70 mm[H g] 92705754915747+0000 BP_systolic BP_systolic 102 mm[Hg] 25190584826470+0000 heart_rate heart_rate 72 /min 69656417018412+0000 height_metric height_metric 149.86 cm [id number]+0000 height_standard height_standard 59 in +0000 respiration_rate respiration_rate 16 /min 31700831128367+0000 weight_metric weight_metric 50.34 kg +0000 weight_standard weight_standard 110.98 lb 35300786370909+0000 BMI BMI 24.61 kg/m2 59353138859338+0000 BP_diastolic BP_diastolic 66 mm[H g] +0000 BP_systolic BP_systolic 104 mm[Hg] +0000 heart_rate heart_rate 88 /min 70503742677984+0000 height_metric height_metric 149.86 cm +0000 height_standard height_standard 59 in +0000 respiration_rate respiration_rate 14 /min 12567787422416+0000 temperature_metric temperature_metric 36.89 C 86983399984114+0000 temperature_standard temperature_standard 9 8.4 F +0000 weight_metric weight_metric 55.07 kg +0000 weight_standard weight_standard 121.4 lb +0000 BP_diastolic BP_diastolic 70 mm[H g] +0000 BP_systolic BP_systolic 102 mm[Hg] +0000 heart_rate heart_rate 77 /min +0000 respiration_rate respiration_rate 16 /min
[2022-05-11] MEDS ORDERED: predniSONE 20 MG TABLET PO STA (15:30)
--- NOTE | 2022-05-11 15:32 | ED Physician Documentation ---
PD HPI SKIN - Stated complaint Stated Complaint: SWOLLEN TONGUE AND THROAT - Chief complaint Chief Complaint: Allergic Rx - History obtained from History obtained from: Patient (26-year-old woman was allergic to Bactrim. She received a single dose. 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 : Chronic bladder infection HEENT: None Psych: None Musculoskeletal: None Derm: None - Past Surgical History Past Surgical History: Yes General: Hiatal hernia repair - Present Medications Home Medications: Ambulatory Orders Medication Instructions Recorded Confirmed Phenazopyridine HCl [Pyridium] 100 mg PO TID PRN #15 tablet 12/25/21 02/20/22 Amoxicillin 500 mg PO TID 02/20/22 02/20/22 Fluconazole [Diflucan] 1 tablet PO ONCE 1 Days #1 tablet 02/20/22 predniSONE [Deltasone] 40 mg PO DAILY 2 Days #4 tablet 05/11/22 - Allergies Allergies/Adverse Reactions: Allergies Allergy/AdvReac Type Severity Reaction Status Date / Time ciprofloxacin [From Cipro] Allergy Edema Verified 05/11/22 14:49 sulfamethoxazole Allergy Anaphylaxis Verified 05/11/22 14:49 [From Bactrim] trimethoprim [From Bactrim] Allergy Anaphylaxis Verified 05/11/22 14:49 - Social History Does the pt smoke?: No Smoking Status: Never smoker Does the pt drink ETOH?: Yes Does the pt have substance abuse?: No - Immunizations Immunizations are current?: Yes - POLST Patient has POLST: No PD ED PE NORMAL - Vitals Vital signs reviewed: Yes - General General: Alert and oriented X 3, No acute distress - HEENT HEENT: Other (She has mild redness and swelling to the anterior part of the tongue, lips appear normal and the rest of the oropharynx appears normal. Voice and phonation are normal.) - Neuro Neuro: Alert and oriented X 3, Normal speech Results - Vitals Vitals: Vital Signs - 24 hr 05/11/22 14:44 Temperature 36.4 C L Heart Rate 75 Respiratory 16 Rate Blood Pressure 108/63 O2 Saturation 100 Oxygen O2 Source Room air Departure - Departure Disposition: 01 Home, Self Care Clinical Impression: Medication reaction Qualifiers: Encounter type: initial encounter Qualified Code(s): T50.905A - Adverse effect of unspecified drugs, medicaments and biological substances, initial encounter Condition: Good Record reviewed to determine appropriate education?: Yes Instructions: ED Drug React Allergic Prescriptions: predniSONE [Deltasone] 40 mg PO DAILY 2 Days #4 tablet Comments: Avoid sulfa drugs in the future. Return for new or worsening symptoms. Follow- up with your primary care physician, next available appointment.
== END 2022-05-11 15:38 | disposition home or self-care (01) ==
LOC: ED 14:40
DX: R22.0 Localized swelling, mass and lump, head (principal); T50.905A Adverse effect of unspecified drugs, medicaments and biological substances, initial encounter
CPT/HCPCS: 99282; J7512

== ENCOUNTER 2022-06-06 22:50 | Emergency (ER) | payer OTHER ==
--- OUTSIDE RECORDS SUMMARY | 2022-06-06 23:15 | EXTERNAL MEDICAL SUMMARY RPT | Continuity of Care Document ---
:1995 Author Organization [facility] Address [address] [id number] Phone Allergies No information. Encounters No information. Functional Status No information. Immunizations No information. Medications date description facility [id number]+0000 ondansetron hcl All 71817559588326+0000 phenazopyridine All 39458231860718+0000 cefdinir 300 MG Oral Capsule [facility] 72643653886057+0000 nitrofurantoin monohyd/m-cryst All 02550050333360+0000 nitrofurantoin monohyd/m-cryst All 72260143867251+0000 phenazopyridine All 70566161525268+0000 Tamsulosin hydrochloride 0.4 MG Oral C [facility] Problems No information. Procedures date description facility [id number]+0000 [facility] 94383522606547+0000 [facility] 25766523872767+0000 POC URINALYSIS DIP All 02490794415514+0000 POC HCG All Results/Labs test date author facility value unit interpret ation Result panel 1 (unknown) (no (unknown) (unknown) (no value) (units (unk nown) date) unknown) (unknown) (no (unknown) (unknown) Orders: (units (unkno wn) date) unknown) (unknown) (no (unknown) (unknown) (no value) (units (unk nown) date) unknown) (unknown) (no (unknown) (unknown) KATTY Walton (units ( unknown) date) [id number] unknown) (unknown) (no (unknown) (unknown) Draft (units [...] Review CT Scan. (unknown) (no (unknown) (unknown) [id number] (units (unkno wn) date) unknown) (unknown) (no [...] (unknown) date) Residual: Post Void unknown) Residual- 19910 (unknown) (no (unknown) (unknown) Bladder volume: (units (unknown) date) PVR = unknown) (unknown) (no (unknown) (unknown) Chronic UTI (units (un known) date) unknown) (unknown) (no (unknown) (unknown) : 1995 (units (unknown) date) Acct:[id number] unknown) (unknown) (no (unknown) (unknown) Dept at [...] (unknown) (unknown) Patient: (units (unkno wn) date) Roosevelt Hernandez unknown) MR#: [id number] (unknown) (no (unknown) [...] effort is unknown) made to edit content, ribbon winder errors (unknown) (no (unknown) (unknown) sulfamethoxazole (units (unknown) date) [From Bactrim] unknown) Allergy (Severe, Verified 02/15/22 11:27) (unknown) (no (unknown) (unknown) trimethoprim [From (units (unknown) date) Bactrim] Allergy unknown) (Severe, Verified 02/15/22 11:27) Result panel 2 (unknown) (no (unknown) (unknown) (no value) (units (unk nown) date) unknown) (unknown) (no (unknown) (unknown) Orders: (units (unkno wn) date) unknown) (unknown) (no (unknown) (unknown) (no value) (units (unk nown) date) unknown) (unknown) (no (unknown) (unknown) (no value) (units (unk nown) date) unknown) (unknown) (no (unknown) (unknown) [place], [place] (units ( unknown) date) [address] unknown) (unknown) (no (unknown) (unknown) Draft (units [...] (unknown) (unknown) Urine Specific (units (unknown) date) [place] 1.025 unknown) Last Edit by Wendy Davenport RN on 03/22/22 12 (unknown) (no (unknown) (unknown) Urine Urobilinogen (units (unknown) date) - 0.2 mg/dL unknown) Last Edit by Wendy Davenport RN on (unknown) (no (unknown) (unknown) Urine pH 6.0 (units (unknown) date) Last Edit by Wendy unknownNikki Davenport RN on 03/22/22 12:53 (unknown) (no [...] wn) date) unknown) (unknown) (no (unknown) (unknown) [id number] (units (unkno wn) date) unknown) (unknown) (no [...] (unknown) date) Residual: Post Void unknown) Residual- 12159 (unknown) (no (unknown) (unknown) Bladder volume: (units (unknown) date) PVR = unknown) (unknown) (no (unknown) (unknown) Chronic UTI (units (un known) date) unknown) (unknown) (no (unknown) (unknown) : 1995 (units (unknown) date) Acct:[id number] unknown) (unknown) (no (unknown) (unknown) Dept at [...] (unknown) (unknown) Patient: (units (unkno wn) date) Roosevelt Hernandez unknown) MR#: [id number] (unknown) (no (unknown) [...] effort is unknown) made to edit content, ribbon winder errors (unknown) (no (unknown) (unknown) sulfamethoxazole (units (unknown) date) [From Bactrim] unknown) Allergy (Severe, Verified 02/15/22 11:27) (unknown) (no (unknown) (unknown) trimethoprim [From (units (unknown) date) Bactrim] Allergy unknown) (Severe, Verified 02/15/22 11:27) Result panel 3 (unknown) (no (unknown) (unknown) (no value) (units (unk nown) date) unknown) (unknown) (no (unknown) (unknown) Orders: (units (unkno wn) date) unknown) (unknown) (no (unknown) (unknown) (no value) (units (unk nown) date) unknown) (unknown) (no (unknown) (unknown) (no value) (units (unk nown) date) unknown) (unknown) (no (unknown) (unknown) [place], [place] (units ( unknown) date) [address] unknown) (unknown) (no (unknown) (unknown) Draft (units (unkno wn) date) unknown) (unknown) (no (unknown) (unknown) [facility] (units (unknown) date) unknown) (unknown) (no [...] Review CT Scan. (unknown) (no (unknown) (unknown) [id number] (units (unkno wn) date) unknown) (unknown) (no [...] (unknown) date) Residual: Post Void unknown) Residual- 76291 (unknown) (no (unknown) (unknown) Bladder volume: (units (unknown) date) PVR = unknown) (unknown) (no (unknown) (unknown) Chronic UTI (units (un known) date) unknown) (unknown) (no (unknown) (unknown) : 1995 (units (unknown) date) Acct:[id number] unknown) (unknown) (no (unknown) (unknown) Dept at [...] (unknown) (unknown) Patient: (units (unkno wn) date) Roosevelt Hernandez unknown) MR#: [id number] (unknown) (no (unknown) [...] effort is unknown) made to edit content, ribbon winder errors (unknown) (no (unknown) (unknown) sulfamethoxazole (units (unknown) date) [From Bactrim] unknown) Allergy (Severe, Verified 02/15/22 11:27) (unknown) (no (unknown) (unknown) trimethoprim [From (units (unknown) date) Bactrim] Allergy unknown) (Severe, Verified 02/15/22 11:27) Result panel 4 (unknown) (no (unknown) (unknown) >100,000 CFU/ml (unkno wn) date) (unknown) (no (unknown) (unknown) GenericComposite[ (units (unknown) date) GNB^Gram negative unknown) bacilli] (unknown) (no (unknown) (unknown) Identification (units (unknown) date) and Sensitivity to unknown) Follow Result panel 5 (unknown) (no date) (unknown) (unknown) (no value) [...] osite[ENTAER unknown) ^Enterobacte r aerogenes] Result panel 6 (unknown) (no (unknown) (unknown) (no value) (units (unk nown) date) unknown) (unknown) (no (unknown) (unknown) Orders: (units (unkno wn) date) unknown) (unknown) (no (unknown) (unknown) (no value) (units (unk nown) date) unknown) (unknown) (no (unknown) (unknown) (no value) (units (unk nown) date) unknown) (unknown) (no (unknown) (unknown) [place], [place] (units ( unknown) date) [address] unknown) (unknown) (no (unknown) (unknown) Draft (units (unkno wn) date) unknown) (unknown) (no (unknown) (unknown) [facility] (units (unknown) date) unknown) (unknown) (no [...] Review CT Scan. (unknown) (no (unknown) (unknown) 248009 (units (unkno wn) date) unknown) (unknown) (no [...] (unknown) date) Residual: Post Void unknown) Residual- 71902 (unknown) (no (unknown) (unknown) Bladder volume: (units (unknown) date) PVR = unknown) (unknown) (no (unknown) (unknown) Chronic UTI (units (un known) date) unknown) (unknown) (no (unknown) (unknown) : 1995 (units (unknown) date) Acct:[id number] unknown) (unknown) (no (unknown) (unknown) Dept at [...] (unknown) (unknown) Patient: (units (unkno wn) date) Roosevelt Hernandez unknown) MR#: [id number] (unknown) (no (unknown) [...] (Reviewed 02/14/22 unknown) @ 12:23 by Sudeep Peleaz MD) (unknown) (no (unknown) (unknown) This note [...] effort is unknown) made to edit content, ribbon winder errors (unknown) (no (unknown) (unknown) sulfamethoxazole (units (unknown) date) [From Bactrim] unknown) Allergy (Severe, Verified 02/15/22 11:27) (unknown) (no (unknown) (unknown) trimethoprim [From (units (unknown) date) Bactrim] Allergy unknown) (Severe, Verified 02/15/22 11:27) Result panel 7 (unknown) (no (unknown) (unknown) (no value) (units [...] wn) date) unknown) (unknown) (no (unknown) (unknown) [place], [place] (units ( unknown) date) [address] unknown) (unknown) (no (unknown) (unknown) Draft (units (unkno wn) date) unknown) (unknown) (no (unknown) (unknown) [facility] (units (unknown) date) unknown) (unknown) (no [...] Review CT Scan. (unknown) (no (unknown) (unknown) 479472 (units (unkno wn) date) unknown) (unknown) (no [...] (unknown) date) Residual: Post Void unknown) Residual- 30995 (unknown) (no (unknown) (unknown) Bladder volume: (units [...] (unknown) (unknown) : 1995 (units (unknown) date) Acct:[id number] unknown) (unknown) (no (unknown) (unknown) Dept at [...] (unknown) (unknown) Patient: (units (unkno wn) date) Roosevelt Hernandez unknown) MR#: [id number] (unknown) (no (unknown) [...] effort is unknown) made to edit content, ribbon winder errors (unknown) (no (unknown) (unknown) sulfamethoxazole (units [...] unknown) no significant genitourinary abnormality. Result panel 8 (unknown) (no (unknown) (unknown) [...] date) unknown) (unknown) (no (unknown) (unknown) [place] (units ( unknown) date) [address] unknown) (unknown) (no (unknown) (unknown) [facility] (units (unknown) date) unknown) (unknown) (no [...] Review CT Scan. (unknown) (no (unknown) (unknown) [id number] (units (unkno wn) date) unknown) (unknown) (no [...] (unknown) date) Residual: Post Void unknown) Residual- 37961 (unknown) (no (unknown) (unknown) Bladder volume: (units [...] (unknown) (unknown) : 1995 (units (unknown) date) Acct:[id number] unknown) (unknown) (no (unknown) (unknown) Dept at [...] (unknown) (unknown) Patient: (units (unkno wn) date) Roosevelt Hernandez unknown) MR#: [id number] (unknown) (no (unknown) [...] effort is unknown) made to edit content, ribbon winder errors (unknown) (no (unknown) (unknown) sulfamethoxazole (units [...] trabeculation. The bladder was also Result panel 9 (unknown) (no (unknown) (unknown) (no value) (units (unk nown) date) unknown) (unknown) (no (unknown) (unknown) Orders: (units (unkno wn) date) unknown) (unknown) (no (unknown) (unknown) (no value) (units (unk nown) date) unknown) (unknown) (no (unknown) (unknown) (no value) (units (unk nown) date) unknown) (unknown) (no (unknown) (unknown) [place], [place] (units ( unknown) date) [address] unknown) (unknown) (no (unknown) (unknown) Cancelled (units (unkn own) date) unknown) (unknown) (no (unknown) (unknown) Island [...] Review CT Scan. (unknown) (no (unknown) (unknown) [id number] (units (unkno wn) date) unknown) (unknown) (no [...] (unknown) date) Residual: Post Void unknown) Residual- 65281 (unknown) (no (unknown) (unknown) Bladder volume: (units (unknown) date) PVR = unknown) (unknown) (no (unknown) (unknown) Chronic UTI (units (un known) date) unknown) (unknown) (no (unknown) (unknown) : 1995 (units (unknown) date) Acct:[id number] unknown) (unknown) (no (unknown) (unknown) Dept at [...] (unknown) (unknown) Patient: (units (unkno wn) date) Roosevelt Hernandez unknown) MR#: [id number] (unknown) (no (unknown) [...] effort is unknown) made to edit content, ribbon winder errors (unknown) (no (unknown) (unknown) sulfamethoxazole (units (unknown) date) [From Bactrim] unknown) Allergy (Severe, Verified 02/15/22 11:27) (unknown) (no (unknown) (unknown) trimethoprim [From (units (unknown) date) Bactrim] Allergy unknown) (Severe, Verified 02/15/22 11:27) Social History No information. Vital Signs date measurement value units +0000 BMI BMI 24.61 kg/m2 69736770820730+0000 BP_diastolic BP_diastolic 66 mm[H g] 79902530329903+0000 BP_systolic BP_systolic 104 mm[Hg] 02552476019832+0000 heart_rate heart_rate 88 /min 47441664295197+0000 height_metric height_metric 149.86 cm 10144224014982+0000 height_standard height_standard 59 in 22545489375500+0000 respiration_rate respiration_rate 14 /min 18649682120001+0000 temperature_metric temperature_metric 36.89 C 14878580086916+0000 temperature_standard temperature_standard 9 8.4 F 04699930831815+0000 weight_metric weight_metric 55.07 kg 36595429897277+0000 weight_standard weight_standard 121.4 lb 97693296938311+0000 BP_diastolic BP_diastolic 70 mm[H g] 58448738901740+0000 BP_systolic BP_systolic 102 mm[Hg] +0000 heart_rate heart_rate 77 /min +0000 respiration_rate respiration_rate 16 /min
[2022-06-07 01:57] LABS: BILIRUBIN,URINE NEGATIVE (NEGATIVE); CLARITY,URINE SL. CLOUDY (CLEAR); GLUCOSE, URINE (UA) NEGATIVE (NEGATIVE); KETONES,URINE (UA) NEGATIVE (NEGATIVE); LEUKOCYTE ESTERASE, URINE SMALL (NEGATIVE); NITRITE,URINE POSITIVE (NEGATIVE); OCCULT BLOOD,URINE NEGATIVE (NEGATIVE); PH,URINE 7.5 PH (5.0-7.5); PROTEIN,URINE NEGATIVE (NEGATIVE); UROBILINOGEN,URINE 0.2 (NORMAL) E.U./dL (NORMAL)
[2022-06-07 02:00] LABS: HCG UR QUAL NEGATIVE
[2022-06-07 02:07] LABS: AMORPHOUS SEDIMENT,UR Few /LPF; BACTERIA,URINE Moderate /HPF (None Seen); RBC,URINE None Seen /HPF (0-5); SQUAMOUS EPITHELIAL CELL,UR FEW Squamous (<= Few)
[2022-06-07] MEDS ORDERED: NITROFURANTOIN MACRO 100 MG CAPSULE PO STA (02:45)
--- NOTE | 2022-06-07 02:47 | ED Physician Documentation ---
PD HPI FEMALE - Stated complaint Stated Complaint: FEMALE - Chief complaint Chief Complaint: Abd Pain - History obtained from History obtained from: Patient - Additional information Additional information: Patient is a 26-year-old female with a history of chronic UTIs and ovarian cyst presenting for evaluation of intermittent pelvic pain over the course of the last month. She was recently told that a previous cyst was no longer there but she is continue to have intermittent episodes of cramping in the lower abdomen.She reached out to her primary care doctor through the [facility] for an appointment and that they have not yet been able to schedule her ultrasound. She was told that if her pain is getting worse and she should present to the emergency department. She reports that she feels like it is getting worse over the last few days with at times of more sharp pains. Nothing seems to trigger these episodes. Currently she is not having much pain. She is also reported having white to yellow vaginal discharge for the last week as well as suprapubic tenderness. She does have a history of chronic UTIs and follows with a urologist in [place]. She denies fever, chest pain, trouble breathing, upper abdominal pain, vomiting, flank pain. She denies concern for sexually transmitted infection or . Review of Systems Constitutional: denies: Fever Nose: denies: Congestion Cardiac: denies: Chest pain / pressure Respiratory: denies: Dyspnea, Cough GI: denies: Abdominal Pain, Vomiting : reports: Discharge. 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 : Chronic bladder infection HEENT: None Psych: None Musculoskeletal: None Derm: None - Past Surgical History Past Surgical History: Yes General: Hiatal hernia repair - Present Medications Home Medications: Ambulatory Orders Medication Instructions Recorded Confirmed Phenazopyridine HCl [Pyridium] 100 mg PO TID PRN #15 tablet 12/25/21 02/20/22 Amoxicillin 500 mg PO TID 02/20/22 02/20/22 Fluconazole [Diflucan] 1 tablet PO ONCE 1 Days #1 tablet 02/20/22 predniSONE [Deltasone] 40 mg PO DAILY 2 Days #4 tablet 05/11/22 Nitrofurantoin [Macrobid] 1 cap PO BID #10 cap 06/07/22 - Allergies Allergies/Adverse Reactions: Allergies Allergy/AdvReac Type Severity Reaction Status Date / Time ciprofloxacin [From Cipro] Allergy Edema Verified 06/06/22 23:09 sulfamethoxazole Allergy Anaphylaxis Verified 06/06/22 23:09 [From Bactrim] trimethoprim [From Bactrim] Allergy Anaphylaxis Verified 06/06/22 23:09 - Social History Does the pt smoke?: No Smoking Status: Never smoker Does the pt drink ETOH?: Yes Does the pt have substance abuse?: No - Immunizations Immunizations are current?: Yes - POLST Patient has POLST: No PD ED PE NORMAL - General General: Alert and oriented X 3, No acute distress, Well developed/nourished - HEENT HEENT: Atraumatic, Moist mucous membranes - Neck Neck: Supple, no meningeal sign - Cardiac Cardiac: RRR, No murmur, Strong equal pulses - Respiratory Respiratory: No respiratory distress, Clear bilaterally - Abdomen Abdomen: Normal bowel sounds, Soft, Non distended, Other (No rebound, no guarding). 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 CLOUDY Urine pH 7.5 Ur Specific [place] 1.015 Urine Protein NEGATIVE Urine Glucose (UA) NEGATIVE Urine Ketones NEGATIVE Urine Occult Blood NEGATIVE Urine Nitrite POSITIVE H Urine Bilirubin NEGATIVE Urine Urobilinogen 0.2 (NORMAL) Ur Leukocyte Esterase SMALL H Urine RBC None Seen Urine WBC 4-5 Ur Squamous Epith Cells FEW Squamous Amorphous Sediment Few Urine Bacteria Moderate H Ur Microscopic Review INDICATED Urine Culture Comments INDICATED Urine HCG, Qual NEGATIVE C. glabrata (PCR) POSITIVE A C. krusei (PCR) NEGATIVE [place] species DNA NEGATIVE T. vaginalis (PCR) NEGATIVE Bact Vaginosis (PCR) NEGATIVE 06/07/22 02:30 Urine Color Urine Clarity Urine pH Ur Specific [place] Urine Protein Urine Glucose (UA) Urine Ketones Urine Occult Blood Urine Nitrite Urine Bilirubin Urine Urobilinogen Ur Leukocyte Esterase Urine RBC Urine WBC Ur Squamous Epith Cells Amorphous Sediment Urine Bacteria Ur Microscopic Review Urine Culture Comments Urine HCG, Qual C. glabrata (PCR) C. krusei (PCR) [place] species DNA T. vaginalis (PCR) TNP Bact Vaginosis (PCR) PD MEDICAL DECISION MAKING - ED course ED course: Patient with intermittent episodes of pelvic pain and 1 week of vaginal discharge. Vaginal swabs obtained and are pending at time of discharge. Urine analysis is concerning for an infection and she does have suprapubic tenderness. We will treat with Macrobid and patient is to follow-up with her urologist. No significant pelvic tenderness on exam. Do not suspect ovarian torsion or TOA. No symptoms of PID on exam. Patient overall has a very benign abdominal exam. Her vital signs are stable. She is advised on return precautions. Departure - Departure Disposition: 01 Home, Self Care Clinical Impression: Cystitis, Vaginal discharge Condition: Stable Instructions: ED UTI Cystitis Female Prescriptions: Nitrofurantoin [Macrobid] 1 cap PO BID #10 cap Comments: Your urine showed signs of an infection. I have started you on Macrobid and sent [facility] prescription to [facility] [place]. We also obtained some swabs to check your vaginal discharge. At this time the swab results are not back but we will notify you of any significant abnormal results. I have also given you a pamphlet on how to access your patient portal So that you may also have access to results in the future. Please follow-up with your primary care doctor And urologist. If you have any worsening symptoms please consider return to the emergency department. Discharge Date/Time: 06/07/22 03:10
[2022-06-07 03:10] VITALS: BP 110/86
[2022-06-07 04:32] LABS: BACTERIAL VAGINOSIS DNA NEGATIVE (NEGATIVE); CANDIDA GLABRATA DNA POSITIVE (NEGATIVE); CANDIDA GROUP DNA NEGATIVE (NEGATIVE); CANDIDA KRUSEI DNA NEGATIVE (NEGATIVE); TRICHOMONAS VAGINALIS DNA NEGATIVE (NEGATIVE)
[2022-06-07 05:30] LABS: CHLAMYDIA TRACHOMATIS DNA NEGATIVE (NEGATIVE); NEISSERIA GONORRHOEAE DNA NEGATIVE (NEGATIVE)
== END 2022-06-07 03:10 | disposition home or self-care (01) ==
LOC: ED 22:50
DX: N30.90 Cystitis, unspecified without hematuria (principal); N89.8 Other specified noninflammatory disorders of vagina
CPT/HCPCS: 81001; 81025; 81514; 87077; 87086; 87181; 87491; 87591; 99282; 99283; A9270; 81003; 87661

== ENCOUNTER 2022-08-14 17:01 | Emergency (ER) | payer OTHER ==
[2022-08-14 18:11] LABS: BASOPHILS % (AUTO) 0.3 %; EOSINOPHILS % (AUTO) 0.2 %; HCT - HEMATOCRIT 35.3 % (37.0-47.0); HGB - HEMOGLOBIN 11.3 g/dL (12.0-16.0); LYMPHOCYTES # (AUTO) 1.3 10^3/uL (1.5-3.5); LYMPHOCYTES % (AUTO) 20.6 %; MEAN CORPUSCULAR HEMOGLOBIN 29.1 pg (27.0-31.0); MEAN PLATELET VOLUME 9.6 fL (7.9-10.8); MONOCYTES # (AUTO) 0.4 10^3/uL (0.0-1.0); MONOCYTES % (AUTO) 6.5 %; NEUTROPHILS # (AUTO) 4.5 10^3/uL (1.5-6.6); NEUTROPHILS % (AUTO) 72.2 %; PLT - PLATELET COUNT 263 10^3/uL (130-450); RED BLOOD COUNT 3.88 10^6/uL (4.20-5.40); RED CELL DISTRIBUTION WIDTH 13.2 % (12.0-15.0); WHITE BLOOD COUNT 6.2 x10^3/uL (4.8-10.8)
[2022-08-14 18:24] LABS: ALBUMIN 4.3 g/dL (3.2-5.5); BILIRUBIN,TOTAL 0.6 mg/dL (0.2-1.0); CREATININE 0.7 mg/dL (0.4-1.0); POTASSIUM 3.6 mmol/L (3.5-5.0); TOTAL PROTEIN 8.4 g/dL (6.7-8.2)
--- NOTE | 2022-08-14 19:12 | Ultrasound Report ---
PROCEDURE: Pelvic w/Transvag+Doppler Comp INDICATIONS: pelvic pain TECHNIQUE: Real-time scanning was performed of the pelvic organs, with image documentation. Additional endovagi nal scanning was necessary due to incomplete visualization of the adnexal and endometrial structures by transabdominal scanning. Doppler interrogation was performed of the ovaries bilaterally. COMPARISON: None. FINDINGS: No pathologic free abdominal or pelvic fluid. Uterus: Uterus is normal in size at 6.0 x 2.7 x 5.2 cm. The endometrium measures 6.2 mm in combined thickness. Uterine echotexture is homogenous. Ovaries/adnexa: No torsion is identified; both ovaries demonstrate flow. No adnexal fluid. The r ight ovary measures 4.7 x 1.9 x 4.3 cm. A hemorrhagic cyst of the right ovary measures 2.5 x 1.5 x 1. 9 cm. The left ovary and measures 2.5 x 2.2 x 2.6 cm. IMPRESSION: 1. No acute abnormality. 2. Hemorrhagic left ovarian cyst. 3. The left ovary is shifted to the right adnexa, unchanged compared to prior ultrasound on 12/08/2021. 4. No evidence of torsion. Reviewed by: Ab Edouard on 08/14/2022 7:11 PM PDT Approved by: Ab Edouard on 08/14/2022 7:11 PM PDT Station ID: [id number]
[2022-08-14 19:49] LABS: BILIRUBIN,URINE NEGATIVE (NEGATIVE); GLUCOSE, URINE (UA) NEGATIVE (NEGATIVE); KETONES,URINE (UA) NEGATIVE (NEGATIVE); LEUKOCYTE ESTERASE, URINE NEGATIVE (NEGATIVE); NITRITE,URINE NEGATIVE (NEGATIVE); OCCULT BLOOD,URINE MODERATE (NEGATIVE); PROTEIN,URINE 30 mg/dL (NEGATIVE); UROBILINOGEN,URINE 0.2 (NORMAL) E.U./dL (NORMAL)
[2022-08-14 19:56] LABS: CLARITY,URINE CLOUDY (CLEAR)
[2022-08-14 19:57] LABS: AMORPHOUS SEDIMENT,UR Rare /LPF; BACTERIA,URINE Many /HPF (None Seen); HCG UR QUAL NEGATIVE; RBC,URINE 0-5 /HPF (0-5); SQUAMOUS EPITHELIAL CELL,UR MANY Squamous (<= Few)
[2022-08-14] MEDS ORDERED: KETOROLAC 15 MG/ML VIAL IVP STA (20:07)
[2022-08-14] MEDS ORDERED: KETOROLAC 30 MG/ML VIAL IM STA (20:12)
[2022-08-14] MEDS ORDERED: oxyCODONE/ACET 5/325 Prepack 4 PO STA (20:17)
--- NOTE | 2022-08-14 20:19 | ED Physician Documentation ---
PD HPI FEMALE - Stated complaint Stated Complaint: ABD PX,LOWER BACK PX - Chief complaint Chief Complaint: Abd Pain - History obtained from History obtained from: Patient - Additional information Additional information: 26yoF presents for 2 days of pelvic pain. Took motrin at home with minimal relief. She Went to urgent care earlier today, she states that they gave her a tramadol and referred her to the ER for further evaluation. She states that she has had this in the past and was diagnosed with a hemorrhagic cyst. Denies nausea, vomiting, constipation, diarrhea, . She is currently on her menstrual cycle Review of Systems Ten Systems: 10 systems reviewed and negative Constitutional: denies: Fever, Chills GI: denies: Abdominal Pain, Nausea, Vomiting : reports: Other (pelvic pain). 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 : Chronic bladder infection HEENT: None Psych: None Musculoskeletal: None Derm: None - Past Surgical History Past Surgical History: Yes General: Hiatal hernia repair - Present Medications Home Medications: Ambulatory Orders Medication Instructions Recorded Confirmed Mirtazapine 7.5 mg PO DAILY 08/14/22 08/14/22 - Allergies Allergies/Adverse Reactions: Allergies Allergy/AdvReac Type Severity Reaction Status Date / Time ciprofloxacin [From Cipro] Allergy Edema Verified 06/06/22 23:09 sulfamethoxazole Allergy Anaphylaxis Verified 06/06/22 23:09 [From Bactrim] trimethoprim [From Bactrim] Allergy Anaphylaxis Verified 06/06/22 23:09 - Social History Does the pt smoke?: No Smoking Status: Never smoker Does the pt drink ETOH?: Yes Does the pt have substance abuse?: No - Immunizations Immunizations are current?: Yes - POLST Patient has POLST: No PD ED PE NORMAL - Vitals Vital signs reviewed: Yes - General General: Alert and oriented X 3, No acute distress, Well developed/nourished - HEENT HEENT: Atraumatic, PERRL, EOMI - Cardiac Cardiac: RRR, No murmur, Strong equal pulses - Respiratory Respiratory: No respiratory distress, Clear bilaterally - Abdomen Abdomen: Soft, Non tender, Non distended - Derm Derm: Normal color, Warm and dry, No rash - Extremities Extremities: No deformity, No tenderness to palpate, Normal ROM s pain - Neuro Neuro: Alert and oriented X 3, news reporter 2-12 intact, No motor deficit, No sensory def icit, Normal speech - Psych Psych: Normal mood, Normal affect Results - Vitals Vitals: Vital Signs - 24 hr 08/14/22 08/14/22 08/14/22 17:27 19:32 20:29 Temperature 36.8 C 36.8 C 36.7 C Heart Rate 63 63 62 Respiratory 16 16 16 Rate Blood Pressure 112/67 112/67 115/62 O2 Saturation 98 98 99 Oxygen O2 Source Room air - Labs Labs: Laboratory Tests 08/14/22 08/14/22 08/14/22 18:06 18:06 19:22 WBC 6.2 RBC 3.88 L Hgb 11.3 L Hct 35.3 L MCV 91.0 MCH 29.1 MCHC 32.0 RDW 13.2 Plt Count 263 MPV 9.6 Neut # (Auto) 4.5 Lymph # (Auto) 1.3 L [place] # (Auto) 0.4 Eos # (Auto) 0.0 Baso # (Auto) 0.0 Absolute Nucleated RBC 0.00 Nucleated RBC % 0.0 Sodium 135 Potassium 3.6 Chloride 102 Carbon Dioxide 26 Anion Gap 7.0 BUN 8 Creatinine 0.7 Estimated GFR (MDRD) 121 Glucose 96 Calcium 9.0 Total Bilirubin 0.6 AST 21 ALT 13 Alkaline Phosphatase 74 Total Protein 8.4 H Albumin 4.3 Globulin 4.1 Albumin/Globulin Ratio 1.0 Lipase 34 Urine Color DARK YELLOW Urine Clarity CLOUDY Urine pH 6.0 Ur Specific [place] 1.020 Urine Protein 30 H Urine Glucose (UA) NEGATIVE Urine Ketones NEGATIVE Urine Occult Blood MODERATE H Urine Nitrite NEGATIVE Urine Bilirubin NEGATIVE Urine Urobilinogen 0.2 (NORMAL) Ur Leukocyte Esterase NEGATIVE Urine RBC 0-5 Urine WBC 4-5 Ur Squamous Epith Cells MANY Squamous H Amorphous Sediment Rare Urine Bacteria Many H Ur Microscopic Review INDICATED Urine Culture Comments NOT INDICATED Urine HCG, Qual NEGATIVE PD MEDICAL DECISION MAKING - ED course Complexity details: reviewed results, re-evaluated patient, considered differential, d/w patient ED course: Well-appearing female with pelvic pain. US shows hemorrhagic cyst. Patient hemodynamically stable, hemoglobin 11.3. Patient was informed of her results, counseled that since this is a second occurrence of severe pelvic pain requiring an ER visit she should follow-up with an [facility]. Prepack of Percocet sent with patient for breakthrough pain, otherwise she was counseled to take Tylenol and Motrin for her symptoms at home. Departure - Departure Disposition: Home, Self Care Clinical Impression: Hemorrhagic cyst of ovary Condition: Stable Instructions: Cyst Ovarian Tx, ED Cyst Ovarian Comments: Today you have a hemorrhagic cyst. Hemoglobin is stable. I recommend taking Tylenol and Motrin as needed for pain, you are also being sent home with a very short course of Percocets which are to be used for breakthrough pain. Since you have had this problem several times including today I recommend following up with an [facility]. Discharge Date/Time: 08/14/22 20:29
[2022-08-14 20:30] VITALS: BP 115/62
== END 2022-08-14 20:29 | disposition home or self-care (01) ==
LOC: ED 17:01
DX: N83.201 Unspecified ovarian cyst, right side (principal)
CPT/HCPCS: 36415; 80053; 81001; 81003; 81025; 83690; 85025; 87086; 93975; 96374; 99282

== ENCOUNTER 2022-11-27 08:00 | Outpatient (CLI) | payer OTHER ==
[2022-11-27 21:46] LABS: BACTERIAL VAGINOSIS DNA NEGATIVE (NEGATIVE)
[2022-11-27 21:47] LABS: CANDIDA GLABRATA DNA NEGATIVE (NEGATIVE); CANDIDA GROUP DNA NEGATIVE (NEGATIVE); CANDIDA KRUSEI DNA NEGATIVE (NEGATIVE); TRICHOMONAS VAGINALIS DNA NEGATIVE (NEGATIVE)
== END 2022-11-27 23:59 | disposition home or self-care (01) ==
LOC: LAB.N 08:00
PROVIDERS: ATTEND Nurse Practitioner
DX: N39.0 Urinary tract infection, site not specified (principal); N89.8 Other specified noninflammatory disorders of vagina
CPT/HCPCS: 81514; 87086; 87181